=== PATIENT | male | born 1945 | race Caucasian/White ===

== ENCOUNTER → 2021-01-06 13:40 | Outpatient (BNVA) | payer OTHER, SELFPAY | PROVIDERS: PCP Nurse Practitioner; Referring Provider Nurse Practitioner; Visit Provider Specialist | DX: M25.539 Pain in unspecified wrist (principal); M65.4 Radial styloid tenosynovitis [de Quervain] | CPT/HCPCS: 73110 ==

== ENCOUNTER 2021-01-06 15:38 | Outpatient (CLI) | payer OTHER, SELFPAY | END 2021-01-06 15:39 | disposition home or self-care (01) | LOC: SPT 15:39 | PROVIDERS: PCP Nurse Practitioner; Visit Provider Specialist | DX: Z46.89 Encounter for fitting and adjustment of other specified devices (principal); M65.4 Radial styloid tenosynovitis [de Quervain] | CPT/HCPCS: L3809 ==

== ENCOUNTER 2021-01-13 12:57 | Outpatient (CLI) | payer OTHER, SELFPAY ==
--- NOTE | 2021-01-13 13:03 | CT_ITS ---
WS: [id number] CTA THORACIC AORTA WITH AND WITHOUT CONTRAST. 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 TECHNIQUE: CT imaging of the thorax is performed with and without contrast. After noncontrast imaging is performed, CT angiogram is performed during injection of Omnipaque 350; 95 mL IV.. Sagittal and c oronal reconstructions, sagittal and coronal MIP imaging is submitted. All CT scans at [facility] use at least one of these dose optimization techniques: automated exposure control; mA and/o r kV adjustment per patient size (includes targeted exams where dose is matched to clinical indicatio n); or iterative reconstruction. DLP: 2330.79 mGy.cm COMPARISON: None available. Moderate atherosclerosis of the aorta. There is no aneurysm. Origin of the great vessels are all knutson nt with scattered atherosclerotic plaque. Innominate artery and the proximal RIGHT subclavian artery are normal. Proximal RIGHT common carotid artery and LEFT common carotid arteries are both patent. LE FT subclavian artery arises normally from the arch. There is a complete occlusion several centimeters distal to the origin of the LEFT subclavian artery. Complete occlusion extends over a length of 2.2 cm. Dominant LEFT vertebral artery supplying flow to the distal subclavian artery. There is an additi onal stenosis at the junction of the LEFT subclavian with LEFT axillary artery which is a very high-g rade stenosis, 80%. Hyperinflated lungs with chronic emphysema. There is a partially calcified nodule in the RIGHT upper lobe measuring 11 x 18 mm. There are additional scattered calcified nodules. No pleural effusion. No pneumonia. No adenopathy. Mild enlargement of the heart chambers. No pericardial effusion. Moderate s ize hiatal hernia. There is a mass in the RIGHT kidney measuring 15 mm. On the noncontrast examination is masses of incr eased density. Masses low-attenuation on the postcontrast images in the mid kidney. Cholelithiasis wi thout acute cholecystitis. Marked atherosclerotic plaque within the suprarenal aorta and mesenteric a rteries. Increase in thoracic kyphosis. CT/CT angio chest [id number] IMPRESSION: 1. 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 2. Dominant LEFT vertebral artery supplying blood to the distal subclavian art galileo. 3. There is an at additional high-grade stenosis, 80%, involving the LEFT subc lavian artery at its junction with the axillary artery. 4. Additional atherosclerotic plaque involving the aorta and remaining great v essels with no additional high-grade stenoses. 5. Partially calcified mass in the RIGHT upper lobe is probably a granuloma or hamartoma. 6. Hyperdense mass in the RIGHT kidney without significant enhancement. This m ay be hemorrhagic cyst or cyst with increased protein content. Suggest further evaluation by ultrasound to confirm findings. 7. Cholelithiasis without acute cholecystitis.
[2021-01-13 14:19] LABS: Blood Urea Nitrogen 27 mg/dL (8-23)
--- NOTE | 2021-01-13 14:47 | USCV_ITS ---
Art Hollins Age: 75 Gender: M : 1945 Exam Date: 01/13/2021 15:17 Ordering Phys: Britni Alvarez MD ([email or web address]) Technologist: Gloria Romano Exam Location: [facility] [place] Indication: MURMUR BP: 156 / 58 HR: 85 Rhythm: Sinus Technical Quality: Adequate MEASUREMENTS (Male / Female) Normal Values 2D ECHO LV Diastolic Diameter PLAX 4.4 cm 4.2 - 5.9 / 3.9 - 5.3 cm LV Systolic Diameter PLAX 3.0 cm LV Chamber Size 3.1 cm IVS Diastolic Thickness 1.4 cm 0.6 - 1.0 / 0.6 - 0.9 cm IVS Systolic Thickness 1.2 cm LVPW Diastolic Thickness 1.2 cm 0.6 - 1.0 / 0.6 - 0.9 cm LVPW Systolic Thickness 1.3 cm RV Chamber Size 2.1 cm LVOT Diameter 2.1 cm LV Ejection Fraction 2D Teich 59.2 % LV Ejection Fraction MOD 2C 22.5 % LV Ejection Fraction 2C AL 23.0 % LA Diameter 2.6 cm LA Width 3.7 cm LA Height 5.2 cm RA Width 3.4 cm RA Height 4.7 cm Aorta at Sinotubular Diameter 3.2 cm M-MODE LV Diastolic Diameter MM 4.3 cm 4.2 - 5.9 / 3.9 - 5.3 cm LV Systolic Diameter MM 3.0 cm LV Ejection Fraction MM Teich 58.3 % IVS Diastolic Thickness MM 0.8 cm 0.6 - 1.0 / 0.6 - 0.9 cm IVS Systolic Thickness MM 1.6 cm LVPW Diastolic Thickness MM 1.1 cm 0.6 - 1.0 / 0.6 - 0.9 cm LVPW Systolic Thickness MM 1.6 cm Aortic Annulus Diameter 3.9 cm LA Ao Ratio MM 0.7 MV E Point Septal Separation 0.4 cm DOPPLER AV Peak Velocity 149.0 cm/s LVOT Peak Velocity 101.0 cm/s AV Area Cont Eq vti 2.9 cm squared AV Area Cont Eq pk 2.3 cm squared MV Area PHT 3.4 cm squared Mitral E to A Ratio 1.3 MV E' Velocity 71.5 cm/s Mitral E to MV E' Ratio 12.9 Mitral E to LV E' Lateral Ratio 12.4 Mitral E to LV E' Septal Ratio 13.8 TR Peak Velocity 166.5 cm/s TR Peak Gradient 11.1 mmHg TR Mean Velocity 101.7 cm/s TR Mean Gradient 5.0 mmHg TR Velocity Time Integral 42.4 cm TV Peak E Velocity 67.0 cm/s Right Atrial Pressure 3.0 mmHg Pulmonary Artery Systolic Pressu 14.1 mmHg PV Peak Velocity 37.0 cm/s RV Acceleration Time 0.1 s RV Ejection Time 0.3 s RV AcT/ET 0.4 FINDINGS Left Ventricle Normal left ventricular size and systolic function with no regional wall motion abnormalities. Left ventricular ejection fraction is estimated at 65 %. Normal diastolic function. Right Ventricle Normal right ventricular size and systolic function. Right ventricular systolic pressure 14.1 mmHg. Right Atrium Right atrium not well visualized. Left Atrium Mildly increased left atrial size. Mitral Valve Mild mitral annular calcification. No mitral valve stenosis. Trace mitral valve regurgitation. Aortic Valve Aortic valve not well visualized. No aortic valve stenosis. Trace to mild aortic valve regurgitation. Tricuspid Valve Tricuspid valve not well visualized. Trace tricuspid valve regurgitation. Pulmonic Valve Pulmonic valve not well visualized. Pericardium No pericardial effusion. Aorta Aorta not well visualized. CONCLUSIONS 1. Normal left ventricular size and systolic function with no regional wall motion abnormalities. Left ventricular ejection fraction is estimated at 65 %. Normal diastolic function. 2. Normal right ventricular size and systolic function. 3. Trace to mild aortic valve regurgitation. 4. No prior similar studies to compare. Britni Alvarez MD (Electronically Signed) Final Date: 15 Jan 2021 13:24 S
[2021-01-13] MEDS: iohexol 350 mg/mL 100 mL Btl IV (15:06)
== END 2021-01-13 12:58 | disposition home or self-care (01) ==
LOC: RADWPI 14:15 → RAD 15:03
PROVIDERS: PCP Nurse Practitioner; Visit Provider Internal Medicine Cardiovascular Disease
DX: I77.1 Stricture of artery (principal); R01.1 Cardiac murmur, unspecified; Z01.812 Encounter for preprocedural laboratory examination; I70.8 Atherosclerosis of other arteries; R91.8 Other nonspecific abnormal finding of lung field; K80.20 Calculus of gallbladder without cholecystitis without obstruction
CPT/HCPCS: 71275; 82565; 84520; 93306

== ENCOUNTER → 2021-07-08 09:48 | Outpatient (BNVA) | payer OTHER, SELFPAY | PROVIDERS: PCP Nurse Practitioner; Visit Provider Urology | DX: R97.20 Elevated prostate specific antigen [PSA] (principal) | CPT/HCPCS: 81003; 84153 ==

== ENCOUNTER → 2022-04-20 13:51 | Outpatient (BNVA) | payer OTHER, SELFPAY | PROVIDERS: PCP Nurse Practitioner; Visit Provider Internal Medicine Cardiovascular Disease | DX: I10 Essential (primary) hypertension (principal); I77.1 Stricture of artery; E78.5 Hyperlipidemia, unspecified; Z87.891 Personal history of nicotine dependence | CPT/HCPCS: 99214 ==

== ENCOUNTER 2022-09-28 23:33 | Emergency (ER) | payer OTHER, SELFPAY ==
[2022-09-28 23:38] VITALS: BP 148/60; PULSE 92; RESP 18; TEMP 36.3; O2SAT 94; BMI 23.5
[2022-09-28 23:46] VITALS: BP 159/84; PULSE 86; RESP 18; O2SAT 100
--- NOTE | 2022-09-28 23:55 | CTR_ITS ---
PROCEDURE INFORMATION: Exam: CT Abdomen And Pelvis With Contrast Exam date and time: 09/29/2022 1:07 AM Age: 77 years old Clinical indication: Nausea and vomiting; Abdominal pain; Localized; Right lower quadrant (rlq); Prior surgery; Surgery type: Colon resection. Colostomy reversal. Patient HX: C/O rlq pain with n/v. History of diverticulitis and hiatal hernia. ; Additional info: Abd pain TECHNIQUE: Imaging protocol: Computed tomography of the abdomen and pelvis with contrast. Radiation optimization: All CT scans at this facility use at least one of these dose optimization techniques: automated exposure control; mA and/or kV adjustment per patient size (includes targeted exams where dose is matched to clinical indication); or iterative reconstruction. Contrast material: OMNI 350; Contrast volume: 75 ml; Contrast route: INTRAVENOUS (IV); COMPARISON: US renal BI* [id number] 11/17/2020 10:06 RADIATION DOSE METRICS: Total DLP (mGy-cm): 472.03 FINDINGS: Lungs: Moderate lung base interstitial scarring with early fibrosis possible. Heart: The heart is normal size. Diaphragm: Small hiatal hernia. Liver: Liver is mildly enlarged. Gallbladder and bile ducts: Few tiny calcified gallstones are present. Pancreas: Unremarkable with no suspicious mass. No ductal dilation. Spleen: The spleen is not enlarged. No suspicious enhancing mass is noted. Adrenal glands: Normal. No mass. Kidneys and ureters: Right mid renal hypodense mass lesion measures 2.1 cm. This is not a simple cyst on CT. Left extrarenal pelvis. Stomach and bowel: Multiple loops of small bowel measure up to about 4.2 cm. A right mid abdominal spigelian hernia is seen containing small bowel. This is likely strangulated/incarcerated. Sigmoid anastomotic postop changes. The colon is moderately fecal filled. Mild nonspecific gastric wall thickening. Distal small bowel loops are decompressed. Appendix: No evidence of appendicitis. Intraperitoneal space: No abscess or free air visualized. Mild diffuse mesenteric edema. Vasculature: Advanced diffuse vascular calcification noted. Lymph nodes: No enlarged lymph nodes. Urinary bladder: Unremarkable as visualized. Reproductive: Coarse prostatic calcifications. Large prostate. Bones/joints: Diffuse osteopenia. Mild lumbar degenerative change. Soft tissues: See Stomach and bowel finding. CT/CT abdomen pelvis w con* [id number] IMPRESSION: 1. Right mid abdominal spigelian hernia containing small bowel causes a moderate grade small bowel obstruction. This hernia appears strangulated/incarcerated. Advise emergent surgical consultation. 2. No abscess or free air. Diffuse mesenteric edema. 3. Cholelithiasis, very severe atherosclerosis, lung base fibrosis, constipation, and other findings above. 4. Right mid renal 2.1 cm hypodense mass or complex cyst. Advise outpatient ultrasound workup for this. 5. Call to provider has been initiated.
--- NOTE | 2022-09-28 23:56 | ED_ITS ---
HPI - Abdominal Pain General: Chief Complaint: Abdominal Pain Stated Complaint: stomach pain, dizzy, GI surgery history Time Seen by Provider: 09/28/22 23:37 Source: patient Mode of arrival: ambulatory Limitations: no limitations History of Present Illness: 77-year-old male who has had a history of dive rticulitis he states he had a rupture from his diverticulitis in 2010 had to have a colectomy he states he started having pain today having in the right lower quadrant he states pain is sharp he did have 1 episode of vomiting is also had a bowel movement today. He denies any fever he rates his pain a 6 out of 10 currently denies any worsening improving factors. Associated Symptoms: Reports nausea and vomiting; Denies chills, diarrhea, dysuria and fever(s) Review of Systems Const: Denies: fever(s), chills, body aches or change in appetite Eyes: Denies: blurry vision or eye discomfort ENMT: Denies: throat pain or dental pain Card: Denies: chest pain Resp: Denies: dyspnea GI: Reports: abdominal pain, nausea and vomiting; Denies: diarrhea : Denies: dysuria Musc: Denies: neck pain or back pain Skin/Breast: Denies: rash Neuro: Denies: headache(s) Psych: Denies: depression Kyaw/Lymph: Denies: easy bruising All/Imm: Denies: urticaria PFSH ED PFSH: Medical History COPD (chronic obstructive pulmonary disease) Diverticulosis Elevated PSA Hiatal hernia History of nonmelanoma skin cancer Hyperlipidemia Hypertension Low back pain Pulmonary embolism Pulmonary nodule Retinal ischemia Type 2 diabetes mellitus Vitamin D deficiency Surgical History H/O arthroscopic knee surgery History of colon resection History of tonsillectomy Hx of cataract surgery Family History Other CAD (coronary artery disease) Cancer Diabetes Hyperlipidemia Hypertension Stroke Denies family history of Clotting disorder Dementia Psychiatric illness Chronic kidney disease (CKD) Anesthesia complication Bleeding disorder Family history of premature coronary artery disease Lung disease Social History Smoking and tobacco status: former smoker Quit status (tobacco): has quit using tobacco Year quit tobacco: 2010 Former quit date comment: smoked 135 pack years Second hand smoke exposure: No Alcohol intake: current Alcohol intake frequency: holidays/special occasions only Physical Exam Const: COMMON NORMALS: no acute distress, patient oriented x3 and healthy appearing HENMT: COMMON NORMALS: normocephalic and atraumatic HEAD & SCALP: normocephalic and atraumatic Eye: COMMON NORMALS: Equal, round and reactive pupils present and EOMs intact bilaterally PUPIL: Yes Equal, round and reactive pupils present Neck/C-Spine: COMMON NORMALS: full ROM and supple Chest: COMMONS NORMALS: normal inspection of the chest and normal palpation of entire chest wall Resp: COMMON NORMALS: normal respiratory effort, No retractions, No use of accessory muscles and clear to auscultation bilaterally AUSCULTATION: clear to auscultation bilaterally Cardio: COMMON NORMALS: regular rate, regular rhythm and No murmurs present (C ardio) RATE: regular rate RHYTHM: regular rhythm GI: COMMON NORMALS: Normal to inspection, nondistended, normoactive bowel sounds present, Soft to palpation, non-tender and no masses PALPATION: Yes Soft to palpation Extremity: COMMON NORMALS: normal to inspection and full ROM Neuro: COMMON NORMALS: patient oriented x3, moves all extremities and no focal motor deficits Psych: COMMON NORMALS: mental status grossly normal, Normal thought process present and cooperative THOUGHT PROCESS: Normal thought process present Skin: COMMON NORMALS: no rashes or lesions noted and no wounds GENERAL SKIN EXAM: no rashes or lesions noted Course Vital Signs: Vital signs: Vital Signs Temperature 97.4 F L 09/28/22 23:38 Pulse Rate 82 09/29/22 00:46 Respiratory Rate 12 09/29/22 00:46 Blood Pressure 176/66 09/29/22 00:46 Pulse Oximetry 99 09/29/22 00:46 Oxygen Delivery Me thod 09/28/22 23:46 MDM - Abdominal Pain Medical Decision Making Patient presents here with abdominal pain caused by hernia was able to reduce his hernia without any difficulty he felt much improved after the reduction he stable for discharge at this time he is to follow-up with surgery and return if worsening he understands agrees to plan. Lab Data 09/29/22 00:08 09/29/22 00:08 Labs/Radiology: Radiology Impressions Abdomen/Pelvis CT 09/28/22 23:55 IMPRESSION: 1. Right mid abdominal spigelian hernia containing small bowel causes a moderate grade small bowel obstruction. This hernia appears strangulated/incarcerated. Advise emergent surgical consultation. 2. No abscess or free air. Diffuse mesenteric edema. 3. Cholelithiasis, very severe atherosclerosis, lung base fibrosis, constipation, and other findings above. 4. Right mid renal 2.1 cm hypodense mass or complex cyst. Advise outpatient ultrasound workup for this. 5. Call to provider has been initiated. ADDENDUM: 09/29/22 0141 THIS REPORT CONTAINS FINDINGS THAT MAY BE CRITICAL TO PATIENT CARE. The findings were verbally communicated via telephone conference at 1:39 AM [facility] on 09/29/[address] Wilson. The findings were acknowledged and understood. Laboratory Results WBC 13.3 10^3/uL (4.0-10.0) H 09/29/22 00:08 RBC 4.21 10^6/uL (4.1-5.3) 09/29/22 00:08 Hgb 13.4 g/dL (11.7-16.6) 09/29/22 00:08 Hct 40.2 % (42.0-52.0) L 09/29/22 00:08 MCV 95.5 fl (80-94) H 09/29/22 00:08 MCH 31.8 pg (28.0-34.0) 09/29/22 00:08 MCHC 33.3 g/dL (30.0-36.0) 09/29/22 00:08 RDW 11.9 % (12.1-15.1) L 09/29/22 00:08 Plt Count 196 10^3/cmm (130-400) 09/29/22 00:08 MPV 10.3 fL (7.4-10.4) 09/29/22 00:08 Neut % (Auto) 72.7 % 09/29/22 00:08 Lymph % (Auto) 5.4 % 09/29/22 00:08 Kinney % (Auto) 15.6 % 09/29/22 00:08 Eos % (Auto) 0.2 % 09/29/22 00:08 Baso % (Auto) 0.2 % 09/29/22 00:08 Neut # (Auto) 9.68 10^3/uL (1.8-7.7) H 09/29/22 00:08 Lymph # (Auto) 0.7 10^3/uL (0.8-4.8) L 09/29/22 00:08 Kinney # (Auto) 2.1 10^3/uL (0.2-0.9) H 09/29/22 00:08 Eos # (Auto) 0.0 10^3/uL (0.0-0.8) 09/29/22 00:08 Baso # (Auto) 0.0 10^3/uL (0.0-0.1) 09/29/22 00:08 Nucleated RBC % (auto) 0 % 09/29/22 00:08 Nucleated RBCs # 0.0 /100WBC 09/29/22 00:08 Sodium 139 mmol/L (136-145) 09/29/22 00:08 Potassium 4.2 mmol/L (3.5-5.1) 09/29/22 00:08 Chloride 102 mmol/L (98-107) 09/29/22 00:08 Carbon Dioxide 24 mmol/L (22-29) 09/29/22 00:08 Anion Gap 17.2 (5-19) 09/29/22 00:08 BUN 32 mg/dL (8-23) H 09/29/22 00:08 Creatinine 1.5 mg/dL (0.7-1.2) H 09/29/22 00:08 GFR Calculation Not Reportable 09/29/22 00:08 Glucose 143 mg/dL (65-115) H 09/29/22 00:08 Calculated Osmolality 297 mOsm/kg (285-295) H 09/29/22 00:08 Lactate 2.2 mmol/L (0.5-2.2) 09/29/22 00:08 Calcium 9.1 mg/dL (8.5-10.5) 09/29/22 00:08 Total Bilirubin 0.4 mg/dL (0.15-1.2) 09/29/22 00:08 AST 26 U/L (0-40) 09/29/22 00:08 ALT 14 U/L (0-41) 09/29/22 00:08 Alkaline Phosphatase 63 U/L (40-130) 09/29/22 00:08 Total Protein 6.9 g/dL (6.6-8.7) 09/29/22 00:08 Albumin 4.3 g/dL (3.5-5.2) 09/29/22 00:08 Globulin 2.6 g/dL (1.3-4.6) 09/29/22 00:08 Lipase 19 U/L (13-60) 09/29/22 00:08 Urine Color Yellow (Yellow) 09/29/22 01:02 Urine Appearance Clear (CLEAR) 09/29/22 01:02 Urine pH 7 (5-7) 09/29/22 01:02 Ur Specific [place] 1.010 (1.005-1.030) 09/29/22 01:02 Urine Protein 3+ (Negative) H 09/29/22 01:02 Urine Glucose (UA) Norm (Normal) 09/29/22 01:02 Urine Ketones Negative (Negative) 09/29/22 01:02 Urine Blood Neg (Negative) 09/29/22 01:02 Urine Nitrate Negative (Negative) 09/29/22 01:02 Urine Bilirubin Neg (Negative) 09/29/22 01:02 Urine Urobilinogen Norm mg/dL (Negative) 09/29/22 01:02 Ur Leukocyte Esterase Negative (Negative) 09/29/22 01:02 Urine RBC None /hpf (0-2) 09/29/22 01:02 Urine WBC None /hpf (0-5) 09/29/22 01:02 Ur Squamous Epith Cells 0-4 /hpf (0-5) H 09/29/22 01:02 Amorphous Sediment Trace /hpf 09/29/22 01:02 Urine Bacteria None /hpf (NONE) 09/29/22 01:02 Hyaline Casts 0-4 /lpf H 09/29/22 01:02 Discharge Plan Discharge Patient Disposition: Home Clinical Impression: Abdominal hernia Condition: Stable Prescriptions: No Action tramadol 50 mg tablet 50 mg PO DAILY PRN cholecalciferol (vitamin D3) 50 mcg (2,000 unit) capsule 50 mcg PO DAILY aspirin [Adult Low Dose Aspirin] 81 mg tablet,delayed release (DR/EC) 81 mg PO DAILY Metamucil 3.4 gram/5.4 gram powder 1 tbsp PO DAILY Rx Instructions: mix into at least 8 oz of water or juice before administering acetaminophen [Tylenol Extra Strength] 500 mg tablet 500 mg PO Q6H PRN Centrum Silver Ultra Men's 300-600-300 mcg tablet 1 tab PO DAILY atorvastatin 80 mg tablet 80 mg PO DAILY Qty: 90 3RF nifedipine 60 mg tablet extended release 24 hr 60 mg PO DAILY Qty: 90 3RF Rx Instructions: Takes 60 mg am and 30 mg PM nifedipine 30 mg tablet extended release 30 mg PO DAILY Qty: 90 3RF Rx Instructions: Takes 60 mg am and 30 mg PM furosemide 20 mg tablet 20 mg PO DAILY Qty: 90 3RF glipizide 10 mg tablet 10 mg PO DAILY Discharge Orders: Discharge ED (Routine); Ordered 09/29/22 Ordered By: Radha Wilson Referrals: Conor Aleman DO [Physician] - 1-3 days Loraine Salvador FNP [Primary Care Provider] - Discharge Activity: Resume usual activity Patient Instructions: Ventral Hernia (ED) Coding Level of Care Code 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
[2022-09-29] MEDS: sodium chloride 0.9% 1,000 ML 999 ML IV (00:06)
[2022-09-29] MEDS: ondansetron 2 mg/ML SDV 2 mL 4 MG IVP (00:06)
[2022-09-29] MEDS: HYDROmorphone 1 mg/mL INJ 1 mL 0.5 MG IVP (00:14)
[2022-09-29 00:28] LABS: Basophils % 0.2 %; Eosinophils % 0.2 %; Hematocrit 40.2 % (42.0-52.0); Hemoglobin 13.4 g/dL (11.7-16.6); Lymphocytes # 0.7 10^3/uL (0.8-4.8); Lymphocytes % 5.4 %; Mean Corpuscular HGB Conc 33.3 g/dL (30.0-36.0); Mean Corpuscular Hemoglobin 31.8 pg (28.0-34.0); Mean Corpuscular Volume 95.5 fl (80-94); Mean Platelet Volume 10.3 fL (7.4-10.4); Monocytes # 2.1 10^3/uL (0.2-0.9); Monocytes % 15.6 %; Neutrophils # 9.68 10^3/uL (1.8-7.7); Neutrophils % 72.7 %; Nucleated Red Blood Cells % 0 %; Platelet Count 196 10^3/cmm (130-400); Red Blood Count 4.21 10^6/uL (4.1-5.3); Red Cell Distribution Width 11.9 % (12.1-15.1); White Blood Count 13.3 10^3/uL (4.0-10.0)
[2022-09-29 00:46] VITALS: BP 176/66; PULSE 82; RESP 12; O2SAT 99
[2022-09-29 00:46] LABS: Alanine Aminotransferase 14 U/L (0-41); Albumin Level 4.3 g/dL (3.5-5.2); Alkaline Phosphatase 63 U/L (40-130); Anion Gap 17.2 (5-19); Aspartate Amino Transferase 26 U/L (0-40); Blood Urea Nitrogen 32 mg/dL (8-23); Calcium 9.1 mg/dL (8.5-10.5); Carbon Dioxide 24 mmol/L (22-29); Chloride 102 mmol/L (98-107); Globulin 2.6 g/dL (1.3-4.6); Glucose 143 mg/dL (65-115); Lipase 19 U/L (13-60); Osmolality Calculated 297 mOsm/kg (285-295); Potassium 4.2 mmol/L (3.5-5.1); Sodium 139 mmol/L (136-145); Total Bilirubin 0.4 mg/dL (0.15-1.2); Total Protein 6.9 g/dL (6.6-8.7)
[2022-09-29 00:47] LABS: Lactate (Lactic Acid level) 2.2 mmol/L (0.5-2.2)
[2022-09-29 00:57] LABS: Creatinine Clr Calc Pharmacy 40.2492
[2022-09-29] MEDS: iohexol 350 mg/mL 500 mL Btl (per mL) IV (01:08)
[2022-09-29 01:28] LABS: Slide Review Slide Review Perform
[2022-09-29 01:29] LABS: Urine Appearance Clear (CLEAR); Urine Color Yellow (Yellow)
[2022-09-29 01:30] LABS: Add Urine Microscopic? YES; Bilirubin Urine Neg (Negative); Blood Urine Neg (Negative); Glucose Urine UA Norm (Normal); Ketones Urine Negative (Negative); Leukocyte Esterase Urine Negative (Negative); Nitrate Urine Negative (Negative); Protein Urine 3+ (Negative); Urobilinogen Urine Norm (Negative); pH Urine 7 (5-7)
[2022-09-29 01:31] LABS: Add Urine Culture? No; Amorphous Sediment Urine TRACE /hpf; Hyaline Casts Urine 0-4 /lpf; Squamous Epithelial Cell Urine 0-4 /hpf (0-5)
[2022-09-29 01:54] VITALS: BP 174/50; PULSE 96; O2SAT 96
--- NOTE | 2022-09-29 10:26 | DCPLANNER ---
Addendum entered by Danna Monroe 09/30/22 11:13: manager cosmetic received the following message from the general surgery clinic regarding follow up appointment: Spoke to Pt he has [facility] and [employer] - made Pt aware that we could not use [facility] due to provider not in network... Pt stated he only wanted to use [facility] please refer elsewhere. manager cosmetic spoke with patient, and he stated [facility]. manager cosmetic emailed Karolina [facility], and informed her of this. Original Note: manager cosmetic had message to schedule a follow up appointment for patient with general surgery. manager cosmetic sent patients information to the front office staff at general surgery. Patients information will be printed and reviewed. Clinic will call patient with appointment information.
== END 2022-09-29 01:55 | disposition home or self-care (01) ==
PROVIDERS: Emergency Provider Emergency Medicine; PCP Nurse Practitioner
DX: K46.9 Unspecified abdominal hernia without obstruction or gangrene (principal); Z79.84 Long term (current) use of oral hypoglycemic drugs; Z79.82 Long term (current) use of aspirin; Z87.891 Personal history of nicotine dependence; J44.9 Chronic obstructive pulmonary disease, unspecified; E78.5 Hyperlipidemia, unspecified; I10 Essential (primary) hypertension; E11.9 Type 2 diabetes mellitus without complications
CPT/HCPCS: 74177; 80053; 81001; 83605; 83690; 85025; 96361; 96374; 99285; J1170; J2405; J7030; Q9967

== ENCOUNTER → 2023-01-18 13:33 | Outpatient (BNVA) | payer OTHER, SELFPAY | PROVIDERS: PCP Nurse Practitioner; Visit Provider Nurse Practitioner Family | DX: I10 Essential (primary) hypertension (principal); E78.5 Hyperlipidemia, unspecified; Z87.891 Personal history of nicotine dependence; Z79.82 Long term (current) use of aspirin | CPT/HCPCS: 99214 ==

== ENCOUNTER → 2023-02-07 14:25 | Outpatient (BNVA) | payer OTHER, SELFPAY | PROVIDERS: PCP Nurse Practitioner; Visit Provider Dermatology | DX: L57.0 Actinic keratosis (principal); L81.4 Other melanin hyperpigmentation; L82.1 Other seborrheic keratosis; Z85.828 Personal history of other malignant neoplasm of skin; Z87.891 Personal history of nicotine dependence | CPT/HCPCS: 17000; 17003; 99213 ==

== ENCOUNTER 2023-02-27 14:40 | Oncology outpatient (recurring) (ONCR) | payer OTHER, SELFPAY ==
[2023-02-27 15:32] LABS: Basophils % 0.6 %; Eosinophils # 0.2 10^3/uL (0.0-0.8); Eosinophils % 3.3 %; Hematocrit 34.4 % (42.0-52.0); Hemoglobin 11.4 g/dL (11.7-16.6); Lymphocytes % 36.4 %; Mean Corpuscular HGB Conc 33.1 g/dL (30.0-36.0); Mean Corpuscular Hemoglobin 31.4 pg (28.0-34.0); Mean Corpuscular Volume 94.8 fl (80-94); Mean Platelet Volume 9.8 fL (7.4-10.4); Monocytes # 0.8 10^3/uL (0.2-0.9); Monocytes % 14.5 %; Neutrophils # 2.28 10^3/uL (1.8-7.7); Neutrophils % 42.4 %; Nucleated Red Blood Cells % 0 %; Platelet Count 154 10^3/cmm (130-400); Red Blood Count 3.63 10^6/uL (4.1-5.3); Red Cell Distribution Width 12.1 % (12.1-15.1); White Blood Count 5.4 10^3/uL (4.0-10.0)
== END 2023-03-10 23:59 | disposition home or self-care (01) ==
PROVIDERS: PCP Nurse Practitioner; Visit Provider Internal Medicine Medical Oncology
DX: D64.9 Anemia, unspecified (principal); Z87.891 Personal history of nicotine dependence
CPT/HCPCS: 36415; 85025; 99203

== ENCOUNTER 2023-03-07 11:14 | Emergency (ER) | payer OTHER, SELFPAY ==
[2023-03-07 11:20] VITALS: BP 152/64; PULSE 83; RESP 16; TEMP 36.5; O2SAT 96; BMI 23.8
--- NOTE | 2023-03-07 11:59 | XR_ITS ---
WS: [id number] Exam: XR chest 1V portable [id number] Date/Time of Exam: 03/07/2023 12:03 PM Reason For Exam: dyspnea/cough No previous exams. Questionable 2.5 cm ill-defined nodular density involving the right suprahilar region. The lungs are hyperinflated and otherwise clear. No pleural effusions. Cardiomediastinal silhouette is unremarkable . Atherosclerotic plaquing of the thoracic aorta. Regional bony elements are intact. Recommendations: Nonemergent contrast CT scanning of the chest would be recommended for further erinn p. XR/XR chest 1V portable [id number] IMPRESSION: 1. Questionable 2.5 cm left suprahilar nodule. Pulmonary neoplasm not excluded. 2. Pulmonary hyperinflation which may indicate obstructive lung disease.
--- NOTE | 2023-03-07 12:09 | W.ED.SYNCOPE ---
HPI - Syncope General: Chief Complaint: Syncope Stated Complaint: Loc last night, weakness, N/V, Time Seen by Provider: 03/07/23 11:29 Source: patient Mode of arrival: ambulatory History of Present Illness: 77-year-old male presents emergency room via private vehicle. Patient states he has not been feeling well lately has been having a lot of diarrhea and nausea he got up from his recliner to go back to a room to change close because he had been sweating and wanted some clean dry close when he got to his bedroom he states he had become dizzy and lightheaded he fell down and was unable to get up he fell asleep on the floor for several hours and then crawled back to the couch in the living room and laid there he was unable to get any help this morning he was finally able to get someone to come and help him that brought him to the emergency room and diarrhea has stopped he still is somewhat nauseous. No associated chest pains or palpitations MD complaint: collapsed Onset (ago): hour(s) Prodromal symptoms: lightheaded Witnessed: No Context: standing up Injuries sustained associated with event: none Associated symptoms: Reports lightheadedness and nausea; Deny abdominal pain, chest pain or fever(s) Treatments prior to arrival: none Review of Systems Const: Denies: fever(s), chills, body aches, change in appetite, fatigue or malaise ENMT: Denies: throat pain, ear or mastoid pain, nasal discharge or nasal congestion Card: Reports: lightheadedness; Denies: chest pain, palpitations or irregular heart rhythm Resp: Denies: dyspnea, productive cough or non-productive cough GI: Reports: nausea and diarrhea; Denies: abdominal pain : Denies: flank pain, dysuria, urinary frequency or urinary urgency Skin/Breast: Denies: rash or pruritus PFSH ED PFSH: Medical History COPD (chronic obstructive pulmonary disease) Diverticulosis Elevated PSA Hiatal hernia History of nonmelanoma skin cancer Hyperlipidemia Hypertension Low back pain Pulmonary embolism Pulmonary nodule Retinal ischemia Type 2 diabetes mellitus Vitamin D deficiency Surgical History H/O arthroscopic knee surgery History of colon resection History of tonsillectomy Hx of cataract surgery Family History Other CAD (coronary artery disease) Cancer Diabetes Hyperlipidemia Hypertension Stroke Denies family history of Clotting disorder Dementia Psychiatric illness Chronic kidney disease (CKD) Anesthesia complication Bleeding disorder Family history of premature coronary artery disease Lung disease Social History Smoking and tobacco status: former smoker Quit status (tobacco): has quit using tobacco Year quit tobacco: 2010 Former quit date comment: smoked 135 pack years Second hand smoke exposure: No Alcohol intake: current Alcohol intake frequency: holidays/special occasions only Substance/Drug Use: never Physical Exam Const: GENERAL APPEARANCE: cooperative and comfortable ORIENTATION/CONSCIOUSNESS: Yes awake, Yes oriented to person, Yes oriented to place and Yes oriented to time HENMT: COMMON NORMALS: normocephalic, atraumatic and hearing grossly normal bilaterally HEAD & SCALP: normocephalic and atraumatic Resp: COMMON NORMALS: normal respiratory effort, No retractions, No use of accessory muscles and clear to auscultation bilaterally AUSCULTATION: clear to auscultation bilaterally Cardio: COMMON NORMALS: regular rate, regular rhythm and No murmurs present (Cardio) RATE: regular rate RHYTHM: regular rhythm GI: COMMON NORMALS: Soft to palpation and No hepatosplenomegaly present AUSCULTATION: Yes normoactive bowel sounds PALPATION: Yes Soft to palpation, No Tenderness to palpation present (GI), No Guarding due to palpation present (GI) and Yes No hepatosplenomegaly present Extremity: COMMON NORMALS: normal to inspection, capillary refill normal, no clubbing, cyanosis or edema, no calf tenderness and no pedal edema Neuro: SENSORIUM/ORIENTATION: Yes oriented to person, Yes oriented to place and Yes oriented to time Skin: COMMON NORMALS: no rashes or lesions noted GENERAL SKIN EXAM: no rashes or lesions noted Course Vital Signs: Vital signs: Vital Signs Temperature 97.7 F 03/07/23 11:20 Pulse Rate 84 03/07/23 13:50 Respiratory Rate 18 03/07/23 12:11 Blood Pressure 152/51 03/07/23 13:50 Pulse Oximetry 97 03/07/23 12:11 Oxygen Delivery Me thod Room Air 03/07/23 12:11 MDM - Syncope Medical Decision Making After IV fluids pt is feeling better. WIll dicharge home. Liquid diet and advance as tolerated return if has further problems Medical Records I reviewed the patient's medical records. Lab Data I reviewed the patient's lab results. 03/07/23 12:14 03/07/23 12:14 Radiology Impressions Chest X-Ray 03/07/23 11:59 IMPRESSION: 1. Questionable 2.5 cm left suprahilar nodule. Pulmonary neoplasm not excluded. 2. Pulmonary hyperinflation which may indicate obstructive lung disease. Laboratory Results WBC 16.6 10^3/uL (4.0-10.0) H 03/07/23 12:14 RBC 4.11 10^6/uL (4.1-5.3) 03/07/23 12:14 Hgb 12.7 g/dL (11.7-16.6) 03/07/23 12:14 Hct 39.3 % (42.0-52.0) L 03/07/23 12:14 MCV 95.6 fl (80-94) H 03/07/23 12:14 MCH 30.9 pg (28.0-34.0) 03/07/23 12:14 MCHC 32.3 g/dL (30.0-36.0) 03/07/23 12:14 RDW 12.4 % (12.1-15.1) 03/07/23 12:14 Plt Count 176 10^3/cmm (130-400) 03/07/23 12:14 MPV 10.3 fL (7.4-10.4) 03/07/23 12:14 Neut % (Auto) 79.8 % 03/07/23 12:14 Lymph % (Auto) 5.1 % 03/07/23 12:14 [place] % (Auto) 10.1 % 03/07/23 12:14 Eos % (Auto) 0.1 % 03/07/23 12:14 Baso % (Auto) 0.1 % 03/07/23 12:14 Neut # (Auto) 13.25 10^3/uL (1.8-7.7) H 03/07/23 12:14 Lymph # (Auto) 0.8 10^3/uL (0.8-4.8) 03/07/23 12:14 [place] # (Auto) 1.7 10^3/uL (0.2-0.9) H 03/07/23 12:14 Eos # (Auto) 0.0 10^3/uL (0.0-0.8) 03/07/23 12:14 Baso # (Auto) 0.0 10^3/uL (0.0-0.1) 03/07/23 12:14 Nucleated RBC % (auto) 0 % 03/07/23 12:14 Nucleated RBCs # 0.0 /100WBC 03/07/23 12:14 Sodium 142 mmol/L (136-145) 03/07/23 12:14 Potassium 5.0 mmol/L (3.5-5.1) 03/07/23 12:14 Chloride 104 mmol/L (98-107) 03/07/23 12:14 Carbon Dioxide 25 mmol/L (22-29) 03/07/23 12:14 Anion Gap 18.0 (5-19) 03/07/23 12:14 BUN 37 mg/dL (8-23) H 03/07/23 12:14 Creatinine 1.4 mg/dL (0.7-1.2) H 03/07/23 12:14 GFR Calculation Not Reportable 03/07/23 12:14 Glucose 127 mg/dL (65-115) H 03/07/23 12:14 Calculated Osmolality 304 mOsm/kg (285-295) H 03/07/23 12:14 Calcium 9.1 mg/dL (8.5-10.5) 03/07/23 12:14 Total Bilirubin 0.9 mg/dL (0.15-1.2) 03/07/23 12:14 AST 25 U/L (0-40) 03/07/23 12:14 ALT 22 U/L (0-41) 03/07/23 12:14 Alkaline Phosphatase 71 U/L (40-130) 03/07/23 12:14 Troponin T Baseline 39 ng/L (0-15) H 03/07/23 12:14 Troponin T 120 Minute 38.52 ng/L (0-15) H 03/07/23 13:53 Delta Troponin T -0.48 ABS# (0-10) L 03/07/23 13:53 Total Protein 5.9 g/dL (6.6-8.7) L 03/07/23 12:14 Albumin 4.1 g/dL (3.5-5.2) 03/07/23 12:14 Globulin 1.8 g/dL (1.3-4.6) 03/07/23 12:14 Discharge Plan Discharge Patient Disposition: Home Clinical Impression: Syncope due to orthostatic hypotension Condition: Stable Prescriptions: No Action tramadol 50 mg tablet 50 mg PO DAILY PRN (Reason: Pain) cholecalciferol (vitamin D3) 50 mcg (2,000 unit) capsule 50 mcg PO DAILY aspirin [Adult Low Dose Aspirin] 81 mg tablet,delayed release (DR/EC) 81 mg PO DAILY acetaminophen [Tylenol Extra Strength] 500 mg tablet 500 mg PO Q6H PRN (Reason: Pain) Metamucil 3.4 gram/5.4 gram powder 1 tbsp PO BID Rx Instructions: mix into at least 8 oz of water or juice before administering Centrum Silver Ultra Men's 300-600-300 mcg tablet 1 tab PO DAILY atorvastatin 80 mg tablet 80 mg PO DAILY Qty: 90 3RF furosemide 20 mg tablet 20 mg PO DAILY Qty: 90 3RF nifedipine 60 mg tablet extended release 24hr 60 mg PO QAM nifedipine 30 mg tablet extended release 30 mg PO QPM simethicone [Gas-X Extra Strength] 125 mg capsule 125 mg PO DAILY PRN (Reason: Gastric Reflux) Discharge Orders: Discharge ED (Routine); Ordered 03/07/23 Ordered By: Serge Stevenson Referrals: Loraine Salvador FNP [Primary Care Provider] - Discharge Diet: Usual diet Discharge Activity: Limit activity as instructed Patient Instructions: Opioid Safety, Pain Management Activity Restrictions/Additional Instructions: Avoid exertional activity, increase fluid intake. Recheck with your doctor in the next 2 days. If you have any worsening or changes symptoms return to the emergency room. Coding Level of Care Code ED [employer] Manufacturer for Vicki Jackson
[2023-03-07 12:11] VITALS: PULSE 77; RESP 18; O2SAT 97
--- NOTE | 2023-03-07 12:23 | ECG_ITS ---
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 Measurements Intervals [place] Rate: 67 P: 15 [place]: 151 QRS: 81 QRSD: 93 T: 9 QT: 400 QTc: 425 Interpretive Statements SINUS RHYTHM WITH SINUS ARRHYTHMIA NONSPECIFIC T-WAVE ABNORMALITY No previous ECG available for comparison Electronically Signed On 03-09-2023 9:58:57 CDT by Ashu Dukes M.D. [id number]
[2023-03-07] MEDS: sodium chloride 0.9% 1,000 ML 999 ML IV (12:24)
[2023-03-07 12:41] LABS: Basophils % 0.1 %; Eosinophils % 0.1 %; Hematocrit 39.3 % (42.0-52.0); Hemoglobin 12.7 g/dL (11.7-16.6); Lymphocytes # 0.8 10^3/uL (0.8-4.8); Lymphocytes % 5.1 %; Mean Corpuscular HGB Conc 32.3 g/dL (30.0-36.0); Mean Corpuscular Hemoglobin 30.9 pg (28.0-34.0); Mean Corpuscular Volume 95.6 fl (80-94); Mean Platelet Volume 10.3 fL (7.4-10.4); Monocytes # 1.7 10^3/uL (0.2-0.9); Monocytes % 10.1 %; Neutrophils # 13.25 10^3/uL (1.8-7.7); Neutrophils % 79.8 %; Nucleated Red Blood Cells % 0 %; Platelet Count 176 10^3/cmm (130-400); Red Blood Count 4.11 10^6/uL (4.1-5.3); Red Cell Distribution Width 12.4 % (12.1-15.1); White Blood Count 16.6 10^3/uL (4.0-10.0)
[2023-03-07 12:59] LABS: Troponin(5th) Baseline 39 ng/L (0-15)
[2023-03-07 13:02] LABS: Alanine Aminotransferase 22 U/L (0-41); Albumin Level 4.1 g/dL (3.5-5.2); Alkaline Phosphatase 71 U/L (40-130); Aspartate Amino Transferase 25 U/L (0-40); Blood Urea Nitrogen 37 mg/dL (8-23); Calcium 9.1 mg/dL (8.5-10.5); Carbon Dioxide 25 mmol/L (22-29); Chloride 104 mmol/L (98-107); Globulin 1.8 g/dL (1.3-4.6); Glucose 127 mg/dL (65-115); Osmolality Calculated 304 mOsm/kg (285-295); Sodium 142 mmol/L (136-145); Total Bilirubin 0.9 mg/dL (0.15-1.2); Total Protein 5.9 g/dL (6.6-8.7)
[2023-03-07 13:50] VITALS: BP 152/51; BP 161/51; BP 167/54; PULSE 78; PULSE 84; PULSE 88
--- NOTE | 2023-03-07 14:00 | ECG_ITS ---
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 Measurements Intervals [place] Rate: 68 P: 38 [place]: 133 QRS: 71 QRSD: 100 T: 11 QT: 412 QTc: 440 Interpretive Statements SINUS RHYTHM NONSPECIFIC T-WAVE ABNORMALITY Compared to ECG 03/07/2023 12:23:53 Sinus arrhythmia no longer present T-wave abnormality still present Electronically Signed On 03-09-2023 12:26:34 CDT by Ashu Dukes M.D. [id number]
[2023-03-07 14:22] LABS: Troponin 5 2HR 38.52 ng/L (0-15)
[2023-03-07 14:24] LABS: Troponin 5 2HR Delta -0.48 ABS# (0-10)
--- NOTE | 2023-03-13 09:51 | PC.SOCIAL ---
Addendum entered by Danna Monroe 04/14/23 08:49: Patient had a follow up appointment scheduled with [facility] - patient did attend appointment Addendum entered by Danna Monroe 03/27/23 16:05: Patient has a follow up appointment scheduled for Tuesday, April 11, [address]23 at 2:[address] Connelly at [facility]. Addendum entered by Danna Monroe 03/22/23 15:25: Referral was sent to pulmonology for review, clinic will call patient with appointment information. Original Note: Oncology F/u Referral to oncology at this time; clinic to contact patient with appt date/time.
== END 2023-03-07 15:28 | disposition home or self-care (01) ==
PROVIDERS: Emergency Provider Family Medicine; PCP Nurse Practitioner
DX: I95.1 Orthostatic hypotension (principal); Z79.82 Long term (current) use of aspirin; Z87.891 Personal history of nicotine dependence; J44.9 Chronic obstructive pulmonary disease, unspecified; E78.5 Hyperlipidemia, unspecified; I10 Essential (primary) hypertension; E11.9 Type 2 diabetes mellitus without complications
CPT/HCPCS: 36415; 71045; 80053; 84484; 85025; 93005; 99285; J7030

== ENCOUNTER → 2023-04-11 13:25 | Outpatient (BNVA) | payer OTHER, SELFPAY | PROVIDERS: PCP Nurse Practitioner; Visit Provider Internal Medicine Pulmonary Disease | DX: J44.9 Chronic obstructive pulmonary disease, unspecified; R91.1 Solitary pulmonary nodule; Z87.891 Personal history of nicotine dependence; K44.9 Diaphragmatic hernia without obstruction or gangrene | CPT/HCPCS: 99214 ==

== ENCOUNTER 2023-05-02 12:32 | Outpatient (CLI) | payer OTHER, SELFPAY | END 2023-05-02 12:33 | disposition home or self-care (01) | LOC: RT 12:33 | PROVIDERS: PCP Nurse Practitioner; Visit Provider Internal Medicine Pulmonary Disease | DX: R06.02 Shortness of breath (principal) | CPT/HCPCS: 94010; 94618; 94726; 94729; 99214 ==

== ENCOUNTER → 2023-10-10 13:27 | Outpatient (BNVA) | payer OTHER, SELFPAY | PROVIDERS: PCP Nurse Practitioner; Visit Provider Nurse Practitioner Family | DX: Z85.828 Personal history of other malignant neoplasm of skin (principal); L81.4 Other melanin hyperpigmentation; L82.1 Other seborrheic keratosis; L57.8 Other skin changes due to chronic exposure to nonionizing radiation; D22.4 Melanocytic nevi of scalp and neck; L57.0 Actinic keratosis; L60.3 Nail dystrophy | CPT/HCPCS: 17000; 99213 ==

== ENCOUNTER 2023-10-26 13:25 | Outpatient (CLI) | payer OTHER, SELFPAY ==
--- NOTE | 2023-10-26 13:32 | US_ITS ---
WS: [id number] RENAL ULTRASOUND HISTORY: BILATERAL RENAL US COMPARISON: None available. TECHNIQUE: 2-D and color Doppler imaging of the kidney submitted. Right kidney: 9.6 cm x 4.6 cm x 4.7 cm. Cortex: 1.6 cm Normal echogenicity with no hydronephrosis or mass. Left kidney: 9.9 cm x 4.7 cm x 4.7 cm. Cortex: 1.4 cm Normal echogenicity with no hydronephrosis or mass. Aorta: Poorly visualized. Urinary Bladder: Normally distended. There is a small posterior bladder diverticulum containing debri s. IMPRESSION: 1. No hydronephrosis or mass. No obstruction. 2. No cortical thinning. 3. Small posterior bladder wall diverticulum.
== END 2023-10-26 13:26 | disposition home or self-care (01) ==
LOC: RAD 13:26
PROVIDERS: PCP Nurse Practitioner; Visit Provider Nurse Practitioner
DX: Z01.89 Encounter for other specified special examinations (principal); N32.3 Diverticulum of bladder
CPT/HCPCS: 76770

== ENCOUNTER → 2023-11-21 11:26 | Outpatient (BNVA) | payer OTHER, SELFPAY | PROVIDERS: PCP Nurse Practitioner; Visit Provider Internal Medicine Cardiovascular Disease | DX: E78.5 Hyperlipidemia, unspecified (principal); I10 Essential (primary) hypertension; I70.8 Atherosclerosis of other arteries; E11.9 Type 2 diabetes mellitus without complications; J44.9 Chronic obstructive pulmonary disease, unspecified; I73.9 Peripheral vascular disease, unspecified; I74.3 Embolism and thrombosis of arteries of the lower extremities; Z79.01 Long term (current) use of anticoagulants; Z87.891 Personal history of nicotine dependence | CPT/HCPCS: 99214 ==

== ENCOUNTER 2023-11-28 14:28 | Inpatient (IN) | payer OTHER, SELFPAY ==
[2023-11-28] VITALS (8 sets, daily range): BP systolic 170–186; BP diastolic 54–132; PULSE 86–99; RESP 16–20; TEMP 36.5–36.9; O2SAT 88–98; BMI 25.9
--- NOTE | 2023-11-28 14:42 | PC.PHAR ---
Addendum entered by Poonam Reynolds 11/28/23 15:16: REFAXED 3:15PM Original Note: [facility] FAXING FOR MED LIST 2:40PM 11/28/23
--- NOTE | 2023-11-28 14:44 | XR_ITS ---
WS: [id number] Portable AP upright chest, 11/28/2023 Clinical Data: dyspnea/cough Comparison: Portable chest, 03/07/2023 Findings: No nodules or masses are seen. There are small bilateral pleural effusions. There is a pat tavon peripheral opacity in the right lung which could represent atelectasis and/or pneumonia. The hear t is normal. The pulmonary vascularity is not increased. No pneumonia or pneumothorax is seen. The ao rtic arch shows calcification and tortuosity. Monitor leads are on the chest wall. Impression: 1. Atherosclerosis. 2. Small bilateral pleural effusions. 3. Peripheral patchy right lung opacity which could represent pneumonia or atelectasis.
--- NOTE | 2023-11-28 14:45 | ED_ITS ---
Documented by User: Serge Stevenson DO 11/29/23 07:45 HPI - SOB/Dyspnea 2 General: Chief Complaint: Shortness of Breath/Dyspnea Stated Complaint: SOB Time Seen by Provider: 11/28/23 14:30 Source: patient Mode of arrival: ambulatory History of Present Illness: HPI Narrative: 78-year-old male arrives to the ER via a [facility]. He was seen at the [facility] for shortness of breath and referred here. Initially arrived he was on 4 to 5 L of oxygen we titrated that down he seemed to maintain okay for a time and normally does not wear oxygen he was noted to have increased work of breathing. He denies chest pain. Later in the visit he was noted to desat into the upper 80s on room air and is oxygen of 3 started at 2 L/min. He denies any nausea vomiting or diarrhea. The [facility] was also concerned about EKG changes. He denies chest pain on arrival here. MD elicited complaint: shortness of breath Pertinent past history: COPD Exacerbating factors: nothing Relieving factors: nothing Known history of: COPD Associated symptoms: Reports cough; Deny abdominal pain, chest congestion, chest pain, diaphoresis, dizziness, extremity pain, fever(s), hemoptysis, lightheadedness, myalgias, nausea, orthopnea, palpitations, paresthesias, polydipsia, polyuria, rash, sense of impending doom, syncope or vomiting Treatment prior to arrival: oxygen Related Data: Home oxygen amount: none Review of Systems 2 Const: Denies: fever(s) or diaphoresis Card: Denies: chest pain, palpitations, lightheadedness, syncope or orthopnea Resp: Denies: hemoptysis or chest congestion GI: Denies: abdominal pain, nausea or vomiting Musc: Denies: extremity pain Neuro: Denies: dizziness Endo: Denies: polyuria or polydipsia PFSH ED 2 PFSH: Medical History Pulmonary vascular congestion Embolism and thrombosis of arteries of the lower extremities Peripheral arterial disease History of nonmelanoma skin cancer COPD (chronic obstructive pulmonary disease) Elevated PSA Pulmonary embolism Hypertension Hyperlipidemia Low back pain Retinal ischemia Pulmonary nodule Type 2 diabetes mellitus Vitamin D deficiency Diverticulosis Hiatal hernia Surgical History History of colon resection History of tonsillectomy H/O arthroscopic knee surgery Hx of cataract surgery Family History Other CAD (coronary artery disease) Cancer Diabetes Hyperlipidemia Hypertension Stroke Denies family history of Clotting disorder Dementia Psychiatric illness Chronic kidney disease (CKD) Anesthesia complication Bleeding disorder Family history of premature coronary artery disease Lung disease Social History Smoking and tobacco/nicotine status: former use of tobacco/nicotine Quit status (tobacco/nicotine): has quit using Year quit tobacco: 2010 Former quit date comment: smoked 135 pack years Second hand smoke exposure: No Alcohol intake: current Alcohol intake frequency: holidays/special occasions only Substance/Drug Use: never Physical Exam 2 Const: GENERAL APPEARANCE: cooperative ORIENTATION/CONSCIOUSNESS: Yes awake, Yes oriented to person, Yes oriented to place and Yes oriented to time HENMT: COMMON NORMALS: normocephalic, atraumatic and hearing grossly normal bilaterally HEAD & SCALP: normocephalic and atraumatic Resp: AUSCULTATION: rhonchi and wheezes Cardio: COMMON NORMALS: regular rate, regular rhythm and No murmurs present (Cardio) RATE: regular rate RHYTHM: regular rhythm GI: COMMON NORMALS: Soft to palpation and No hepatosplenomegaly present A USCULTATION: Yes normoactive bowel sounds PALPATION: Yes Soft to palpation, No Tenderness to palpation present (GI), No Guarding due to palpation present (GI) and Yes No hepatosplenomegaly present Extremity: COMMON NORMALS: normal to inspection, capillary refill normal, no clubbing, cyanosis or edema, no calf tenderness and no pedal edema Neuro: SENSORIUM/ORIENTATION: Yes oriented to person, Yes oriented to place and Yes oriented to time Skin: COMMON NORMALS: no rashes or lesions noted GENERAL SKIN EXAM: no rashes or lesions noted Course 2 Vital Signs: Vital signs: Vital Signs Temperature 98.4 F 11/29/23 04:00 Pulse Rate 87 11/29/23 04:00 Respiratory Rate 18 11/29/23 04:00 Blood Pressure 168/63 11/29/23 04:00 Pulse Oximetry 91 11/29/23 04:00 Oxygen Delivery Me thod Nasal Cannula 11/29/23 04:00 Oxygen Flow Rate 2 11/29/23 04:00 MDM - SOB/Dyspnea Medical Decision Making Care signed out to Dr. Bradley at change of shift. See final notes for diagnosis and disposition. Physical exam completed and documented, reviewed the CBC, CMP chest x-ray which demonstrated concern for vascular congestion and increased work of breathing. Medical Records I reviewed the patient's medical records. Lab Data 11/29/23 05:17 11/29/23 05:17 Labs/Radiology: Laboratory Results WBC 8.78 10^3/uL (3.29-11.43) 11/28/23 14:36 RBC 4.06 10^6/uL (3.85-5.65) 11/28/23 14:36 Hgb 12.80 g/dL (11.27-16.99) 11/28/23 14:36 Hct 38.5 % (37-53) 11/28/23 14:36 MCV 94.8 fl (82-101) 11/28/23 14:36 MCH 31.5 pg (27-33) 11/28/23 14:36 MCHC 33.2 g/dL (30-55) 11/28/23 14:36 RDW 12.1 % (12.1-15.1) 11/28/23 14:36 Plt Count 210 10^3/cmm (157-399) 11/28/23 14:36 MPV 10.5 fL (7.4-10.4) H 11/28/23 14:36 Neut % (Auto) 56.4 % 11/28/23 14:36 Lymph % (Auto) 15.4 % 11/28/23 14:36 Sioux % (Auto) 20.6 % 11/28/23 14:36 Eos % (Auto) 0.2 % 11/28/23 14:36 Baso % (Auto) 0.1 % 11/28/23 14:36 Neut # (Auto) 4.95 10^3/uL (1.8-7.7) 11/28/23 14:36 Lymph # (Auto) 1.4 10^3/uL (0.8-4.8) 11/28/23 14:36 [place]oux # (Auto) 1.8 10^3/uL (0.2-0.9) H 11/28/23 14:36 Eos # (Auto) 0.0 10^3/uL (0.0-0.8) 11/28/23 14:36 Baso # (Auto) 0.0 10^3/uL (0.0-0.1) 11/28/23 14:36 Nucleated RBC % (auto) 0 % 11/28/23 14:36 Nucleated RBCs # 0.0 /100WBC 11/28/23 14:36 D-Dimer 1.24 ug/mLFEU (0-0.59) H 11/28/23 14:36 Sodium 142 mmol/L (136-145) 11/28/23 14:36 Potassium 4.2 mmol/L (3.5-5.1) 11/28/23 14:36 Chloride 105 mmol/L (98-107) 11/28/23 14:36 Carbon Dioxide 23 mmol/L (22-29) 11/28/23 14:36 Anion Gap 18.2 (5-19) 11/28/23 14:36 BUN 44 mg/dL (8-23) H 11/28/23 14:36 Creatinine 1.6 mg/dL (0.7-1.2) H 11/28/23 14:36 GFR Calculation Not Reportable 11/28/23 14:36 Glucose 141 mg/dL (65-115) H 11/28/23 14:36 Calculated Osmolality 308 mOsm/kg (285-295) H 11/28/23 14:36 Lactic Acid 1.9 mmol/L (0.5-2.2) 11/28/23 14:36 Calcium 9.3 mg/dL (8.5-10.5) 11/28/23 14:36 Total Bilirubin 0.9 mg/dL (0.15-1.2) 11/28/23 14:36 AST 20 U/L (0-40) 11/28/23 14:36 ALT 13 U/L (0-41) 11/28/23 14:36 Alkaline Phosphatase 91 U/L (40-130) 11/28/23 14:36 Troponin T Baseline 52 ng/L (0-15) H 11/28/23 14:36 Troponin T 120 Minute 44.69 ng/L (0-15) H 11/28/23 17:00 Delta Troponin T -7.31 ABS# (0-10) L 11/28/23 17:00 NT-Pro-B Natriuret Pep 4093 pg/mL (0-450) H 11/28/23 14:36 Total Protein 7.4 g/dL (6.6-8.7) 11/28/23 14:36 Albumin 4.1 g/dL (3.5-5.2) 11/28/23 14:36 Globulin 3.3 g/dL (1.3-4.6) 11/28/23 14:36 Procalcitonin 0.14 ng/mL (0-0.5) 11/28/23 14:36 TSH 1.54 uIU/mL (0.27-4.20) 11/28/23 17:00 Urine Color Light yellow (Yellow) 11/28/23 19:01 Urine Appearance Clear (CLEAR) 11/28/23 19:01 Urine pH 7 (5-7) 11/28/23 19:01 Ur Specific Lamar 1.010 (1.005-1.030) 11/28/23 19:01 Urine Protein 2+ (Negative) H 11/28/23 19:01 Urine Glucose (UA) Norm (Normal) 11/28/23 19:01 Urine Ketones Negative (Negative) 11/28/23 19: Urine Blood Neg (Negative) 11/28/23 19:01 Urine Nitrate Negative (Negative) 11/28/23 19:01 Urine Bilirubin Neg (Negative) 11/28/23 19:01 Urine Urobilinogen Norm mg/dL (Negative) 11/28/23 19: Ur Leukocyte Esterase Negative (Negative) 11/28/23 19:01 Urine RBC Rare /hpf (0-2) 11/28/23 19:01 Urine WBC Rare /hpf (0-5) 11/28/23 19:01 Ur Squamous Epith Cells 0-4 /hpf (0-5) H 11/28/23 19:01 Amorphous Sediment Not Reportable 11/28/23 19:01 Urine Bacteria None /hpf (NONE) 11/28/23 19:01 Urine Mucus None /hpf 11/28/23 19:01 Discharge Plan Discharge Patient Disposition: Admitted As Inpatient Admit Provider: Margo Curtis Clinical Impression: Hypoxemia, Acute dyspnea, Pulmonary vascular congestion Pneumonia Qualifiers: Pneumonia type: due to unspecified organism Laterality: right Lung location: l ower lobe of lung Qualified Code(s): J18.9 - Pneumonia, unspecified organism Condition: Stable Coding Level of Care Code ED Ethnic Origins Teacher for Chg Fwd Documented by User: Jcarlos Bradley MD 11/28/23 18:26 HPI - SOB/Dyspnea 2 General: Chief Complaint: Shortness of Breath/Dyspnea Stated Complaint: SOB Time Seen by Provider: 11/28/23 14:30 History of Present Illness: HPI Narrative: 78-year-old male presents emergency depa rtment with increased shortness of breath he was seen at the [facility] and they advised him to come to the emergency department. They ultimately called EMS due to concerns of his increased shortness of breath and concerns for EKG changes in their office. Patient presents here with increased work of breathing requiring supplemental oxygen. There was not oxygen weaning trial and the patient's oxygen saturation level decreased to 87 to 88% on room air. He was placed back on 2 L nasal cannula supplemental oxygen. Review of Systems 2 Resp: Reports: dyspnea, non-productive cough and wheezing PFSH ED 2 PFSH: Medical History Pulmonary vascular congestion Embolism and thrombosis of arteries of the lower extremities Peripheral arterial disease History of nonmelanoma skin cancer COPD (chronic obstructive pulmonary disease) Elevated PSA Pulmonary embolism Hypertension Hyperlipidemia Low back pain Retinal ischemia Pulmonary nodule Type 2 diabetes mellitus Vitamin D deficiency Diverticulosis Hiatal hernia Surgical History History of colon resection History of tonsillectomy H/O arthroscopic knee surgery Hx of cataract surgery Family History Other CAD (coronary artery disease) Cancer Diabetes Hyperlipidemia Hypertension Stroke Denies family history of Clotting disorder Dementia Psychiatric illness Chronic kidney disease (CKD) Anesthesia complication Bleeding disorder Family history of premature coronary artery disease Lung disease Social History Smoking and tobacco/nicotine status: former use of tobacco/nicotine Quit status (tobacco/nicotine): has quit using Year quit tobacco: 2010 Former quit date comment: smoked 135 pack years Second hand smoke exposure: No Alcohol intake: current Alcohol intake frequency: holidays/special occasions only Substance/Drug Use: never Physical Exam 2 Narrative: EXAM NARRATIVE: Constitutional: the patient appears well nourished and with normal development. Vital signs reviewed as documented. HENMT: Normocephalic, atraumatic. External ears normal appearance without drainage. Nose without drainage, normal appearance. Mucus membranes moist. Neck is supple, No jugular venous distension, trachea is midline, no appreciable carotid bruits. No lymphadenopathy. No meningeal signs. Flexion, extension and lateral rotation is without pain. Eyes: Pupils are equal, round, reactive to light and accommodation. No scleral icterus. Extra-ocular movement are intact. Thorax is symmetrical and with equal rise and fall with respirations. Resp: Decreased bilaterally in the bases. No wheezes, rales, crackles or ronchi at present. Cardio: Regular rate and rhythm. Positive S1, S2. No appreciable murmurs, rubs or gallops. GI: Abdominal exam reveals normal bowel sounds to all quadrants. No organomegaly. No obvious palpable masses noted. No hepatomegally appreciated. Soft, non-tender to palpation. Extremity: Extremities are non-edematous and both femoral and pedal pulses are 2+ and equal bilaterally. Moves all extremities well, sensation in all extremities. Patient's right great toe is slightly discolored and purple and cool to touch. 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 Neuro: Alert and oriented x4, person, place, time and situation. Motor strength in the upper and lower extremities are equal and bilateral 5/5. Psych: Cooperative, calm, normal thought process, appropriate judgment. Skin: No lesions, rashes. No gross abnormalities noted. Discoloration noted to the right great toe consistent with blue toe syndrome currently receiving anticoagulation treatment. Back: Symmetrical, no obvious deformity, No CVA tenderness Course 2 Vital Signs: Vital signs: Vital Signs Temperature 98.4 F 11/29/23 04:00 Pulse Rate 87 11/29/23 04:00 Respiratory Rate 18 11/29/23 04:00 Blood Pressure 168/63 11/29/23 04:00 Pulse Oximetry 91 11/29/23 04:00 Oxygen Delivery Me thod Nasal Cannula 11/29/23 04:00 Oxygen Flow Rate 2 11/29/23 04:00 MDM - SOB/Dyspnea Medical Decision Making Physical exam completed and documented, reviewed the CBC, CMP chest x-ray which demonstrated concern for vascular congestion and increased work of breathing. Lab Data I reviewed the patient's lab results. 11/29/23 05:17 11/29/23 05:17 Labs/Radiology: Laboratory Results WBC 8.78 10^3/uL (3.29-11.43) 11/28/23 14:36 RBC 4.06 10^6/uL (3.85-5.65) 11/28/23 14:36 Hgb 12.80 g/dL (11.27-16.99) 11/28/23 14:36 Hct 38.5 % (37-53) 11/28/23 14:36 MCV 94.8 fl (82-101) 11/28/23 14:36 MCH 31.5 pg (27-33) 11/28/23 14:36 MCHC 33.2 g/dL (30-55) 11/28/23 14:36 RDW 12.1 % (12.1-15.1) 11/28/23 14:36 Plt Count 210 10^3/cmm (157-399) 11/28/23 14:36 MPV 10.5 fL (7.4-10.4) H 11/28/23 14:36 Neut % (Auto) 56.4 % 11/28/23 14:36 Lymph % (Auto) 15.4 % 11/28/23 14:36 Sioux % (Auto) 20.6 % 11/28/23 14:36 Eos % (Auto) 0.2 % 11/28/23 14:36 Baso % (Auto) 0.1 % 11/28/23 14:36 Neut # (Auto) 4.95 10^3/uL (1.8-7.7) 11/28/23 14:36 Lymph # (Auto) 1.4 10^3/uL (0.8-4.8) 11/28/23 14:36 Sioux # (Auto) 1.8 10^3/uL (0.2-0.9) H 11/28/23 14:36 Eos # (Auto) 0.0 10^3/uL (0.0-0.8) 11/28/23 14:36 Baso # (Auto) 0.0 10^3/uL (0.0-0.1) 11/28/23 14:36 Nucleated RBC % (auto) 0 % 11/28/23 14:36 Nucleated RBCs # 0.0 /100WBC 11/28/23 14:36 D-Dimer 1.24 ug/mLFEU (0-0.59) H 11/28/23 14:36 Sodium 142 mmol/L (136-145) 11/28/23 14:36 Potassium 4.2 mmol/L (3.5-5.1) 11/28/23 14:36 Chloride 105 mmol/L (98-107) 11/28/23 14:36 Carbon Dioxide 23 mmol/L (22-29) 11/28/23 14:36 Anion Gap 18.2 (5-19) 11/28/23 14:36 BUN 44 mg/dL (8-23) H 11/28/23 14:36 Creatinine 1.6 mg/dL (0.7-1.2) H 11/28/23 14:36 GFR Calculation Not Reportable 11/28/23 14:36 Glucose 141 mg/dL (65-115) H 11/28/23 14:36 Calculated Osmolality 308 mOsm/kg (285-295) H 11/28/23 14:36 Lactic Acid 1.9 mmol/L (0.5-2.2) 11/28/23 14:36 Calcium 9.3 mg/dL (8.5-10.5) 11/28/23 14:36 Total Bilirubin 0.9 mg/dL (0.15-1.2) 11/28/23 14:36 AST 20 U/L (0-40) 11/28/23 14:36 ALT 13 U/L (0-41) 11/28/23 14:36 Alkaline Phosphatase 91 U/L (40-130) 11/28/23 14:36 Troponin T Baseline 52 ng/L (0-15) H 11/28/23 14:36 Troponin T 120 Minute 44.69 ng/L (0-15) H 11/28/23 17:00 Delta Troponin T -7.31 ABS# (0-10) L 11/28/23 17:00 NT-Pro-B Natriuret Pep 4093 pg/mL (0-450) H 11/28/23 14:36 Total Protein 7.4 g/dL (6.6-8.7) 11/28/23 14:36 Albumin 4.1 g/dL (3.5-5.2) 11/28/23 14:36 Globulin 3.3 g/dL (1.3-4.6) 11/28/23 14:36 Procalcitonin 0.14 ng/mL (0-0.5) 11/28/23 14:36 TSH 1.54 uIU/mL (0.27-4.20) 11/28/23 17:00 Urine Color Light yellow (Yellow) 11/28/23 19: Urine Appearance Clear (CLEAR) 11/28/23 19:01 Urine pH 7 (5-7) 11/28/23 19:01 Ur Specific Lamar 1.010 (1.005-1.030) 11/28/23 19:01 Urine Protein 2+ (Negative) H 11/28/23 19:01 Urine Glucose (UA) Norm (Normal) 11/28/23 19:01 Urine Ketones Negative (Negative) 11/28/23 19:01 Urine Blood Neg (Negative) 11/28/23 19:01 Urine Nitrate Negative (Negative) 11/28/23 19: Urine Bilirubin Neg (Negative) 11/28/23 19:01 Urine Urobilinogen Norm mg/dL (Negative) 11/28/23 19:01 Ur Leukocyte Esterase Negative (Negative) 11/28/23 19:01 Urine RBC Rare /hpf (0-2) 11/28/23 19:01 Urine WBC Rare /hpf (0-5) 11/28/23 19:01 Ur Squamous Epith Cells 0-4 /hpf (0-5) H 11/28/23 19:01 Amorphous Sediment Not Reportable 11/28/23 19:01 Urine Bacteria None /hpf (NONE) 11/28/23 19:01 Urine Mucus None /hpf 11/28/23 19:01 All radiology interpretation(s) finalized by discharge Discharge Plan Discharge Patient Disposition: Admitted As Inpatient Admit Provider: Margo Curtis Clinical Impression: Hypoxemia, Acute dyspnea, Pulmonary vascular congestion Pneumonia Qualifiers: Pneumonia type: due to unspecified organism Laterality: right Lung location: l ower lobe of lung Qualified Code(s): J18.9 - Pneumonia, unspecified organism Condition: Stable Coding Level of Care Code ED Ethnic Origins Teacher for Vicki Jackson
[2023-11-28 14:57] LABS: Basophils % 0.1 %; Eosinophils % 0.2 %; Hematocrit 38.5 % (37-53); Lymphocytes # 1.4 10^3/uL (0.8-4.8); Lymphocytes % 15.4 %; Mean Corpuscular HGB Conc 33.2 g/dL (30-55); Mean Corpuscular Hemoglobin 31.5 pg (27-33); Mean Corpuscular Volume 94.8 fl (82-101); Mean Platelet Volume 10.5 fL (7.4-10.4); Monocytes # 1.8 10^3/uL (0.2-0.9); Monocytes % 20.6 %; Neutrophils # 4.95 10^3/uL (1.8-7.7); Neutrophils % 56.4 %; Nucleated Red Blood Cells % 0 %; Platelet Count 210 10^3/cmm (157-399); Red Blood Count 4.06 10^6/uL (3.85-5.65); Red Cell Distribution Width 12.1 % (12.1-15.1); White Blood Count 8.78 10^3/uL (3.29-11.43)
[2023-11-28] MEDS: sodium chloride 0.9% 500 ML 999 ML IV (15:15)
[2023-11-28 15:21] LABS: Alanine Aminotransferase 13 U/L (0-41); Albumin Level 4.1 g/dL (3.5-5.2); Alkaline Phosphatase 91 U/L (40-130); Anion Gap 18.2 (5-19); Aspartate Amino Transferase 20 U/L (0-40); Blood Urea Nitrogen 44 mg/dL (8-23); Calcium 9.3 mg/dL (8.5-10.5); Carbon Dioxide 23 mmol/L (22-29); Chloride 105 mmol/L (98-107); Creatinine Clr Calc Pharmacy 37.1531; Globulin 3.3 g/dL (1.3-4.6); Glucose 141 mg/dL (65-115); Osmolality Calculated 308 mOsm/kg (285-295); Potassium 4.2 mmol/L (3.5-5.1); Sodium 142 mmol/L (136-145); Total Bilirubin 0.9 mg/dL (0.15-1.2); Total Protein 7.4 g/dL (6.6-8.7)
[2023-11-28 15:26] LABS: Slide Review Slide Review Perform
[2023-11-28 15:35] LABS: Troponin(5th) Baseline 52 ng/L (0-15)
[2023-11-28 17:47] LABS: Troponin 5 2HR 44.69 ng/L (0-15)
[2023-11-28 17:50] LABS: Troponin 5 2HR Delta -7.31 ABS# (0-10)
--- NOTE | 2023-11-28 18:23 | ECG_ITS ---
[facility] Test Date: 2023-11-28 Pat Name: Art Hollins Department: Room: Gender: Male Black Belt: : 1945 Requested By: Serge Santa Order Number: [id number] Jonathan MD: Raheel Guillen M.D. Measurements Intervals [place] Rate: 97 P: 46 GA: 125 QRS: 88 QRSD: 93 T: 28 QT: 348 QTc: 444 Interpretive Statements SINUS RHYTHM WITH FREQUENT VENTRICULAR PREMATURE COMPLEXES MODERATE T-WAVE ABNORMALITY, CONSIDER ANTERIOR ISCHEMIA [-0.1+ mV T-WAVE IN V3/V4] Compared to ECG 03/07/2023 14:26:31 Ventricular premature complex(es) now present Possible ischemia now present T-wave abnormality still present Electronically Signed On 11-28-2023 21:37:24 CDT by Raheel Guillen M.D. [id number]
[2023-11-28] MEDS: cefTRIAXone 2,000 MG in sodium chloride 0.9% (plus) 50 ML 100 MG IV (18:32)
[2023-11-28 18:56] LABS: Lactic Sepsis W/Reflex 1.9 mmol/L (0.5-2.2)
[2023-11-28 19:25] LABS: NT Pro B Type Natriuretic Pept 4093 pg/mL (0-450); Procalcitonin 0.14 ng/mL (0-0.5)
[2023-11-28 19:35] LABS: Urine Color Light yellow (Yellow)
[2023-11-28 19:36] LABS: Add Urine Microscopic? YES; Bilirubin Urine Neg (Negative); Blood Urine Neg (Negative); Glucose Urine UA Norm (Normal); Ketones Urine Negative (Negative); Leukocyte Esterase Urine Negative (Negative); Nitrate Urine Negative (Negative); Protein Urine 2+ (Negative); Urine Appearance Clear (CLEAR); Urobilinogen Urine Norm (Negative); pH Urine 7 (5-7)
[2023-11-28 19:44] LABS: Add Urine Culture? No; RBC Urine RARE /hpf (0-2); Squamous Epithelial Cell Urine 0-4 /hpf (0-5); WBC Urine RARE /hpf (0-5)
--- NOTE | 2023-11-28 20:23 | P.HP_ITS ---
Providers/Chief Complaint 2 Admitting Physician: Margo Curtis MD Primary Care Provider: JAMES Penn Chief Complaint: SOB History of Present Illness Art Hollins is a 78 year old male with previous history of subclavian steal syndrome, peripheral vascular disease, atherosclerotic disease, right upper lobe granuloma/hematoma, blue toe syndrome, presented to hospital with chief complaint of worsening shortness of breath. Patient stating that for last few days he has been experiencing orthopnea PND and shortness of breath, he has not noticed any significant diarrhea, vomiting or nausea but endorsing low-grade fever 99.7, no sick contacts. Patient has follow-up with Dr. Brown for his blue toe syndrome, Dr. Brown has started him on Eliquis, there is plan to do an angiogram in the future once creatinine is better he carries history of chronic kidney stage III. In the ER he has been diagnosed with pneumonia and congestive heart failure. Currently not on oxygen He was complaining of right toe pain, paresthesias on clinical exam PVCs with sinus rhythm, D-dimer is high, troponin trending down BNP is high Review of Systems 2 Const: Denies: fever(s) Eyes: Denies: change in vision ENMT: Denies: throat pain Card: Reports: swelling of feet/ankles Resp: Reports: dyspnea and non-productive cough GI: Denies: abdominal pain : Denies: flank pain Musc: Denies: neck pain Skin/Breast: Denies: rash Medications/Allergies Home Medications Medication Instructions Recorded Confirmed Last Taken Type acetaminophen 500 mg tablet 500 mg PO Q6H PRN Pain 12/08/20 11/28/23 Unknown History (Tylenol Extra Strength) cholecalciferol (vitamin D3) 50 50 mcg PO DAILY 12/08/20 11/28/23 03/06/23 History mcg (2,000 unit) capsule [id number] 300 mcg-K 60 1 tab PO DAILY 07/08/21 11/28/23 03/06/23 History mcg-lycop 600 mcg-lutein 300 mcg tablet (Centrum Silver Ultra Men's) tramadol 50 mg tablet 50 mg PO DAILY PRN Pain 10/18/21 11/28/23 Unknown History atorvastatin 80 mg tablet 80 mg PO DAILY #90 tabs 04/20/22 11/28/23 03/06/23 Rx psyllium husk 3.4 gram/5.4 gram 1 tbsp PO BID 01/18/23 11/28/23 03/06/23 History oral powder (Metamucil) nifedipine 30 mg tablet,extended See Rx Instructions .Route .COMPLEX 02/27/23 11/28/23 03/06/23 History release apixaban 5 mg tablet 5 mg PO BID 11/21/23 11/28/23 Unknown History chlorthalidone 25 mg tablet 25 mg PO DAILY #90 tabs 11/21/23 11/28/23 Unknown Rx tamsulosin 0.4 mg capsule 0.8 mg PO BEDTIME 11/21/23 11/28/23 Unknown History furosemide 20 mg tablet 20 mg PO DAILY 11/28/23 11/28/23 Unknown History naloxone 0.4 mg/mL injection 0.4 mg SUBCUT Q2M PRN OVERDOSE 11/28/23 11/28/23 Unknown History solution oxycodone-acetaminophen 5 mg-325 1 tab PO Q4H PRN Pain 11/28/23 11/28/23 Unknown History mg tablet Allergies Allergy/AdvReac Type Severity Reaction Status Date / Time ibuprofen Allergy Intermediate ALGY-Joint Verified 11/21/23 11:40 Pain gemfibrozil Allergy Unknown Unknown Verified 11/21/23 11:40 metformin AdvReac Mild ADR-Dizzine Verified 11/21/23 11:40 ss amlodipine AdvReac Unknown hair loss Verified 11/21/23 11:40 fish oil AdvReac Unknown indigestion Verified 11/21/23 11:40 loratadine [From Claritin] AdvReac Unknown woozy Verified 11/21/23 11:40 PFSH Acute 2 PFSH: Medical History (Updated 11/28/23 @ 22:39 by Abdon Beauchamp MD) Pulmonary vascular congestion Embolism and thrombosis of arteries of the lower extremities Peripheral arterial disease History of nonmelanoma skin cancer COPD (chronic obstructive pulmonary disease) Elevated PSA Pulmonary embolism Hypertension Hyperlipidemia Low back pain Retinal ischemia Pulmonary nodule Type 2 diabetes mellitus Vitamin D deficiency Diverticulosis Hiatal hernia Surgical History History of colon resection History of tonsillectomy H/O arthroscopic knee surgery Hx of cataract surgery Family History Other CAD (coronary artery disease) Cancer Diabetes Hyperlipidemia Hypertension Stroke Denies family history of Clotting disorder Dementia Psychiatric illness Chronic kidney disease (CKD) Anesthesia complication Bleeding disorder Family history of premature coronary artery disease Lung disease Social History Smoking and tobacco/nicotine status: former use of tobacco/nicotine Quit status (tobacco/nicotine): has quit using Year quit tobacco: 2010 Former quit date comment: smoked 135 pack years Second hand smoke exposure: No Alcohol intake: current Alcohol intake frequency: holidays/special occasions only Substance/Drug Use: never Vitals/I&O/Wt Last Vital Signs Temp 98.4 F 11/28/23 14:37 Pulse 95 11/28/23 19:39 Resp 18 11/28/23 19:39 BP 172/95 11/28/23 19:39 Pulse Ox 95 11/28/23 19:39 O2 Del Method Room Air 11/28/23 15:04 11/28/23 11/28/23 11/28/23 06:59 14:59 22:59 Intake Total 550 / 550 Balance 550 / 550 Weight last 48 hrs Weight 68.039 kg Physical Exam 2 Narrative: Patient is awake and alert Laying supine Currently on room air On active chest pain Son at the bedside No sign of ischemic ulcer right foot Paresthesia Trace edema Pleasant cooperative Currently on room air S1, S2 Legs are warm to touch bilaterally Data 11/28/23 14:36 11/28/23 14:36 Micro: Microbiology 11/28/23 18:40 Blood Culture - Preliminary Blood SPECIMEN COLLECTED 11/28/23 18:40 Blood Culture - Preliminary Blood SPECIMEN COLLECTED A&P Assessment and plan (1) Hypertension: Qualifiers: Hypertension type: essential hypertension Qualified Code(s): I10 - Essential (primary) hypertension (2) Left subclavian artery occlusion: (3) Peripheral arterial disease: (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: (5) Type 2 diabetes mellitus: Qualifiers: Diabetes mellitus ad terminal makeup operator insulin use: without mcfp use Diabetes mellitus complication status: without complication Qualified Code(s): E11.9 - Type 2 diabetes mellitus without complications (6) Hyperdense renal cyst: (7) Pneumonia: Qualifiers: Laterality: right Lung location: lower lobe of lung Pneumonia type: d ue to unspecified organism Qualified Code(s): J18.9 - Pneumonia, unspecified organism (8) Pulmonary vascular congestion: (9) Acute worsening of stage 3 chronic kidney disease: Plan Community-acquired pneumonia Started ceftriaxone and azithromycin Currently not requiring oxygen Patient endorsing low-grade fever at home 99.7 No signs of confusion, no fever or sepsis Acute preserved ejection fraction CHF exacerbation Continue IV diuresis Patient looks mildly fluid overloaded Blue toe syndrome Has seen Dr. Brown in the past who has started him on anticoagulating agent Eliquis Plan for aorta with runoff once creatinine is stable no Ischemic ulcers No acute indication for vascular intervention Acute on chronic kidney disease stage III Mild exacerbation related to cardiorenal syndrome Anticipate improvement with diuresis Patient lives at home Fairly active for his age Full code Cardiac diet/ Attestations 2 Medical Necessity Statement*: More than 2 midnights anticipated for management of blue toe syndrome, mild CHF, pneumonia, acute on chronic kidney disease Diagnoses Essential hypertension I10 Hypertension type: essential hypertension Left subclavian artery occlusion I70.8 Peripheral arterial disease I73.9 Embolism and thrombosis of arteries of the lower extremities I74.3 Type 2 diabetes mellitus without complication, without long-term current use of insulin E11.9 Diabetes mellitus ad terminal makeup operator insulin use: without ad terminal makeup operator use Diabetes mellitus complication status: without complication Hyperdense renal cyst N28.1 Pneumonia J18.9 Laterality: right Lung location: lower lobe of lung Pneumonia type: due to unspecified organism Pulmonary vascular congestion R09.89 Acute worsening of stage 3 chronic kidney disease N18.30
--- NOTE | 2023-11-28 20:41 | USCV_ITS ---
GunjanArt pichardo Age: 78 Gender: M : 1945 Exam Date: 11/28/2023 22:04 Ordering Phys: Abdon Beauchamp MD Technologist: KARIE [place] [facility] [place]: order says chf History of COPD. No history of cardiac intervention per patient. BP: 170 / 73 HR: 94 Rhythm: Sinus Technical Quality: suboptimal secondary to COPD MEASUREMENTS (Male / Female) Normal Values 2D ECHO LV Diastolic Diameter PLAX 3.8 cm 4.2 - 5.9 / 3.9 - 5.3 cm IVS Diastolic Thickness 1.4 cm 0.6 - 1.0 / 0.6 - 0.9 cm IVS Systolic Thickness 1.4 cm LVPW Diastolic Thickness 1.1 cm 0.6 - 1.0 / 0.6 - 0.9 cm LVPW Systolic Thickness 1.3 cm LVOT Diameter 1.6 cm LV Ejection Fraction 2D Teich 71.0 % LA Diameter 4.6 cm Aorta at Sinotubular Diameter 3.1 cm IVC Diameter 1.6 cm M-MODE LA Ao Ratio MM 0.8 AV Cusp Separation MM 1.8 cm DOPPLER AV Peak Velocity 162.0 cm/s LVOT Peak Velocity 152.0 cm/s AV Area Cont Eq vti 2.1 cm squared AV Area Cont Eq pk 1.9 cm squared MV Peak Velocity 133.0 cm/s MV Area PHT 3.3 cm squared Mitral E to A Ratio 1.1 FINDINGS Left Ventricle Left ventricle is normal size. LV systolic function is normal with EF of 55 to 60%. No regional wall motion abnormalities are seen. Right Ventricle Normal in size and function Right Atrium Normal in size Left Atrium Normal in size Mitral Valve Mild mitral annular calcification. Mild mitral regurgitation. Aortic Valve Structurally normal aortic valve.No significant stenosis or regurgitation. Tricuspid Valve Mild tricuspid regurgitation. Insufficient TR jet to calculate RVSP Pulmonic Valve Not well visualized Pericardium Normal Aorta Normal in size IVC Appears to be normal CONCLUSIONS LV systolic function is normal with EF of 55-60% Mild mitral regurgitation Mild tricuspid regurgitation Compared to prior echocardiogram from 2020, no significant changes are seen Raheel Guillen MD (Electronically Signed) Final Date: 29 November 2023 12:16 S
[2023-11-28 20:57] LABS: D Dimer 1.24 ug/mLFEU (0-0.59)
[2023-11-28 21:24] LABS: Thyroid Stimulating Hormone 1.54 uIU/mL (0.27-4.20)
[2023-11-28 21:38] LABS: Troponin 5 6HR 44.72 ng/L (0-15)
[2023-11-28 21:39] LABS: Troponin 5 6HR Delta -7.28 ng/L (0-12)
[2023-11-28] MEDS: oxyCODONE-APAP 5-325 mg Tablet 1 TAB PO (22:33)
[2023-11-28] MEDS: FUROsemide 10 mg/mL SDV 10mL 60 MG IVP (22:34)
[2023-11-29] VITALS (12 sets, daily range): BP systolic 153–181; BP diastolic 53–63; PULSE 69–87; RESP 16–18; TEMP 36.4–36.9; O2SAT 91–96
[2023-11-29] MEDS: oxyCODONE-APAP 5-325 mg Tablet 1 TAB PO ×5 (02:40→22:22)
[2023-11-29] MEDS: acetaminophen 500 mg Tablet PO (03:55)
[2023-11-29 05:39] LABS: Basophils % 0.2 %; Eosinophils # 0.1 10^3/uL (0.0-0.8); Eosinophils % 0.8 %; Lymphocytes # 1.5 10^3/uL (0.8-4.8); Lymphocytes % 18.5 %; Mean Corpuscular HGB Conc 33.4 g/dL (30-55); Mean Corpuscular Hemoglobin 31.3 pg (27-33); Mean Corpuscular Volume 93.6 fl (82-101); Mean Platelet Volume 10.3 fL (7.4-10.4); Monocytes % 23.4 %; Neutrophils # 4.29 10^3/uL (1.8-7.7); Neutrophils % 51.6 %; Nucleated Red Blood Cells % 0 %; Platelet Count 199 10^3/cmm (157-399); Red Blood Count 3.74 10^6/uL (3.85-5.65); Red Cell Distribution Width 11.9 % (12.1-15.1); White Blood Count 8.33 10^3/uL (3.29-11.43)
[2023-11-29 06:10] LABS: Anion Gap 14.5 (5-19); Blood Urea Nitrogen 40 mg/dL (8-23); C Reactive Protein 103.6 mg/L (0.0-4.9); Carbon Dioxide 24 mmol/L (22-29); Chloride 106 mmol/L (98-107); Glucose 120 mg/dL (65-115); Magnesium 2.3 mg/dL (1.7-2.3); Osmolality Calculated 303 mOsm/kg (285-295); Phosphorus 4.1 mg/dL (2.5-4.5); Potassium 3.5 mmol/L (3.5-5.1); Sodium 141 mmol/L (136-145)
[2023-11-29 06:14] LABS: Creatine Phosphokinase 169 U/L (39-308)
[2023-11-29 06:15] LABS: Creatinine Clr Calc Pharmacy 41.0814
[2023-11-29 06:25] LABS: Slide Review Slide Review Perform
[2023-11-29] MEDS: atorvastatin 40 mg Tablet 80 MG PO (08:55)
[2023-11-29] MEDS: FUROsemide 10 mg/mL SDV 4mL 40 MG IVP (08:55)
[2023-11-29] MEDS: azithromycin 250 mg Tablet 500 MG PO (08:55)
[2023-11-29] MEDS: apixaban 5 mg Tablet PO ×2 (08:55→18:21)
[2023-11-29] MEDS: sennosides-docusate Tablet 1 TAB PO (08:56)
[2023-11-29] MEDS: chlorthalidone 25 mg Tablet PO (08:56)
[2023-11-29] MEDS: cefTRIAXone 1,000 MG in sodium chloride 0.9% (plus) 50 ML 100 MG IV (08:56)
--- NOTE | 2023-11-29 09:38 | USCV_ITS ---
GunjanArt Age: 78 Gender: M : 1945 Exam Date: 11/29/2023 10:46 Ordering Phys: Geronimo Curtis MD Technologist: PARAS [place] [facility] [place]: Blue Toe Rt Foot Risk Factors: Previous Vascular Surgery: RIGHT LEFT BP: 174.0 / 58.00 BP: 110.0/ 67.00 0 0 Waveform Velocity (cm/s) Velocity (cm/s) Waveform Triphasic 94.3 Iliac Prox 159.2 Biphasic Triphasic 77.3 Iliac Mid 172.5 Biphasic Triphasic Iliac Distal Biphasic 107.8 174.1 Triphasic 107.0 CAR ESCORT 221.0 Biphasic Monophasic 80.0 SFA Prox 141.0 Biphasic Monophasic 67.0 SFA Mid 114.0 Biphasic Monophasic 63.0 SFA Dist 81.0 Biphasic Monophasic 38.0 POP 102.0 Biphasic Monophasic 62.0 DECORATOR INSPECTOR 138.0 Biphasic Monophasic 25.0 DPA 102.0 Biphasic 0.4 ROBYN 1.0 FINDINGS Pt states he has a Lt subclavian steal and his lt arm pressure is always lower than right Resting ROBYN 0.4 on the right side and 1.0 on the left side Mild to moderate diffuse plaque in the iliac and femoral artery Clinically low Doppler flow velocities on the right side CONCLUSIONS 1. Abnormal resting ROBYN of 0.4 on the right side, suggestive of severe obstructive arterial disease, possibly at the aortoiliac level 2. Mild to moderate diffuse plaques in the iliac and femoral arteries bilaterally 3. Patent iliac, femoral, popliteal and inferolateral infrapopliteal vessels bilaterally 4. Normal resting ROBYN on the left side, suggesting no significant arterial obstruction. No similar previous studies are available for comparison Dr Ashu Dukes MD [facility] (Electronically Signed) Final Date: 01 December 2023 13:13 S
[2023-11-29 10:59] LABS: Adenovirus Not Detected (NOT DETECT); Chlamydia Pneumoniae Not Detected (NOT DETECT); Coronavirus 229E,HKU1,NL63,OC4 Not Detected (NOT DETECT); Human Metapneumovirus Not Detected (NOT DETECT); Human Rhinovirus/Enterovirus Not Detected (NOT DETECT); Influenza A Not Detected (NOT DETECT); Influenza A H1 Not Detected (NOT DETECT); Influenza A H1-2009 Not Detected (NOT DETECT); Influenza A H3 Not Detected (NOT DETECT); Influenza B Not Detected (NOT DETECT); Mycoplasma Pneumoniae Not Detected (NOT DETECT); Parainfluenza Virus Type 1 Not Detected (NOT DETECT); Parainfluenza Virus Type 2 Not Detected (NOT DETECT); Parainfluenza Virus Type 3 Not Detected (NOT DETECT); Parainfluenza Virus Type 4 Not Detected (NOT DETECT); Respiratory Syncytial Virus A Not Detected (NOT DETECT); Respiratory Syncytial Virus B Not Detected (NOT DETECT); SARS-COV-2 Not Detected (NOT DETECT)
--- NOTE | 2023-11-29 14:08 | PM.PN ---
Subjective Subjective: patient was seen this morning, he reports cough and shortness of breath, complains of severe pain in his right great toe, site of blue toe syndrome, no chest pain Vitals/I&O/Wt Last Vital Signs Temp 97.6 F 11/29/23 11:19 Pulse 69 11/29/23 11:19 Resp 16 11/29/23 13:49 BP 178/55 11/29/23 11:19 Pulse Ox 93 11/29/23 13:49 O2 Del Method Nasal Cannula 11/29/23 11:19 O2 Flow Rate 2 11/29/23 04:00 11/28/23 11/29/23 11/29/23 22:59 06:59 14:59 Intake Total 550 / 550 300 / 850 960 / 960 Output Total 400 / 400 2075 / 2475 1350 / 1350 Balance 150 / 150 -1775 / -1625 -390 / -390 Weight last 48 hrs Weight 74.162 kg Weight 75.013 kg Weight 68.039 kg Physical Exam Const: COMMON NORMALS: no acute distress and patient oriented x3 Resp: COMMON NORMALS: normal respiratory effort, No retractions, No use of accessory muscles and clear to auscultation bilaterally AUSCULTATION: clear to auscultation bilaterally Cardio: COMMON NORMALS: regular rate, regular rhythm, S1 normal heart sound present and S2 normal heart sound present RATE: regular rate RHYTHM: regular rhythm HEART SOUNDS: S1 normal heart sound present and S2 normal heart sound present GI: COMMON NORMALS: Normal to inspection, nondistended, normoactive bowel sounds present and non-tender Extremity: COMMON NORMALS: no pedal edema Neuro: COMMON NORMALS: patient oriented x3 Psych: COMMON NORMALS: mental status grossly normal Skin: NARRATIVE SKIN EXAM: right foot great toe, has blue hue, Data 11/29/23 05:17 11/29/23 05:17 Micro: Microbiology 11/28/23 18:40 Blood Culture - Preliminary Blood SPECIMEN COLLECTED 11/28/23 18:40 Blood Culture - Preliminary Blood SPECIMEN COLLECTED A&P Assessment and plan (1) Hypertension: Qualifiers: Hypertension type: essential hypertension Qualified Code(s): I10 - Essential (primary) hypertension (2) Left subclavian artery occlusion: (3) Peripheral arterial disease: (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: (5) Type 2 diabetes mellitus: Qualifiers: Diabetes mellitus retirement insulin use: without coke still cleaner use Diabetes mellitus complication status: without complication Qualified Code(s): E11.9 - Type 2 diabetes mellitus without complications (6) Hyperdense renal cyst: (7) Pneumonia: Qualifiers: Laterality: right Lung location: lower lobe of lung Pneumonia type: due to unspecified organism Qualified Code(s): J18.9 - Pneumonia, unspecified organism (8) Pulmonary vascular congestion: (9) Acute worsening of stage 3 chronic kidney disease: Plan Community-acquired pneumonia Started ceftriaxone and azithromycin Currently not requiring oxygen Patient endorsing low-grade fever at home 99.7 No signs of confusion, no fever or sepsis Acute preserved ejection fraction CHF exacerbation Continue IV diuresis Patient looks mildly fluid overloaded Blue toe syndrome Has seen Dr. Brown in the past who has started him on anticoagulating agent Eliquis Plan for aorta with runoff once creatinine is stable, will order arterial studies no Ischemic ulcers No acute indication for vascular intervention Acute on chronic kidney disease stage III Mild exacerbation related to cardiorenal syndrome Anticipate improvement with diuresis Patient lives at home Fairly active for his age Full code Cardiac diet/ Attestations Medical Necessity Statement*: patient requires hospitalization for PNA, fluid overload, blue toe syndrome Diagnoses Essential hypertension I10 Hypertension type: essential hypertension Left subclavian artery occlusion I70.8 Peripheral arterial disease I73.9 Embolism and thrombosis of arteries of the lower extremities I74.3 Type 2 diabetes mellitus without complication, without long-term current use of insulin E11.9 Diabetes mellitus coke still cleaner insulin use: without coke still cleaner use Diabetes mellitus complication status: without complication Hyperdense renal cyst N28.1 Pneumonia J18.9 Laterality: right Lung location: lower lobe of lung Pneumonia type: due to unspecified organism Pulmonary vascular congestion R09.89 Acute worsening of stage 3 chronic kidney disease N18.30
[2023-11-29] MEDS: tamsulosin 0.4 mg Capsule 0.800000000000000044 MG PO (20:32)
[2023-11-29] MEDS: hyDRALAzine 20 mg/mL INJ 1 mL 5 MG IVP (23:46)
[2023-11-29] MEDS: TRAMadol 50 mg Tablet PO (23:47)
[2023-11-30] VITALS (14 sets, daily range): BP systolic 135–175; BP diastolic 52–57; PULSE 65–82; RESP 16–20; TEMP 36.3–37.2; O2SAT 91–98
[2023-11-30] MEDS: oxyCODONE-APAP 5-325 mg Tablet 1 TAB PO ×4 (02:53→18:27)
[2023-11-30] MEDS: morphine 4 mg/mL SDV 1 mL 2 MG IVP (04:51)
[2023-11-30 05:56] LABS: Mean Corpuscular HGB Conc 32.9 g/dL (30-55); Mean Corpuscular Volume 94.2 fl (82-101); Platelet Count 208 10^3/cmm (157-399); Red Blood Count 3.61 10^6/uL (3.85-5.65); Red Cell Distribution Width 11.5 % (12.1-15.1); White Blood Count 7.07 10^3/uL (3.29-11.43)
[2023-11-30 06:14] LABS: Alanine Aminotransferase 12 U/L (0-41); Albumin Level 3.2 g/dL (3.5-5.2); Alkaline Phosphatase 76 U/L (40-130); Anion Gap 16.5 (5-19); Aspartate Amino Transferase 20 U/L (0-40); Blood Urea Nitrogen 46 mg/dL (8-23); Calcium 8.4 mg/dL (8.5-10.5); Carbon Dioxide 24 mmol/L (22-29); Chloride 101 mmol/L (98-107); Creatinine Clr Calc Pharmacy 34.3241; Globulin 2.9 g/dL (1.3-4.6); Glucose 153 mg/dL (65-115); Magnesium 2.2 mg/dL (1.7-2.3); Osmolality Calculated 301 mOsm/kg (285-295); Potassium 3.5 mmol/L (3.5-5.1); Sodium 138 mmol/L (136-145); Total Bilirubin 0.5 mg/dL (0.15-1.2); Total Protein 6.1 g/dL (6.6-8.7)
[2023-11-30 06:28] LABS: Slide Review Slide Review Perform
[2023-11-30 06:29] LABS: Absolute Eosinophils 0.1 10^3/cmm (0.0-0.7); Eosinophils 2 %; Lymphocytes 23 %; Monocytes Absolute 0.9 10^3/cmm (0.1-0.6); Platelet Estimate Normal (Normal); Segmented Neutrophils 57 %; Total Cells Counted 100 (0-100)
[2023-11-30] MEDS: azithromycin 250 mg Tablet 500 MG PO (08:48)
[2023-11-30] MEDS: chlorthalidone 25 mg Tablet PO (08:48)
[2023-11-30] MEDS: atorvastatin 40 mg Tablet 80 MG PO (08:48)
[2023-11-30] MEDS: cefTRIAXone 1,000 MG in sodium chloride 0.9% (plus) 50 ML 100 MG IV (08:49)
[2023-11-30] MEDS: apixaban 5 mg Tablet PO ×2 (08:49→18:09)
[2023-11-30] MEDS: morphine 4 mg/mL SDV 1 mL 1 MG IVP ×2 (12:45→22:08)
--- NOTE | 2023-11-30 13:56 | P.PN_ITS ---
Subjective 2 Subjective: Patient was seen this morning, no chest pain, his shortness of breath is improving, he continues to complain of pain in his toe, but improving, Vitals/I&O/Wt Last Vital Signs Temp 97.6 F 11/30/23 11:27 Pulse 68 11/30/23 11:27 Resp 18 11/30/23 12:45 BP 160/56 11/30/23 11:27 Pulse Ox 91 11/30/23 12:45 O2 Del Method Room Air 11/30/23 11:27 O2 Flow Rate 2 11/29/23 08:00 11/29/23 11/30/23 11/30/23 22:59 06:59 14:59 Intake Total 730 / 1690 400 / 2090 50 / 50 Output Total 200 / 1550 300 / 1850 Balance 530 / 140 100 / 240 50 / 50 Weight last 48 hrs Weight 74.616 kg Weight 74.162 kg Weight 75.013 kg Weight 68.039 kg Physical Exam 2 Const: COMMON NORMALS: no acute distress and patient oriented x3 Resp: COMMON NORMALS: normal respiratory effort, No retractions, No use of accessory muscles and clear to auscultation bilaterally AUSCULTATION: clear to auscultation bilaterally Cardio: COMMON NORMALS: regular rate, regular rhythm, S1 normal heart sound present and S2 normal heart sound present RATE: regular rate RHYTHM: r egular rhythm HEART SOUNDS: S1 normal heart sound present and S2 normal heart sound present GI: COMMON NORMALS: Normal to inspection, nondistended, normoactive bowel sounds present and non-tender Extremity: COMMON NORMALS: no pedal edema NARRATIVE EXTREMITY EXAM: Good DP PT pulses bilaterally Neuro: COMMON NORMALS: patient oriented x3 Psych: COMMON NORMALS: mental status grossly normal Data 11/30/23 05:40 11/30/23 05:40 Micro: Microbiology 11/28/23 18:40 Blood Culture - Preliminary Blood NEGATIVE TO DATE 11/28/23 18:40 Blood Culture - Preliminary Blood NEGATIVE TO DATE A&P Assessment and plan (1) Hypertension: Qualifiers: Hypertension type: essential hypertension Qualified Code(s): I10 - Essential (primary) hypertension (2) Left subclavian artery occlusion: (3) Peripheral arterial disease: (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: (5) Type 2 diabetes mellitus: Qualifiers: Diabetes mellitus exterminator helper termite insulin use: without exterminator helper termite use Diabetes mellitus complication status: without complication Qualified Code(s): E11.9 - Type 2 diabetes mellitus without complications (6) Hyperdense renal cyst: (7) Pneumonia: Qualifiers: Laterality: right Lung location: lower lobe of lung Pneumonia type: d ue to unspecified organism Qualified Code(s): J18.9 - Pneumonia, unspecified organism (8) Pulmonary vascular congestion: (9) Acute worsening of stage 3 chronic kidney disease: Plan Community-acquired pneumonia Started ceftriaxone and azithromycin Currently not requiring oxygen Patient endorsing low-grade fever at home 99.7 No signs of confusion, no fever or sepsis Acute preserved ejection fraction CHF exacerbation Elevated creatinine, hold diuresis for today Patient looks mildly fluid overloaded Blue toe syndrome Has seen Dr. Brown in the past who has started him on anticoagulating agent Eliquis Plan for aorta with runoff once creatinine is stable, will order arterial studies Good DP and PT pulses bilaterally no Ischemic ulcers No acute indication for vascular intervention Acute on chronic kidney disease stage III Mild exacerbation related to cardiorenal syndrome Anticipate improvement with diuresis Patient lives at home Fairly active for his age Full code Cardiac diet/ Attestations 2 Medical Necessity Statement*: Patient requires hospitalization for community-acquired pneumonia, Diagnoses Essential hypertension I10 Hypertension type: essential hypertension Left subclavian artery occlusion I70.8 Peripheral arterial disease I73.9 Embolism and thrombosis of arteries of the lower extremities I74.3 Type 2 diabetes mellitus without complication, without long-term current use of insulin E11.9 Diabetes mellitus exterminator helper termite insulin use: without exterminator helper termite use Diabetes mellitus complication status: without complication Hyperdense renal cyst N28.1 Pneumonia J18.9 Laterality: right Lung location: lower lobe of lung Pneumonia type: due to unspecified organism Pulmonary vascular congestion R09.89 Acute worsening of stage 3 chronic kidney disease N18.30
[2023-11-30] MEDS: tamsulosin 0.4 mg Capsule 0.800000000000000044 MG PO (20:36)
[2023-12-01] VITALS (11 sets, daily range): BP systolic 149–176; BP diastolic 52–65; PULSE 73–96; RESP 16–18; TEMP 36.4–37.1; O2SAT 91–96
[2023-12-01] MEDS: oxyCODONE-APAP 5-325 mg Tablet 1 TAB PO ×2 (00:04→04:18)
[2023-12-01 05:49] LABS: Basophils % 0.2 %; Eosinophils # 0.1 10^3/uL (0.0-0.8); Hematocrit 32.6 % (37-53); Lymphocytes % 21.9 %; Mean Corpuscular HGB Conc 33.4 g/dL (30-55); Mean Corpuscular Hemoglobin 31.6 pg (27-33); Mean Corpuscular Volume 94.5 fl (82-101); Mean Platelet Volume 10.1 fL (7.4-10.4); Monocytes # 1.7 10^3/uL (0.2-0.9); Neutrophils # 5.05 10^3/uL (1.8-7.7); Neutrophils % 56.6 %; Nucleated Red Blood Cells % 0 %; Platelet Count 239 10^3/cmm (157-399); Red Blood Count 3.45 10^6/uL (3.85-5.65); Red Cell Distribution Width 11.7 % (12.1-15.1); White Blood Count 8.94 10^3/uL (3.29-11.43)
[2023-12-01 06:12] LABS: Alanine Aminotransferase 14 U/L (0-41); Albumin Level 3.2 g/dL (3.5-5.2); Alkaline Phosphatase 81 U/L (40-130); Anion Gap 17.3 (5-19); Aspartate Amino Transferase 22 U/L (0-40); Blood Urea Nitrogen 50 mg/dL (8-23); Calcium 8.4 mg/dL (8.5-10.5); Carbon Dioxide 23 mmol/L (22-29); Chloride 103 mmol/L (98-107); Creatinine Clr Calc Pharmacy 30.0773; Globulin 3.2 g/dL (1.3-4.6); Glucose 131 mg/dL (65-115); Magnesium 2.5 mg/dL (1.7-2.3); Osmolality Calculated 305 mOsm/kg (285-295); Phosphorus 4.9 mg/dL (2.5-4.5); Potassium 3.3 mmol/L (3.5-5.1); Sodium 140 mmol/L (136-145); Total Bilirubin 0.4 mg/dL (0.15-1.2); Total Protein 6.4 g/dL (6.6-8.7)
[2023-12-01 06:16] LABS: Slide Review Slide Review Perform
[2023-12-01] MEDS: apixaban 5 mg Tablet PO (09:39)
[2023-12-01] MEDS: atorvastatin 40 mg Tablet 80 MG PO (09:39)
[2023-12-01] MEDS: azithromycin 250 mg Tablet 500 MG PO (09:40)
[2023-12-01] MEDS: cefTRIAXone 1,000 MG in sodium chloride 0.9% (plus) 50 ML 100 MG IV (09:40)
[2023-12-01] MEDS: sennosides-docusate Tablet 1 TAB PO (09:40)
[2023-12-01] MEDS: cilostazol 100 mg Tablet 50 MG PO ×2 (11:39→18:19)
[2023-12-01] MEDS: oxyCODONE 5 mg IR Tab/Cap PO ×3 (11:50→20:50)
--- NOTE | 2023-12-01 12:41 | PC.SOCIAL ---
Pg 2 IMM Explained to pt Pg 2 IMM. No questions voiced. Provided pt a copy. Initialed, dated, & timed a copy & placed in chart.
[2023-12-01] MEDS: aspirin 81 mg EC Tablet PO (14:22)
--- NOTE | 2023-12-01 14:33 | P.CONIM_ITS ---
Providers/Reason For Consult 2 Consulting Physician/Specialty*: Annika Dorsey DO, telemedicine Reason for Consult*: Acute kidney injury, CKD Requesting Physician: Geronimo Curtis MD Attending Physician: Geronimo Curtis MD Primary Care Provider: JAMES Penn History of Present Illness History of Present Illness Art Hollins is a 78 year old male being treated for pneumonia. Has PAD, painful discolored right great toe. 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 Reports DM for at least 17years; now diet controlled. Lost 67# over past 3 years. Denies diabetic retinopathy or neuropathy. States he is getting eye injection for hypertensive retinopathy Denies use of NSAIDs Review of Systems 2 Card: Denies: chest pain or dyspnea on exertion Resp: Reports: dyspnea : Denies: difficulty urinating Musc: Reports: joint pain (right great toe - severe pain) Medications/Allergies Home Medications Medication Instructions Recorded Confirmed Last Taken Type acetaminophen 500 mg tablet 500 mg PO Q6H PRN Pain 12/08/20 11/28/23 Unknown History (Tylenol Extra Strength) cholecalciferol (vitamin D3) 50 50 mcg PO DAILY 12/08/20 11/28/23 03/06/23 History mcg (2,000 unit) capsule [id number] 300 mcg-K 60 1 tab PO DAILY 07/08/21 11/28/23 03/06/23 History mcg-lycop 600 mcg-lutein 300 mcg tablet (Centrum Silver Ultra Men's) tramadol 50 mg tablet 50 mg PO DAILY PRN Pain 10/18/21 11/28/23 Unknown History atorvastatin 80 mg tablet 80 mg PO DAILY #90 tabs 04/20/22 11/28/23 03/06/23 Rx psyllium husk 3.4 gram/5.4 gram 1 tbsp PO BID 01/18/23 11/28/23 03/06/23 History oral powder (Metamucil) nifedipine 30 mg tablet,extended See Rx Instructions .Route .COMPLEX 02/27/23 11/28/23 03/06/23 History release apixaban 5 mg tablet 5 mg PO BID 11/21/23 11/28/23 Unknown History chlorthalidone 25 mg tablet 25 mg PO DAILY #90 tabs 11/21/23 11/28/23 Unknown Rx tamsulosin 0.4 mg capsule 0.8 mg PO BEDTIME 11/21/23 11/28/23 Unknown History furosemide 20 mg tablet 20 mg PO DAILY 11/28/23 11/28/23 Unknown History naloxone 0.4 mg/mL injection 0.4 mg SUBCUT Q2M PRN OVERDOSE 11/28/23 11/28/23 Unknown History solution oxycodone-acetaminophen 5 mg-325 1 tab PO Q4H PRN Pain 11/28/23 11/28/23 Unknown History mg tablet Allergies Allergy/AdvReac Type Severity Reaction Status Date / Time ibuprofen Allergy Intermediate ALGY-Joint Verified 11/21/23 11:40 Pain gemfibrozil Allergy Unknown Unknown Verified 11/21/23 11:40 metformin AdvReac Mild ADR-Dizzine Verified 11/21/23 11:40 ss amlodipine AdvReac Unknown hair loss Verified 11/21/23 11:40 fish oil AdvReac Unknown indigestion Verified 11/21/23 11:40 loratadine [From Claritin] AdvReac Unknown woozy Verified 11/21/23 11:40 Current Medications Generic Name Dose Route Start Last Admin Trade Name Freq PRN Reason Stop Dose Admin Acetaminophen 500 mg 11/28/23 20:41 11/29/23 03:55 Acetaminophen 500 Mg Tablet PO 500 mg Q4H PRN Administration fever Aspirin 81 mg 12/01/23 13:30 12/01/23 14:22 Aspirin 81 Mg Ec Tablet PO 81 mg DAILY MOHSEN Administration Atorvastatin Calcium 80 mg 11/29/23 09:00 12/01/23 09:39 Atorvastatin 40 Mg Tablet PO 80 mg DAILY MOHSEN Administration Azithromycin 500 mg 11/29/23 09:00 12/01/23 09:40 Azithromycin 250 Mg Tablet PO 500 mg DAILY MOHSEN Administration Protocol Cilostazol 50 mg 12/01/23 10:40 12/01/23 11:39 Cilostazol 100 Mg Tablet PO 50 mg BID MOHSEN Administration Ceftriaxone Sodium 1,000 mg/ 50 mls @ 100 mls/hr 11/29/23 09:00 12/01/23 10:22 Sodium Chloride IV Infused DAILY MOHSEN Infusion Protocol Oxycodone HCl 5 - 10 mg 12/01/23 10:40 12/01/23 11:50 Oxycodone 5 Mg Ir Tab/Cap PO 10 mg Q4H PRN Administration MODERATE PAIN Senna/Docusate Sodium 1 tab 11/29/23 09:00 12/01/23 09:40 Sennosides-Docusate Tablet PO 1 tab DAILY MOHSEN Administration Tamsulosin HCl 0.8 mg 11/29/23 21:00 11/30/23 20:36 Tamsulosin 0.4 Mg Capsule PO 0.8 mg BEDTIME MOHSEN Administration Tramadol HCl 50 mg 11/28/23 22:40 11/29/23 23:47 Tramadol 50 Mg Tablet PO 50 mg DAILY PRN Administration Pain PFSH Acute 2 PFSH: Medical History Pulmonary vascular congestion Embolism and thrombosis of arteries of the lower extremities Peripheral arterial disease History of nonmelanoma skin cancer COPD (chronic obstructive pulmonary disease) Elevated PSA Pulmonary embolism Hypertension Hyperlipidemia Low back pain Retinal ischemia Pulmonary nodule Type 2 diabetes mellitus Vitamin D deficiency Diverticulosis Hiatal hernia Surgical History History of colon resection History of tonsillectomy H/O arthroscopic knee surgery Hx of cataract surgery Family History Other CAD (coronary artery disease) Cancer Diabetes Hyperlipidemia Hypertension Stroke Denies family history of Clotting disorder Dementia Psychiatric illness Chronic kidney disease (CKD) Anesthesia complication Bleeding disorder Family history of premature coronary artery disease Lung disease Social History Smoking and tobacco/nicotine status: former use of tobacco/nicotine Quit status (tobacco/nicotine): has quit using Year quit tobacco: 2010 Former quit date comment: smoked 135 pack years Second hand smoke exposure: No Alcohol intake: current Alcohol intake frequency: holidays/special occasions only Substance/Drug Use: never Vitals/I&O/Wt Last Vital Signs Temp 97.6 F 12/01/23 12:00 Pulse 96 12/01/23 12:00 Resp 16 12/01/23 12:00 BP 162/52 12/01/23 12:00 Pulse Ox 94 12/01/23 12:00 O2 Del Method Room Air 12/01/23 12:00 O2 Flow Rate 2 11/29/23 08:00 11/30/23 12/01/23 12/01/23 22:59 06:59 14:59 Intake Total 120 / 170 50 / 220 650 / 650 Output Total 225 / 225 Balance 120 / 170 -175 / -5 650 / 650 Weight last 48 hrs Weight 70.035 kg Weight 74.616 kg Physical Exam 2 Const: COMMON NORMALS: no acute distress and alert Extremity: COMMON NORMALS: no pedal edema NARRATIVE EXTREMITY EXAM: bluish discoloration right great toe Neuro: SENSORIUM/ORIENTATION: Yes alert Data 12/01/23 05:15 12/01/23 05:15 Other Labs: urinalysis 2+ protein baseline serum Cr 1.5 Ca 8.4, phos 4.9, Mg 2.5 US: Radiologist's impression: 10/2023 Right kidney: 9.6 cm x 4.6 cm x 4.7 cm. Cortex: 1.6 cm Normal echogenicity with no hydronephrosis or mass. Left kidney: 9.9 cm x 4.7 cm x 4.7 cm. Cortex: 1.4 cm Normal echogenicity with no hydronephrosis or mass. Aorta: Poorly visualized. Urinary Bladder: Normally distended. There is a small posterior bladder diverticulum containing debris. US Vascular: Radiologist's impression: arterial doppler Mild to moderate diffuse plaque in the iliac and femoral artery Clinically low Doppler flow velocities on the right side CONCLUSIONS 1. Abnormal resting ROBYN of 0.4 on the right side, suggestive of severe obstructive arterial disease, possibly at the aortoiliac level 2. Mild to moderate diffuse plaques in the iliac and femoral arteries bilaterally 3. Patent iliac, femoral, popliteal and inferolateral infrapopliteal vessels bilaterally 4. Normal resting ROBYN on the left side, suggesting no significant arterial obstruction. No similar previous studies are available for comparison Echo: Radiologist's impression: normal EF Other data: seen via telemedicine with assitance of RN at bedside A&P Assessment and plan (1) Acute kidney injury: Plan 1. Acute kidney inury 2. CKD likely due to diabetic nephropathy, hypertension, aging 3. Hypokalemia 4. Pneumonia 5. Peripehral artery disease with ischemia left foot, will need arteriogram. Hold on procedure until renal function improves if possible. Recommend: agree with holding diuretics, IVF hydration, replace Kcl po Consult Attestations 2 Medical Necessity Statement: see above Time Spent in Patient Care: 16 - 35 minutes Coding Level of Care Code Acute Code for [facility] Diagnoses Acute kidney injury N17.9
--- NOTE | 2023-12-01 14:40 | PM.CONSULT ---
Providers/Reason For Consult Consulting Physician/Specialty*: Raheel Guillen MD/ Cardiology Reason for Consult*: Peripheral artery disease Requesting Physician: Dr Curtis Attending Physician: Geronimo Curtis MD Primary Care Provider: JAMES Penn History of Present Illness History of Present Illness Art Hollins is a 78 year old male with past medical history of hypertension who was recently seen in cardiology office secondary to multiple discoloration and discomfort of right big toe. CTA was of limited quality at outside hospital. He was started on Eliquis. He was admitted this time to hospital with shortness of breath. NT proBNP was elevated. Likely secondary to diastolic dysfunction. EF is normal. Denies chest pain. Creatinine much higher than baseline right now. Cardiology was consulted as patient is complaining of on and off severe pain in her right foot specifically the big toe. Has been going on for about 3 weeks now. Review of Systems Const: Denies: fever(s) Eyes: Denies: change in vision ENMT: Denies: throat pain Card: Reports: swelling of feet/ankles Resp: Reports: dyspnea and non-productive cough GI: Denies: abdominal pain : Denies: flank pain Musc: Denies: neck pain Skin/Breast: Denies: rash Medications/Allergies Home Medications Medication Instructions Recorded Confirmed Last Taken Type acetaminophen 500 mg tablet 500 mg PO Q6H PRN Pain 12/08/20 11/28/23 Unknown History (Tylenol Extra Strength) cholecalciferol (vitamin D3) 50 50 mcg PO DAILY 12/08/20 11/28/23 03/06/23 History mcg (2,000 unit) capsule [id number] 300 mcg-K 60 1 tab PO DAILY 07/08/21 11/28/23 03/06/23 History mcg-lycop 600 mcg-lutein 300 mcg tablet (Centrum Silver Ultra Men's) tramadol 50 mg tablet 50 mg PO DAILY PRN Pain 10/18/21 11/28/23 Unknown History atorvastatin 80 mg tablet 80 mg PO DAILY #90 tabs 04/20/22 11/28/23 03/06/23 Rx psyllium husk 3.4 gram/5.4 gram 1 tbsp PO BID 01/18/23 11/28/23 03/06/23 History oral powder (Metamucil) nifedipine 30 mg tablet,extended See Rx Instructions .Route .COMPLEX 02/27/23 11/28/23 03/06/23 History release apixaban 5 mg tablet 5 mg PO BID 11/21/23 11/28/23 Unknown History chlorthalidone 25 mg tablet 25 mg PO DAILY #90 tabs 11/21/23 11/28/23 Unknown Rx tamsulosin 0.4 mg capsule 0.8 mg PO BEDTIME 11/21/23 11/28/23 Unknown History furosemide 20 mg tablet 20 mg PO DAILY 11/28/23 11/28/23 Unknown History naloxone 0.4 mg/mL injection 0.4 mg SUBCUT Q2M PRN OVERDOSE 11/28/23 11/28/23 Unknown History solution oxycodone-acetaminophen 5 mg-325 1 tab PO Q4H PRN Pain 11/28/23 11/28/23 Unknown History mg tablet Allergies Allergy/AdvReac Type Severity Reaction Status Date / Time ibuprofen Allergy Intermediate ALGY-Joint Verified 11/21/23 11:40 Pain gemfibrozil Allergy Unknown Unknown Verified 11/21/23 11:40 metformin AdvReac Mild ADR-Dizzine Verified 11/21/23 11:40 ss amlodipine AdvReac Unknown hair loss Verified 11/21/23 11:40 fish oil AdvReac Unknown indigestion Verified 11/21/23 11:40 loratadine [From Claritin] AdvReac Unknown woozy Verified 11/21/23 11:40 Current Medications Generic Name Dose Route Start Last Admin Trade Name Freq PRN Reason Stop Dose Admin Acetaminophen 500 mg 11/28/23 20:41 11/29/23 03:55 Acetaminophen 500 Mg Tablet PO 500 mg Q4H PRN Administration fever Aspirin 81 mg 12/01/23 13:30 12/01/23 14:22 Aspirin 81 Mg Ec Tablet PO 81 mg DAILY MOHSEN Administration Atorvastatin Calcium 80 mg 11/29/23 09:00 12/01/23 09:39 Atorvastatin 40 Mg Tablet PO 80 mg DAILY MOHSEN Administration Azithromycin 500 mg 11/29/23 09:00 12/01/23 09:40 Azithromycin 250 Mg Tablet PO 500 mg DAILY MOHSEN Administration Protocol Cilostazol 50 mg 12/01/23 10:40 12/01/23 11:39 Cilostazol 100 Mg Tablet PO 50 mg BID MOHSEN Administration Ceftriaxone Sodium 1,000 mg/ 50 mls @ 100 mls/hr 11/29/23 09:00 12/01/23 10:22 Sodium Chloride IV Infused DAILY MOHSEN Infusion Protocol Oxycodone HCl 5 - 10 mg 12/01/23 10:40 12/01/23 11:50 Oxycodone 5 Mg Ir Tab/Cap PO 10 mg Q4H PRN Administration MODERATE PAIN Senna/Docusate Sodium 1 tab 11/29/23 09:00 12/01/23 09:40 Sennosides-Docusate Tablet PO 1 tab DAILY MOHSEN Administration Tamsulosin HCl 0.8 mg 11/29/23 21:00 11/30/23 20:36 Tamsulosin 0.4 Mg Capsule PO 0.8 mg BEDTIME MOHSEN Administration Tramadol HCl 50 mg 11/28/23 22:40 11/29/23 23:47 Tramadol 50 Mg Tablet PO 50 mg DAILY PRN Administration Pain PFSH Acute PFSH: Medical History Pulmonary vascular congestion Embolism and thrombosis of arteries of the lower extremities Peripheral arterial disease History of nonmelanoma skin cancer COPD (chronic obstructive pulmonary disease) Elevated PSA Pulmonary embolism Hypertension Hyperlipidemia Low back pain Retinal ischemia Pulmonary nodule Type 2 diabetes mellitus Vitamin D deficiency Diverticulosis Hiatal hernia Surgical History History of colon resection History of tonsillectomy H/O arthroscopic knee surgery Hx of cataract surgery Family History Other CAD (coronary artery disease) Cancer Diabetes Hyperlipidemia Hypertension Stroke Denies family history of Clotting disorder Dementia Psychiatric illness Chronic kidney disease (CKD) Anesthesia complication Bleeding disorder Family history of premature coronary artery disease Lung disease Social History Smoking and tobacco/nicotine status: former use of tobacco/nicotine Quit status (tobacco/nicotine): has quit using Year quit tobacco: 2010 Former quit date comment: smoked 135 pack years Second hand smoke exposure: No Alcohol intake: current Alcohol intake frequency: holidays/special occasions only Substance/Drug Use: never Vitals/I&O/Wt Last Vital Signs Temp 97.6 F 12/01/23 12:00 Pulse 96 12/01/23 12:00 Resp 16 12/01/23 12:00 BP 162/52 12/01/23 12:00 Pulse Ox 94 12/01/23 12:00 O2 Del Method Room Air 12/01/23 12:00 O2 Flow Rate 2 11/29/23 08:00 11/30/23 12/01/23 12/01/23 22:59 06:59 14:59 Intake Total 120 / 170 50 / 220 650 / 650 Output Total 225 / 225 Balance 120 / 170 -175 / -5 650 / 650 Weight last 48 hrs Weight 154 lb 6.4 oz Weight 164 lb 8 oz Physical Exam Narrative: GENERAL: Patient is alert, awake and oriented x3. [] NECK: No jugular vein distension. [] HEENT: No cyanosis. No icterus. No pallor. [] HEART: Regular S1 and S2. No murmur, rub or gallop. [] LUNGS: Clear to auscultate bilaterally. [] CENTRAL NERVOUS SYSTEM: Grossly nonfocal. [] EXTREMITIES: Lower extremities pulses palpabale. Right foot pulse is dopplerable. 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: (6) Type 2 diabetes mellitus: Qualifiers: Diabetes mellitus skilled nursing insulin use: without terminal makeup operator use Diabetes mellitus complication status: without complication Qualified Code(s): E11.9 - Type 2 diabetes mellitus without complications (7) Hyperdense renal cyst: (8) Pneumonia: Qualifiers: Laterality: right Lung location: lower lobe of lung Pneumonia type: due to unspecified organism Qualified Code(s): J18.9 - Pneumonia, unspecified organism (9) Pulmonary vascular congestion: (10) Acute worsening of stage 3 chronic kidney disease: Plan Patient has a blue to that is intermittently painful. Creatinine is significantly higher than baseline. Will recommend stopping Eliquis and switching to heparin drip. Will have gentle hydration to improve renal function. Once close to baseline, we will proceed with peripheral angiogram. Patient is worried about renal dysfunction ROBYN 0.4 on ultrasound. However pulses dopplerable on the foot and femoral pulses are bounding. Ultrasound suggestive of possibility of aortoiliac disease. It could have caused embolization downstream to the toe. Continue anticoagulation. Monitor renal function Thank you for involving us with care of this patient. we will continue to follow. Please call with questions. Consult Attestations Medical Necessity Statement: Care expected to cross 2 midnights. Coding Level of Care Code Acute Code for [facility] Diagnoses Limb ischemia I99.8 Essential hypertension I10 Hypertension type: essential hypertension Left subclavian artery occlusion I70.8 Peripheral arterial disease I73.9 Embolism and thrombosis of arteries of the lower extremities I74.3 Type 2 diabetes mellitus without complication, without long-term current use of insulin E11.9 Diabetes mellitus skilled nursing insulin use: without terminal makeup operator use Diabetes mellitus complication status: without complication Hyperdense renal cyst N28.1 Pneumonia J18.9 Laterality: right Lung location: lower lobe of lung Pneumonia type: due to unspecified organism Pulmonary vascular congestion R09.89 Acute worsening of stage 3 chronic kidney disease N18.30
--- NOTE | 2023-12-01 14:51 | PM.PN ---
Subjective Subjective: Patient was seen this morning, patient is in severe pain, he is sitting up in bed, rubbing his right leg, he tells me he cannot sleep at all last night due to severe pain, he tells me now is uncontrollable, he continues to have a bluish hue to his right toe increased compared to yesterday, other digits are not affected, leg is not cold, has good DP PT pulses but slightly diminished, he just tells me he has severe pain in not manageable anymore, he tells me that the pain typically improves by laying his leg over the side of the bed but today it is persisting, has very severe rest pain, we discussed talking with cardiology, patient's creatinine is up to 2.0, will have to watch his kidney function, patient is agreeable, pain control continue to arterial ultrasound right lower extremity continue to monitor closely ? Consulted nephrology about patient's creatinine of 2.0 -Spoke to Dr. Dukes about arterial ultrasound results, ROBYN 0.4 on the right, ? Spoke to cardiology about patient's ROBYN, spoke to Dr. Guillen, interventional, as patient has severe intractable pain now more with rest pain, although limb is not acute really cold, he has good sensation in the right toe is blue slightly more compared to yesterday, concerns for possible acute on chronic limb ischemia, discussed continuing Doppler impulses monitoring closely, started on heparin drip, will consult, however limiting factors patient's creatinine of 2.0 Vitals/I&O/Wt Last Vital Signs Temp 97.6 F 12/01/23 12:00 Pulse 96 12/01/23 12:00 Resp 16 12/01/23 12:00 BP 162/52 12/01/23 12:00 Pulse Ox 94 12/01/23 12:00 O2 Del Method Room Air 12/01/23 12:00 O2 Flow Rate 2 11/29/23 08:00 11/30/23 12/01/23 12/01/23 22:59 06:59 14:59 Intake Total 120 / 170 50 / 220 650 / 650 Output Total 225 / 225 Balance 120 / 170 -175 / -5 650 / 650 Weight last 48 hrs Weight 70.035 kg Weight 74.616 kg Physical Exam Const: COMMON NORMALS: no acute distress and patient oriented x3 Resp: COMMON NORMALS: normal respiratory effort, No retractions, No use of accessory muscles and clear to auscultation bilaterally AUSCULTATION: clear to auscultation bilaterally Cardio: COMMON NORMALS: regular rate, regular rhythm, S1 normal heart sound present and S2 normal heart sound present RATE: regular rate RHYTHM: regular rhythm HEART SOUNDS: S1 normal heart sound present and S2 normal heart sound present GI: COMMON NORMALS: Normal to inspection, nondistended, normoactive bowel sounds present and non-tender Extremity: COMMON NORMALS: no pedal edema NARRATIVE EXTREMITY EXAM: DP PT pulses palpable, right great toe, with a bluish hue to it, good sensation, no other coolness of other digits, has severe rest pain increased pain sensitivity Neuro: COMMON NORMALS: patient oriented x3 Psych: COMMON NORMALS: mental status grossly normal Data 12/01/23 05:15 12/01/23 05:15 A&P Assessment and plan (1) Hypertension: Qualifiers: Hypertension type: essential hypertension Qualified Code(s): I10 - Essential (primary) hypertension (2) Left subclavian artery occlusion: (3) Peripheral arterial disease: (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: (5) Type 2 diabetes mellitus: Qualifiers: Diabetes mellitus terminal block assembler insulin use: without terminal block assembler use Diabetes mellitus complication status: without complication Qualified Code(s): E11.9 - Type 2 diabetes mellitus without complications (6) Hyperdense renal cyst: (7) Pneumonia: Qualifiers: Laterality: right Lung location: lower lobe of lung Pneumonia type: due to unspecified organism Qualified Code(s): J18.9 - Pneumonia, unspecified organism (8) Pulmonary vascular congestion: (9) Acute worsening of stage 3 chronic kidney disease: (10) Acute lower limb ischemia: Plan Community-acquired pneumonia Continue Rocephin, azithromycin Currently not requiring oxygen Patient endorsing low-grade fever at home 99.7 No signs of confusion, no fever or sepsis Acute preserved ejection fraction CHF exacerbation Elevated creatinine, hold diuresis for today Patient looks mildly fluid overloaded Blue toe syndrome Has seen Dr. Brown in the past who has started him on anticoagulating agent Eliquis Plan for aorta with runoff once creatinine is stable, However today has severe rest pain, severe intractable pain, increased hypersensitivity to touch, continues to have a blue toe, a bit more of a bluish hue today compared to yesterday, continues to have pulses palpable on the right although slightly diminished ? Concerns for developing acute on chronic limb ischemia ? ROBYN is 0.4 on the right ? Spoke to cardiology, will consult, ? Switch to heparin drip, ? Continue aspirin, Eliquis, add cilostazol ? Have increased oxycodone 5 mg 1 to 2 tablets every 4 hours as needed Acute on chronic limb ischemia Intractable pain Good DP and PT pulses bilaterally no Ischemic ulcers Oxycodone for pain control as above Acute on chronic kidney disease stage III Mild exacerbation related to cardiorenal syndrome Creatinine up to 2.0, nephrology consulted Patient lives at home Fairly active for his age Full code Cardiac diet/ Patient was seen this morning, patient is in severe pain, he is sitting up in bed, rubbing his right leg, he tells me he cannot sleep at all last night due to severe pain, he tells me now is uncontrollable, he continues to have a bluish hue to his right toe increased compared to yesterday, other digits are not affected, leg is not cold, has good DP PT pulses but slightly diminished, he just tells me he has severe pain in not manageable anymore, he tells me that the pain typically improves by laying his leg over the side of the bed but today it is persisting, has very severe rest pain, we discussed talking with cardiology, patient's creatinine is up to 2.0, will have to watch his kidney function, patient is agreeable, pain control continue to arterial ultrasound right lower extremity continue to monitor closely ? Consulted nephrology about patient's creatinine of 2.0 -Spoke to Dr. Dukes about arterial ultrasound results, ROBYN 0.4 on the right, ? Spoke to cardiology about patient's ROBYN, spoke to Dr. Guillen, interventional, as patient has severe intractable pain now more with rest pain, although limb is not acute really cold, he has good sensation in the right toe is blue slightly more compared to yesterday, concerns for possible acute on chronic limb ischemia, discussed continuing Doppler impulses monitoring closely, started on heparin drip, will consult, however limiting factors patient's creatinine of 2.0, nephrology consulted Attestations Medical Necessity Statement*: Patient requires hospitalization for CLOTILDE, now with concerns for acute limb ischemia, requiring cardiology evaluation, switching to heparin drip, pain control, intractable pain Diagnoses Essential hypertension I10 Hypertension type: essential hypertension Left subclavian artery occlusion I70.8 Peripheral arterial disease I73.9 Embolism and thrombosis of arteries of the lower extremities I74.3 Type 2 diabetes mellitus without complication, without long-term current use of insulin E11.9 Diabetes mellitus terminal block assembler insulin use: without alf use Diabetes mellitus complication status: without complication Hyperdense renal cyst N28.1 Pneumonia J18.9 Laterality: right Lung location: lower lobe of lung Pneumonia type: due to unspecified organism Pulmonary vascular congestion R09.89 Acute worsening of stage 3 chronic kidney disease N18.30 Acute lower limb ischemia I99.8
[2023-12-01] MEDS: sodium chloride 0.9% 1,000 ML 50 ML IV (15:36)
[2023-12-01] MEDS: heparin drip 25,000 UNIT/500 ML PREMIX 19.6099999999999994 UNIT IV (17:49)
[2023-12-01 17:58] LABS: Lactate (Lactic Acid level) 2.8 mmol/L (0.5-2.2)
[2023-12-01] MEDS: heparin 5,000 unit/mL INJ 1 mL IV (18:02)
[2023-12-01 18:06] LABS: Creatine Phosphokinase 119 U/L (39-308)
[2023-12-01 19:48] LABS: Bilirubin Urine Neg (Negative); Blood Urine Neg (Negative); Glucose Urine UA 1+ (Normal); Ketones Urine Negative (Negative); Leukocyte Esterase Urine Negative (Negative); Nitrate Urine Negative (Negative); Protein Urine 3+ (Negative); RBC Urine 0-4 /hpf (0-2); Specific Gravity, Urine 1.015 (1.005-1.030); Squamous Epithelial Cell Urine 0-4 /hpf (0-5); Urine Appearance SL Hazy (CLEAR); Urine Color Light yellow (Yellow); Urobilinogen Urine Neg (Negative); WBC Urine 0-4 /hpf (0-5); pH Urine 6.5 (5-7)
[2023-12-01 19:49] LABS: Amorphous Sediment Urine TRACE /hpf; Bacteria Urine TRACE /hpf; Coarse Granular Casts Urine 0-4 /lpf; Mucus Urine TRACE /hpf
[2023-12-01 19:52] LABS: Creatinine Urine, Random 86 mg/dL (39-259)
[2023-12-01 19:57] LABS: Urine Random Sodium 97 mmol/L
[2023-12-01 20:08] LABS: Urine Protein Random 363 mg/dL
[2023-12-01] MEDS: tamsulosin 0.4 mg Capsule 0.800000000000000044 MG PO (20:51)
[2023-12-02] VITALS (11 sets, daily range): BP systolic 143–192; BP diastolic 42–90; PULSE 58–98; RESP 16–18; TEMP 36.5–37.1; O2SAT 93–96
[2023-12-02] MEDS: TRAMadol 50 mg Tablet PO (00:27)
[2023-12-02 00:58] LABS: Partial Thromboplastin Time 107.5 SECONDS (23.9-36.7)
[2023-12-02] MEDS: oxyCODONE 5 mg IR Tab/Cap PO ×5 (02:14→20:26)
[2023-12-02 03:05] LABS: Basophils % 0.1 %; Eosinophils # 0.1 10^3/uL (0.0-0.8); Eosinophils % 0.9 %; Hematocrit 31.6 % (37-53); Lymphocytes # 1.8 10^3/uL (0.8-4.8); Mean Corpuscular HGB Conc 32.6 g/dL (30-55); Mean Corpuscular Hemoglobin 31.3 pg (27-33); Mean Platelet Volume 10.1 fL (7.4-10.4); Monocytes # 1.6 10^3/uL (0.2-0.9); Monocytes % 21.7 %; Neutrophils # 3.81 10^3/uL (1.8-7.7); Neutrophils % 50.5 %; Nucleated Red Blood Cells % 0 %; Platelet Count 189 10^3/cmm (157-399); Red Blood Count 3.29 10^6/uL (3.85-5.65); Red Cell Distribution Width 11.6 % (12.1-15.1); White Blood Count 7.55 10^3/uL (3.29-11.43)
[2023-12-02 03:31] LABS: Alanine Aminotransferase 14 U/L (0-41); Albumin Level 2.9 g/dL (3.5-5.2); Alkaline Phosphatase 78 U/L (40-130); Anion Gap 14.3 (5-19); Aspartate Amino Transferase 21 U/L (0-40); Blood Urea Nitrogen 52 mg/dL (8-23); Calcium 7.9 mg/dL (8.5-10.5); Carbon Dioxide 25 mmol/L (22-29); Chloride 107 mmol/L (98-107); Globulin 2.6 g/dL (1.3-4.6); Glucose 114 mg/dL (65-115); Magnesium 2.5 mg/dL (1.7-2.3); Osmolality Calculated 311 mOsm/kg (285-295); Phosphorus 4.3 mg/dL (2.5-4.5); Potassium 3.3 mmol/L (3.5-5.1); Sodium 143 mmol/L (136-145); Total Bilirubin 0.3 mg/dL (0.15-1.2); Total Protein 5.5 g/dL (6.6-8.7)
[2023-12-02 07:35] LABS: Partial Thromboplastin Time 94.5 SECONDS (23.9-36.7)
[2023-12-02] MEDS: cefTRIAXone 1,000 MG in sodium chloride 0.9% (plus) 50 ML 1 MG IV (08:52)
[2023-12-02] MEDS: sennosides-docusate Tablet 1 TAB PO (08:53)
[2023-12-02] MEDS: atorvastatin 40 mg Tablet 80 MG PO (08:53)
[2023-12-02] MEDS: cilostazol 100 mg Tablet 50 MG PO ×2 (08:53→17:14)
[2023-12-02] MEDS: aspirin 81 mg EC Tablet PO (08:53)
[2023-12-02] MEDS: azithromycin 250 mg Tablet 500 MG PO (08:53)
--- NOTE | 2023-12-02 10:40 | P.PN_ITS ---
Subjective 2 Subjective: no new symptoms, continues to have pain in right great toe Vitals/I&O/Wt Last Vital Signs Temp 97.7 F 12/02/23 07:47 Pulse 58 L 12/02/23 07:47 Resp 18 12/02/23 08:52 BP 164/90 12/02/23 07:47 Pulse Ox 96 12/02/23 07:47 O2 Del Method Room Air 12/02/23 07:47 O2 Flow Rate 2 11/29/23 08:00 12/01/23 12/02/23 12/02/23 22:59 06:59 14:59 Intake Total 720.981 / 1370.981 145 / 1515.981 225.6 / 225.6 Output Total 800 / 800 300 / 300 Balance 720.981 / 1370.981 -655 / 715.981 -74.4 / -74.4 Weight last 48 hrs Weight 73.709 kg Weight 70.035 kg Physical Exam 2 Const: COMMON NORMALS: no acute distress and alert Extremity: NARRATIVE EXTREMITY EXAM: no edema Neuro: SENSORIUM/ORIENTATION: Yes alert Data 12/02/23 02:26 12/02/23 02:26 Other Labs: urinalysis bland, urine protein/Cr ratio 4222 mg/g CK 119, urine Na 97 albumin 2.9, Ca 7.9, phos 4.3, Mg 2.5 US: Radiologist's impression: 10/2023 Right kidney: 9.6 cm x 4.6 cm x 4.7 cm. Cortex: 1.6 cm Normal echogenicity with no hydronephrosis or mass. Left kidney: 9.9 cm x 4.7 cm x 4.7 cm. Cortex: 1.4 cm Normal echogenicity with no hydronephrosis or mass. Other data: seen via telemedicine with assistance of RN at bedside A&P Assessment and plan (1) Acute kidney injury: Plan 1. Acute kidney injury: Creatinine higher; good urine output. 2. 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 Nephrotic range proteinuria, hypoalbuminemia 3. Hypokalemia: received po KCl this AM 4. Pneumonia 5. Peripheral artery disease with ischemia left foot, will need arteriogram. Hold on procedure until renal function improves if possible. Recommend: agree with holding diuretics, IVF hydration, replace Kcl po Attestations 2 Medical Necessity Statement*: see above Time Spent in Patient Care: 16 - 35 minutes Coding Level of Care Code Acute Code for [facility] Fwd Diagnoses Acute kidney injury N17.9
[2023-12-02] MEDS: potassium chloride ER 20 mEq Tablet 40 MEQ PO (11:13)
--- NOTE | 2023-12-02 13:23 | PC.NURSE ---
Pulse right foot doppled at this time. Audible, but faint. Pulse marked.
--- NOTE | 2023-12-02 13:38 | P.PN_ITS ---
Subjective 2 Subjective: Patient's renal function continues to be high. Continue to have intermittent foot pain. Vitals/I&O/Wt Last Vital Signs Temp 98.5 F 12/02/23 11:44 Pulse 67 12/02/23 11:44 Resp 18 12/02/23 12:57 BP 185/55 12/02/23 11:44 Pulse Ox 93 12/02/23 11:44 O2 Del Method Room Air 12/02/23 11:44 O2 Flow Rate 2 11/29/23 08:00 12/01/23 12/02/23 12/02/23 22:59 06:59 14:59 Intake Total 720.981 / 1370.981 145 / 0514.331 8939.6 / 1345.6 Output Total 800 / 800 700 / 700 Balance 720.981 / 1370.981 -655 / 715.981 645.6 / 645.6 Weight last 48 hrs Weight 162 lb 8 oz Weight 154 lb 6.4 oz Physical Exam 2 Narrative: GENERAL: Patient is alert, awake and oriented x3. [] NECK: No jugular vein distension. [] HEENT: No cyanosis. No icterus. No pallor. [] HEART: Regular S1 and S2. No murmur, rub or gallop. [] LUNGS: Clear to auscultate bilaterally. [] CENTRAL NERVOUS SYSTEM: Grossly nonfocal. [] EXTREMITIES: Lower extremities pulses palpabale. Right foot pulse is dopplerable. 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: (6) Type 2 diabetes mellitus: Qualifiers: Diabetes mellitus technician terminal and repeater insulin use: without [facility] use Diabetes mellitus complication status: without complication Qualified Code(s): E11.9 - Type 2 diabetes mellitus without complications (7) Hyperdense renal cyst: (8) Pneumonia: Qualifiers: Laterality: right Lung location: lower lobe of lung Pneumonia type: d ue to unspecified organism Qualified Code(s): J18.9 - Pneumonia, unspecified organism (9) Pulmonary vascular congestion: (10) Acute worsening of stage 3 chronic kidney disease: Plan Patient has a blue to that is intermittently painful. Creatinine is significantly higher than baseline. Will recommend stopping Eliquis and switching to heparin drip. Will have gentle hydration to improve renal function. Once close to baseline, we will proceed with peripheral angiogram. ROBYN 0.4 on ultrasound. However pulses dopplerable on the foot and femoral pulses are bounding. Ultrasound suggestive of possibility of aortoiliac disease. It could have caused embolization downstream to the toe. Continue anticoagulation. Renal function is still elevated. Continue IV hydration. Nephrology on board. Thank you for involving us with care of this patient. we will continue to follow. Please call with questions. Attestations 2 Medical Necessity Statement*: Care expected to cross 2 midnights. Coding Level of Care Code Acute Code for [facility] Fwd Diagnoses Limb ischemia I99.8 Essential hypertension I10 Hypertension type: essential hypertension Left subclavian artery occlusion I70.8 Peripheral arterial disease I73.9 Embolism and thrombosis of arteries of the lower extremities I74.3 Type 2 diabetes mellitus without complication, without long-term current use of insulin E11.9 Diabetes mellitus [facility] insulin use: without [facility] use Diabetes mellitus complication status: without complication Hyperdense renal cyst N28.1 Pneumonia J18.9 Laterality: right Lung location: lower lobe of lung Pneumonia type: due to unspecified organism Pulmonary vascular congestion R09.89 Acute worsening of stage 3 chronic kidney disease N18.30
--- NOTE | 2023-12-02 13:58 | P.PN_ITS ---
Subjective 2 Subjective: Patient was seen this morning, he continues to complain of pain in his right lower extremity, has more rest pain he tells me, he takes off his socks shows me his right lower extremity continues to have a blue toe, but the rest of the foot has good blanching, DP PT pulses are palpable, good cap refill, are pink in color, has good mobility, is more hypersensitive to touch continues to have intractable pain but that increased dose of oxycodone has helped, discussed his elevated creatinine of 2.2, will have to start IV fluids and monitor his kidney function, he understands this, spoke to cardiology, start IV hydration, monitor creatinine Vitals/I&O/Wt Last Vital Signs Temp 98.5 F 12/02/23 11:44 Pulse 67 12/02/23 11:44 Resp 18 12/02/23 12:57 BP 185/55 12/02/23 11:44 Pulse Ox 93 12/02/23 11:44 O2 Del Method Room Air 12/02/23 11:44 O2 Flow Rate 2 11/29/23 08:00 12/01/23 12/02/23 12/02/23 22:59 06:59 14:59 Intake Total 720.981 / 1370.981 145 / 8324.666 7401.6 / 1345.6 Output Total 800 / 800 700 / 700 Balance 720.981 / 1370.981 -655 / 715.981 645.6 / 645.6 Weight last 48 hrs Weight 73.709 kg Weight 70.035 kg Physical Exam 2 Const: COMMON NORMALS: no acute distress and patient oriented x3 Resp: COMMON NORMALS: normal respiratory effort, No retractions, No use of accessory muscles and clear to auscultation bilaterally AUSCULTATION: clear to auscultation bilaterally Cardio: COMMON NORMALS: regular rate, regular rhythm, S1 normal heart sound present and S2 normal heart sound present RATE: regular rate RHYTHM: r egular rhythm HEART SOUNDS: S1 normal heart sound present and S2 normal heart sound present GI: COMMON NORMALS: Normal to inspection, nondistended, normoactive bowel sounds present and non-tender Extremity: COMMON NORMALS: no pedal edema Neuro: COMMON NORMALS: patient oriented x3 Psych: COMMON NORMALS: mental status grossly normal Data 12/02/23 02:26 12/02/23 02:26 A&P Assessment and plan (1) Hypertension: Qualifiers: Hypertension type: essential hypertension Qualified Code(s): I10 - Essential (primary) hypertension (2) Left subclavian artery occlusion: (3) Peripheral arterial disease: (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: (5) Type 2 diabetes mellitus: Qualifiers: Diabetes mellitus senior living insulin use: without senior living use Diabetes mellitus complication status: without complication Qualified Code(s): E11.9 - Type 2 diabetes mellitus without complications (6) Hyperdense renal cyst: (7) Pneumonia: Qualifiers: Laterality: right Lung location: lower lobe of lung Pneumonia type: d ue to unspecified organism Qualified Code(s): J18.9 - Pneumonia, unspecified organism (8) Pulmonary vascular congestion: (9) Acute worsening of stage 3 chronic kidney disease: (10) Acute lower limb ischemia: Plan Community-acquired pneumonia De-escalate antibiotics to doxycycline Patient endorsing low-grade fever at home 99.7 No signs of confusion, no fever or sepsis Acute preserved ejection fraction CHF exacerbation Elevated creatinine, hold diuresis for today Patient looks mildly fluid overloaded Blue toe syndrome Has seen Dr. Brown in the past who has started him on anticoagulating agent Eliquis Plan for aorta with runoff once creatinine is stable, However today has severe rest pain, severe intractable pain, increased hypersensitivity to touch, continues to have a blue toe, a bit more of a bluish hue today compared to yesterday, continues to have pulses palpable on the right although slightly diminished ? Concerns for developing acute on chronic limb ischemia ? ROBYN is 0.4 on the right ? Spoke to cardiology, will consult, ? Switch to heparin drip, ? Continue aspirin, Eliquis, add cilostazol ? Have increased oxycodone 5 mg 1 to 2 tablets every 4 hours as needed Acute on chronic limb ischemia Intractable pain Good DP and PT pulses bilaterally no Ischemic ulcers Oxycodone for pain control as above Acute on chronic kidney disease stage III Mild exacerbation related to cardiorenal syndrome Creatinine up to 2.2, nephrology consulted Patient lives at home Fairly active for his age Full code Cardiac diet/ Patient was seen this morning, he continues to complain of pain in his right lower extremity, has more rest pain he tells me, he takes off his socks shows me his right lower extremity continues to have a blue toe, but the rest of the foot has good blanching, DP PT pulses are palpable, good cap refill, are pink in color, has good mobility, is more hypersensitive to touch continues to have intractable pain but that increased dose of oxycodone has helped, discussed his elevated creatinine of 2.2, will have to start IV fluids and monitor his kidney function, he understands this, spoke to cardiology, start IV hydration, monitor creatinine Attestations 2 Medical Necessity Statement*: patient requires hospitalization for intractable pain, concern for acute on chronic withLimb ischemia, CLOTILDE Diagnoses Essential hypertension I10 Hypertension type: essential hypertension Left subclavian artery occlusion I70.8 Peripheral arterial disease I73.9 Embolism and thrombosis of arteries of the lower extremities I74.3 Type 2 diabetes mellitus without complication, without long-term current use of insulin E11.9 Diabetes mellitus senior living insulin use: without intermodal customer service use Diabetes mellitus complication status: without complication Hyperdense renal cyst N28.1 Pneumonia J18.9 Laterality: right Lung location: lower lobe of lung Pneumonia type: due to unspecified organism Pulmonary vascular congestion R09.89 Acute worsening of stage 3 chronic kidney disease N18.30 Acute lower limb ischemia I99.8
[2023-12-02 14:59] LABS: Partial Thromboplastin Time 55.7 SECONDS (23.9-36.7)
[2023-12-02] MEDS: hyDRALAzine 10 mg Tablet PO ×2 (15:46→22:29)
[2023-12-02] MEDS: tamsulosin 0.4 mg Capsule 0.800000000000000044 MG PO (20:26)
[2023-12-02 21:41] LABS: Partial Thromboplastin Time 46.6 SECONDS (23.9-36.7)
[2023-12-02] MEDS: sodium chloride 0.9% 1,000 ML 50 ML IV (22:29)
[2023-12-02] MEDS: heparin 5,000 unit/mL INJ 1 mL IV (22:29)
[2023-12-03] VITALS (10 sets, daily range): BP systolic 118–193; BP diastolic 47–55; PULSE 43–91; RESP 16–18; TEMP 36.8–37.4; O2SAT 91–96
[2023-12-03] MEDS: oxyCODONE 5 mg IR Tab/Cap PO ×4 (00:47→15:45)
[2023-12-03] MEDS: heparin drip 25,000 UNIT/500 ML PREMIX 14 UNIT IV (01:55)
[2023-12-03 04:37] LABS: Basophils % 0.1 %; Eosinophils # 0.1 10^3/uL (0.0-0.8); Eosinophils % 1.5 %; Hematocrit 29.1 % (37-53); Lymphocytes # 1.9 10^3/uL (0.8-4.8); Lymphocytes % 26.3 %; Mean Corpuscular HGB Conc 33.3 g/dL (30-55); Mean Corpuscular Hemoglobin 31.3 pg (27-33); Mean Corpuscular Volume 93.9 fl (82-101); Mean Platelet Volume 10.2 fL (7.4-10.4); Monocytes # 1.5 10^3/uL (0.2-0.9); Monocytes % 20.1 %; Neutrophils # 3.34 10^3/uL (1.8-7.7); Neutrophils % 46.4 %; Nucleated Red Blood Cells % 0 %; Platelet Count 189 10^3/cmm (157-399); Red Cell Distribution Width 11.4 % (12.1-15.1)
[2023-12-03 04:48] LABS: Partial Thromboplastin Time 57.1 SECONDS (23.9-36.7)
[2023-12-03 05:01] LABS: Alanine Aminotransferase 13 U/L (0-41); Alkaline Phosphatase 77 U/L (40-130); Anion Gap 12.9 (5-19); Aspartate Amino Transferase 19 U/L (0-40); Blood Urea Nitrogen 42 mg/dL (8-23); Calcium 7.8 mg/dL (8.5-10.5); Carbon Dioxide 24 mmol/L (22-29); Chloride 106 mmol/L (98-107); Creatinine Clr Calc Pharmacy 32.5971; Globulin 2.6 g/dL (1.3-4.6); Glucose 152 mg/dL (65-115); Magnesium 2.4 mg/dL (1.7-2.3); Osmolality Calculated 301 mOsm/kg (285-295); Phosphorus 3.6 mg/dL (2.5-4.5); Potassium 3.9 mmol/L (3.5-5.1); Sodium 139 mmol/L (136-145); Total Bilirubin 0.3 mg/dL (0.15-1.2); Total Protein 5.6 g/dL (6.6-8.7)
[2023-12-03 05:22] LABS: NT Pro B Type Natriuretic Pept 1003 pg/mL (0-450)
[2023-12-03] MEDS: hyDRALAzine 10 mg Tablet PO (05:59)
--- NOTE | 2023-12-03 07:14 | PM.PN ---
Subjective Subjective: no new complaints, continues to have toe pain, no urine complaints Vitals/I&O/Wt Last Vital Signs Temp 99.0 F 12/03/23 04:03 Pulse 86 12/03/23 04:03 Resp 16 12/03/23 05:59 BP 157/55 12/03/23 04:03 Pulse Ox 92 12/03/23 05:59 O2 Del Method Room Air 12/03/23 04:03 O2 Flow Rate 2 11/29/23 08:00 12/02/23 12/03/23 12/03/23 22:59 06:59 14:59 Intake Total 189.583 / 1535.183 92.866 / 1628.049 Output Total 525 / 1225 350 / 1575 Balance -335.417 / 310.183 -257.134 / 53.049 Weight last 48 hrs Weight 75.041 kg Weight 73.709 kg Physical Exam Const: COMMON NORMALS: no acute distress and alert Extremity: NARRATIVE EXTREMITY EXAM: no edema, discolored right great toe Neuro: SENSORIUM/ORIENTATION: Yes alert Data 12/03/23 04:20 12/03/23 04:20 Other data: seen via telemedicine with assistance of RN at bedside A&P Assessment and plan (1) Acute kidney injury: Plan 1. Acute kidney injury: renal function improving, good urine output. 2. 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 Nephrotic range proteinuria, hypoalbuminemia 3. Hypokalemia: resolved 4. Pneumonia: improved 5. Peripheral artery disease with ischemia left foot, will need arteriogram. Recommend: continue IVF hydration, if renal function better tomorrow can proceed with arteriogram Attestations Medical Necessity Statement*: see above Time Spent in Patient Care: 16 - 35 minutes Coding Level of Care Code Acute Code for [facility] Fwd Diagnoses Acute kidney injury N17.9
[2023-12-03] MEDS: aspirin 81 mg EC Tablet PO (09:44)
[2023-12-03] MEDS: doxycycline 100 mg Tablet PO ×2 (09:44→17:44)
[2023-12-03] MEDS: atorvastatin 40 mg Tablet 80 MG PO (09:44)
[2023-12-03] MEDS: sennosides-docusate Tablet 1 TAB PO (09:44)
[2023-12-03] MEDS: cilostazol 100 mg Tablet 50 MG PO ×2 (09:44→17:44)
[2023-12-03] MEDS: metoprolol tartrate 25 mg Tablet PO ×2 (09:45→21:29)
[2023-12-03 11:08] LABS: Partial Thromboplastin Time 49.8 SECONDS (23.9-36.7)
[2023-12-03] MEDS: heparin 5,000 unit/mL INJ 1 mL IV (11:28)
--- NOTE | 2023-12-03 13:57 | P.PN_ITS ---
Subjective 2 Subjective: Patient was seen this morning, afebrile overnight, no chest pain, no shortness of breath is on normal saline at 50 cc an hour, he clinically continues to have rest pain in his right leg, we discussed his creatinine 1.9, plan on possible peripheral angiogram and intervention tomorrow based on his creatinine, Vitals/I&O/Wt Last Vital Signs Temp 98.4 F 12/03/23 11:19 Pulse 78 12/03/23 11:19 Resp 16 12/03/23 11:19 BP 154/55 12/03/23 11:19 Pulse Ox 94 12/03/23 11:19 O2 Del Method Room Air 12/03/23 11:19 O2 Flow Rate 2 11/29/23 08:00 12/02/23 12/03/23 12/03/23 22:59 06:59 14:59 Intake Total 189.583 / 1535.183 92.866 / 1628.049 215.9 / 215.9 Output Total 525 / 1225 350 / 1575 Balance -335.417 / 310.183 -257.134 / 53.049 215.9 / 215.9 Weight last 48 hrs Weight 75.041 kg Weight 73.709 kg Physical Exam 2 Const: COMMON NORMALS: no acute distress and patient oriented x3 Resp: COMMON NORMALS: normal respiratory effort, No retractions, No use of accessory muscles and clear to auscultation bilaterally AUSCULTATION: clear to auscultation bilaterally Cardio: COMMON NORMALS: regular rate, regular rhythm, S1 normal heart sound present and S2 normal heart sound present RATE: regular rate RHYTHM: r egular rhythm HEART SOUNDS: S1 normal heart sound present and S2 normal heart sound present GI: COMMON NORMALS: Normal to inspection, nondistended, normoactive bowel sounds present and non-tender Extremity: COMMON NORMALS: no pedal edema NARRATIVE EXTREMITY EXAM: Right toe, has a bluish hue Neuro: COMMON NORMALS: patient oriented x3 Psych: COMMON NORMALS: mental status grossly normal Data 12/03/23 04:20 12/03/23 04:20 A&P Assessment and plan (1) Hypertension: Qualifiers: Hypertension type: essential hypertension Qualified Code(s): I10 - Essential (primary) hypertension (2) Left subclavian artery occlusion: (3) Peripheral arterial disease: (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: (5) Type 2 diabetes mellitus: Qualifiers: Diabetes mellitus terminal operator insulin use: without shelter use Diabetes mellitus complication status: without complication Qualified Code(s): E11.9 - Type 2 diabetes mellitus without complications (6) Hyperdense renal cyst: (7) Pneumonia: Qualifiers: Laterality: right Lung location: lower lobe of lung Pneumonia type: d ue to unspecified organism Qualified Code(s): J18.9 - Pneumonia, unspecified organism (8) Pulmonary vascular congestion: (9) Acute worsening of stage 3 chronic kidney disease: (10) Acute lower limb ischemia: Plan Community-acquired pneumonia De-escalate antibiotics to doxycycline Patient endorsing low-grade fever at home 99.7 No signs of confusion, no fever or sepsis Acute preserved ejection fraction CHF exacerbation Elevated creatinine, hold diuresis for today Patient looks mildly fluid overloaded Blue toe syndrome Has seen Dr. Brown in the past who has started him on anticoagulating agent Eliquis Plan for aorta with runoff once creatinine is stable, However today has severe rest pain, severe intractable pain, increased hypersensitivity to touch, continues to have a blue toe, a bit more of a bluish hue today compared to yesterday, continues to have pulses palpable on the right although slightly diminished ? Concerns for developing acute on chronic limb ischemia ? ROBYN is 0.4 on the right ? Spoke to cardiology, will consult, ? Switch to heparin drip, ? Continue aspirin, Eliquis, add cilostazol ? Have increased oxycodone 5 mg 1 to 2 tablets every 4 hours as needed Acute on chronic limb ischemia Intractable pain Good DP and PT pulses bilaterally no Ischemic ulcers Oxycodone for pain control as above Acute on chronic kidney disease stage III Mild exacerbation related to cardiorenal syndrome Creatinine up to 1.9, nephrology consulted Patient lives at home Fairly active for his age Full code Cardiac diet/ Plan for today monitor creatinine, n.p.o. midnight for possible peripheral angiogram tomorrow, continue heparin drip Attestations 2 Medical Necessity Statement*: Patient requires hospitalization for acute on chronic chronic limb ischemia Diagnoses Essential hypertension I10 Hypertension type: essential hypertension Left subclavian artery occlusion I70.8 Peripheral arterial disease I73.9 Embolism and thrombosis of arteries of the lower extremities I74.3 Type 2 diabetes mellitus without complication, without long-term current use of insulin E11.9 Diabetes mellitus terminal operator insulin use: without terminal operator use Diabetes mellitus complication status: without complication Hyperdense renal cyst N28.1 Pneumonia J18.9 Laterality: right Lung location: lower lobe of lung Pneumonia type: due to unspecified organism Pulmonary vascular congestion R09.89 Acute worsening of stage 3 chronic kidney disease N18.30 Acute lower limb ischemia I99.8
[2023-12-03] MEDS: hyDRALAzine 10 mg Tablet 25 MG PO ×2 (14:09→21:28)
--- NOTE | 2023-12-03 14:10 | P.PN_ITS ---
Subjective 2 Subjective: Patient is overall stable. Creatinine has improved to 1.9 today. Vitals/I&O/Wt Last Vital Signs Temp 98.4 F 12/03/23 11:19 Pulse 78 12/03/23 11:19 Resp 16 12/03/23 11:19 BP 154/55 12/03/23 11:19 Pulse Ox 94 12/03/23 11:19 O2 Del Method Room Air 12/03/23 11:19 O2 Flow Rate 2 11/29/23 08:00 12/02/23 12/03/23 12/03/23 22:59 06:59 14:59 Intake Total 189.583 / 1535.183 92.866 / 1628.049 215.9 / 215.9 Output Total 525 / 1225 350 / 1575 Balance -335.417 / 310.183 -257.134 / 53.049 215.9 / 215.9 Weight last 48 hrs Weight 165 lb 7 oz Weight 162 lb 8 oz Physical Exam 2 Narrative: GENERAL: Patient is alert, awake and oriented x3. [] NECK: No jugular vein distension. [] HEENT: No cyanosis. No icterus. No pallor. [] HEART: Regular S1 and S2. No murmur, rub or gallop. [] LUNGS: Clear to auscultate bilaterally. [] CENTRAL NERVOUS SYSTEM: Grossly nonfocal. [] EXTREMITIES: Lower extremities pulses palpabale. Right foot pulse is dopplerable. 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: (6) Type 2 diabetes mellitus: Qualifiers: Diabetes mellitus intermediate school teacher insulin use: without nursing home use Diabetes mellitus complication status: without complication Qualified Code(s): E11.9 - Type 2 diabetes mellitus without complications (7) Hyperdense renal cyst: (8) Pneumonia: Qualifiers: Laterality: right Lung location: lower lobe of lung Pneumonia type: d ue to unspecified organism Qualified Code(s): J18.9 - Pneumonia, unspecified organism (9) Pulmonary vascular congestion: (10) Acute worsening of stage 3 chronic kidney disease: Plan Patient has a blue to that is intermittently painful. Creatinine is improving. Continue heparin gtt. If creatinine improves further or is stable by tomorrow, we will proceed with peripheral angiogram. ROBYN 0.4 on ultrasound. However pulses dopplerable on the foot and femoral pulses are bounding. Ultrasound suggestive of possibility of aortoiliac disease. It could have caused embolization downstream to the toe. Continue anticoagulation. Continue IV hydration. Nephrology on board. Thank you for involving us with care of this patient. we will continue to follow. Please call with questions. Attestations 2 Medical Necessity Statement*: Care expected to cross 2 midnights. Coding Level of Care Code Acute Code for [facility] Diagnoses Limb ischemia I99.8 Essential hypertension I10 Hypertension type: essential hypertension Left subclavian artery occlusion I70.8 Peripheral arterial disease I73.9 Embolism and thrombosis of arteries of the lower extremities I74.3 Type 2 diabetes mellitus without complication, without long-term current use of insulin E11.9 Diabetes mellitus nursing home insulin use: without intermediate school teacher use Diabetes mellitus complication status: without complication Hyperdense renal cyst N28.1 Pneumonia J18.9 Laterality: right Lung location: lower lobe of lung Pneumonia type: due to unspecified organism Pulmonary vascular congestion R09.89 Acute worsening of stage 3 chronic kidney disease N18.30
[2023-12-03] MEDS: sodium chloride 0.9% 1,000 ML 50 ML IV (17:47)
[2023-12-03] MEDS: tamsulosin 0.4 mg Capsule 0.800000000000000044 MG PO (21:29)
[2023-12-04] VITALS (12 sets, daily range): BP systolic 111–141; BP diastolic 43–80; PULSE 42–78; RESP 17–18; TEMP 36.6–37.4; O2SAT 90–95
[2023-12-04 00:13] LABS: Partial Thromboplastin Time 64.3 SECONDS (23.9-36.7)
[2023-12-04 05:30] LABS: Basophils % 0.1 %; Eosinophils # 0.1 10^3/uL (0.0-0.8); Eosinophils % 1.2 %; Hematocrit 27.4 % (37-53); Lymphocytes # 1.6 10^3/uL (0.8-4.8); Lymphocytes % 23.8 %; Mean Corpuscular HGB Conc 33.6 g/dL (30-55); Mean Corpuscular Hemoglobin 31.7 pg (27-33); Mean Corpuscular Volume 94.5 fl (82-101); Mean Platelet Volume 10.6 fL (7.4-10.4); Monocytes # 1.4 10^3/uL (0.2-0.9); Monocytes % 20.2 %; Neutrophils # 3.35 10^3/uL (1.8-7.7); Nucleated Red Blood Cells % 0 %; Platelet Count 164 10^3/cmm (157-399); Red Cell Distribution Width 11.7 % (12.1-15.1); White Blood Count 6.84 10^3/uL (3.29-11.43)
--- NOTE | 2023-12-04 05:42 | ECG_ITS ---
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 Measurements Intervals [place] Rate: 90 P: 57 AK: 148 QRS: 82 QRSD: 98 T: 31 QT: 337 QTc: 413 Interpretive Statements SINUS RHYTHM WITH FREQUENT VENTRICULAR PREMATURE COMPLEXES IN A BIGEMINAL PATTERN NONSPECIFIC ST & T-WAVE ABNORMALITY Compared to ECG 11/28/2023 18:23:13 Possible ischemia no longer present T-wave abnormality still present Electronically Signed On 12-04-2023 11:25:55 CDT by Raheel Guillen M.D. [id number]
[2023-12-04 05:46] LABS: Partial Thromboplastin Time 60.8 SECONDS (23.9-36.7)
[2023-12-04 05:51] LABS: Alanine Aminotransferase 11 U/L (0-41); Albumin Level 2.9 g/dL (3.5-5.2); Alkaline Phosphatase 68 U/L (40-130); Anion Gap 15.4 (5-19); Aspartate Amino Transferase 15 U/L (0-40); Blood Urea Nitrogen 60 mg/dL (8-23); Calcium 7.7 mg/dL (8.5-10.5); Carbon Dioxide 19 mmol/L (22-29); Chloride 113 mmol/L (98-107); Creatinine Clr Calc Pharmacy 27.0465; Globulin 1.7 g/dL (1.3-4.6); Glucose 129 mg/dL (65-115); Magnesium 2.4 mg/dL (1.7-2.3); Osmolality Calculated 315 mOsm/kg (285-295); Phosphorus 3.6 mg/dL (2.5-4.5); Potassium 4.4 mmol/L (3.5-5.1); Sodium 143 mmol/L (136-145); Total Bilirubin 0.2 mg/dL (0.15-1.2); Total Protein 4.6 g/dL (6.6-8.7)
[2023-12-04 06:02] LABS: NT Pro B Type Natriuretic Pept 8950 pg/mL (0-450)
[2023-12-04] MEDS: hyDRALAzine 10 mg Tablet 25 MG PO ×3 (06:14→22:40)
--- NOTE | 2023-12-04 06:51 | PM.PN ---
Subjective Subjective: Patient still has foot pain. Has increased redness today. Renal function worsened today. Patient does not want to have angiogram till renal function is back to baseline. Understands risks with it. Vitals/I&O/Wt Last Vital Signs Temp 99.4 F 12/04/23 03:32 Pulse 42 L 12/04/23 05:59 Resp 18 12/04/23 03:32 BP 136/45 12/04/23 05:59 Pulse Ox 94 12/04/23 03:32 O2 Del Method Room Air 12/04/23 03:32 O2 Flow Rate 2 11/29/23 08:00 12/03/23 12/03/23 12/04/23 14:59 22:59 06:59 Intake Total 215.9 / 215.9 1443.333 / 1659.233 187 / 1846.233 Output Total 200 / 200 Balance 215.9 / 215.9 1243.333 / 1459.233 187 / 1646.233 Weight last 48 hrs Weight 167 lb 2 oz Weight 165 lb 7 oz Physical Exam Narrative: GENERAL: Patient is alert, awake and oriented x3. [] NECK: No jugular vein distension. [] HEENT: No cyanosis. No icterus. No pallor. [] HEART: Regular S1 and S2. No murmur, rub or gallop. [] LUNGS: Clear to auscultate bilaterally. [] CENTRAL NERVOUS SYSTEM: Grossly nonfocal. [] EXTREMITIES: Lower extremities pulses palpabale. Right foot pulse is dopplerable. Right big toe has bluish discoloration. Has some redness on the foot around it. 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: (6) Type 2 diabetes mellitus: Qualifiers: Diabetes mellitus custodial insulin use: without terminal system operator use Diabetes mellitus complication status: without complication Qualified Code(s): E11.9 - Type 2 diabetes mellitus without complications (7) Hyperdense renal cyst: (8) Pneumonia: Qualifiers: Laterality: right Lung location: lower lobe of lung Pneumonia type: due to unspecified organism Qualified Code(s): J18.9 - Pneumonia, unspecified organism (9) Pulmonary vascular congestion: (10) Acute worsening of stage 3 chronic kidney disease: Plan Will hold off on peripheral angiogram as clinical functions worsen. And patient does not want to accept risk of renal function worsening. He understands risk of not proceeding with angiogram. ROBYN 0.4 on ultrasound. However pulses dopplerable on the foot and femoral pulses are bounding. Ultrasound suggestive of possibility of aortoiliac disease. It could have caused embolization downstream to the toe. Continue anticoagulation. Continue IV hydration. Nephrology on board. Thank you for involving us with care of this patient. we will continue to follow. Please call with questions. Attestations Medical Necessity Statement*: Care expected to cross 2 midnights. Coding Level of Care Code Acute Code for [facility] Diagnoses Limb ischemia I99.8 Essential hypertension I10 Hypertension type: essential hypertension Left subclavian artery occlusion I70.8 Peripheral arterial disease I73.9 Embolism and thrombosis of arteries of the lower extremities I74.3 Type 2 diabetes mellitus without complication, without long-term current use of insulin E11.9 Diabetes mellitus terminal system operator insulin use: without terminal system operator use Diabetes mellitus complication status: without complication Hyperdense renal cyst N28.1 Pneumonia J18.9 Laterality: right Lung location: lower lobe of lung Pneumonia type: due to unspecified organism Pulmonary vascular congestion R09.89 Acute worsening of stage 3 chronic kidney disease N18.30
--- NOTE | 2023-12-04 07:31 | PC.NURSE ---
DOROTHY HR pt had low HR for midnight and 4am vs, rfp writer checked hr at 0545. was still low 40's, bp was WNL. pt asked for help to stand at bedside and use urinal, rfp writer helped pt to stand and immediately after the pt requested to sit down stating that he felt weak like he was going to pass out. pt sat, order put in for ekg per protocol. ekg showed bigeminy. notified, no further orders other than to ensure magnesium was drawn, which was with morning labs. pt hr has come up to 80s currently and pt is feeling better.
[2023-12-04] MEDS: cilostazol 100 mg Tablet 50 MG PO ×2 (09:22→16:31)
[2023-12-04] MEDS: aspirin 81 mg EC Tablet PO (09:23)
[2023-12-04] MEDS: atorvastatin 40 mg Tablet 80 MG PO (09:23)
[2023-12-04] MEDS: sennosides-docusate Tablet 1 TAB PO (09:23)
[2023-12-04] MEDS: doxycycline 100 mg Tablet PO (09:23)
[2023-12-04] MEDS: oxyCODONE 5 mg IR Tab/Cap PO ×3 (09:33→20:29)
--- NOTE | 2023-12-04 10:09 | P.PN_ITS ---
Subjective 2 Subjective: denies any complaints Medications: Reviewed: Yes Vitals/I&O/Wt Last Vital Signs Temp 98.3 F 12/04/23 08:00 Pulse 55 L 12/04/23 08:00 Resp 17 12/04/23 09:33 BP 137/43 12/04/23 08:00 Pulse Ox 92 12/04/23 09:33 O2 Del Method Room Air 12/04/23 03:32 O2 Flow Rate 2 11/29/23 08:00 12/03/23 12/04/23 12/04/23 22:59 06:59 14:59 Intake Total 1443.333 / 1659.233 187 / 1846.233 918.833 / 918.833 Output Total 200 / 200 Balance 1243.333 / 1459.233 187 / 1646.233 918.833 / 918.833 Weight last 48 hrs Weight 75.807 kg Weight 75.041 kg Physical Exam 2 Const: COMMON NORMALS: no acute distress and alert Extremity: NARRATIVE EXTREMITY EXAM: no edema, discolored right great toe Neuro: SENSORIUM/ORIENTATION: Yes alert Data 12/04/23 05:21 12/04/23 05:21 Micro: Microbiology 11/28/23 18:40 Blood Culture - Final Blood NO GROWTH AFTER 5 DAYS 11/28/23 18:40 Blood Culture - Final Blood NO GROWTH AFTER 5 DAYS A&P Assessment and plan (1) Acute kidney injury: Plan 1. Acute kidney injury: renal function slightly worse today , 2. 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 Nephrotic range proteinuria, hypoalbuminemia 3. Hypokalemia: resolved 4. Pneumonia: improved 5. Peripheral artery disease with ischemia left foot, will need arteriogram. , Recommend: continue IVF hydration- ordered bicarb gtt and IV albumin , hold off on until renal fxn better /stable Attestations 2 Medical Necessity Statement*: per medicine Coding Level of Care Code Acute Code for [facility] Diagnoses Acute kidney injury N17.9
[2023-12-04] MEDS: heparin drip 25,000 UNIT/500 ML PREMIX 15 UNIT IV (11:50)
[2023-12-04] MEDS: albumin 25 G/100 ML BAG 60 G IV ×2 (11:51→18:16)
[2023-12-04 12:18] LABS: Partial Thromboplastin Time 55.3 SECONDS (23.9-36.7)
[2023-12-04] MEDS: HYDROmorphone 1 mg/mL INJ 1 mL IVP ×2 (13:14→22:40)
[2023-12-04] MEDS: sodium bicarbonate 150 MEQ in dextrose 5% 1,000 ML 75 MEQ IV (13:18)
--- NOTE | 2023-12-04 13:18 | PC.SOCIAL ---
IMM Update pg 2 of IMM updated and reviewed w/ patient. Copy provided and copy dated, initialed and placed in chart.
[2023-12-04] MEDS: linezolid premix 600 MG/300 ML PREMIX 300 MG IV (13:19)
--- NOTE | 2023-12-04 13:19 | PC.SOCIAL ---
IMM Update pg 2 of IMM updated and reviewed w/ patient. copy provided and copy dated, initialed and placed in chart.
--- NOTE | 2023-12-04 13:58 | P.PN_ITS ---
Subjective 2 Subjective: Patient was seen this morning, I had an extensive discussion with him about his creatinine, it is up to 2.3 today, discussed morbidity and mortality associated with peripheral angio gram with possible stent placement, with a creatinine of 2.3 has a high risk of dialysis, the goal would be to optimize him, however his creatinine does fluctuate he continues to have now severe pain in his right foot he is developing erythema along his right great toe, continues to have good Doppler pulses, the oxycodone is not helping him anymore, we discussed trying Dilaudid, discussed morbidity and mortality associated with acute limb ischemia although I think that he has a component of chronic limb ischemia, there is always a risk of ischemia to tissue, risk of amputation, he voiced understanding, all questions answered for now he wants to delay the procedure is much as he can so we can optimize his kidney function, but he wants to have a discussion with his brother at bedside, Vitals/I&O/Wt Last Vital Signs Temp 98.6 F 12/04/23 12:00 Pulse 78 12/04/23 12:00 Resp 17 12/04/23 13:14 BP 134/80 12/04/23 12:00 Pulse Ox 92 12/04/23 13:14 O2 Del Method Room Air 12/04/23 03:32 O2 Flow Rate 2 11/29/23 08:00 12/03/23 12/04/23 12/04/23 22:59 06:59 14:59 Intake Total 1443.333 / 1659.233 187 / 1846.233 989.583 / 989.583 Output Total 200 / 200 Balance 1243.333 / 1459.233 187 / 1646.233 989.583 / 989.583 Weight last 48 hrs Weight 75.807 kg Weight 75.041 kg Physical Exam 2 Const: COMMON NORMALS: no acute distress and patient oriented x3 Resp: COMMON NORMALS: normal respiratory effort, No retractions, No use of accessory muscles and clear to auscultation bilaterally AUSCULTATION: clear to auscultation bilaterally Cardio: COMMON NORMALS: regular rate, regular rhythm, S1 normal heart sound present and S2 normal heart sound present RATE: regular rate RHYTHM: r egular rhythm HEART SOUNDS: S1 normal heart sound present and S2 normal heart sound present GI: COMMON NORMALS: Normal to inspection, nondistended, normoactive bowel sounds present and non-tender Extremity: COMMON NORMALS: no pedal edema NARRATIVE EXTREMITY EXAM: Right toe, continues to have bluish hue, at the base he has area of erythema, extending about 2 cm x 2 cm, irregular borders quite tender to touch good DP PT pulses Neuro: COMMON NORMALS: patient oriented x3 Psych: COMMON NORMALS: mental status grossly normal Data 12/04/23 05:21 12/04/23 05:21 Micro: Microbiology 11/28/23 18:40 Blood Culture - Final Blood NO GROWTH AFTER 5 DAYS 11/28/23 18:40 Blood Culture - Final Blood NO GROWTH AFTER 5 DAYS A&P Assessment and plan (1) Hypertension: Qualifiers: Hypertension type: essential hypertension Qualified Code(s): I10 - Essential (primary) hypertension (2) Left subclavian artery occlusion: (3) Peripheral arterial disease: (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: (5) Type 2 diabetes mellitus: Qualifiers: Diabetes mellitus ferry terminal supervisor insulin use: without ferry terminal supervisor use Diabetes mellitus complication status: without complication Qualified Code(s): E11.9 - Type 2 diabetes mellitus without complications (6) Hyperdense renal cyst: (7) Pneumonia: Qualifiers: Laterality: right Lung location: lower lobe of lung Pneumonia type: d ue to unspecified organism Qualified Code(s): J18.9 - Pneumonia, unspecified organism (8) Pulmonary vascular congestion: (9) Acute worsening of stage 3 chronic kidney disease: (10) Acute lower limb ischemia: Plan Community-acquired pneumonia De-escalate antibiotics to doxycycline Patient endorsing low-grade fever at home 99.7 No signs of confusion, no fever or sepsis Acute preserved ejection fraction CHF exacerbation Elevated creatinine, hold diuresis for today Patient looks mildly fluid overloaded Blue toe syndrome Has seen Dr. Brown in the past who has started him on anticoagulating agent Eliquis Plan for aorta with runoff once creatinine is stable, Now with more erythema, extending down at the base of the toe, will start on broad-spectrum antibiotic therapy for concerns for cellulitis, ? Severe intractable pain, continue oxycodone, add on Dilaudid ? Concerns for developing acute on chronic limb ischemia ? ROBYN is 0.4 on the right ? Spoke to cardiology, will consult, ? Switch to heparin drip, ? Continue aspirin, Eliquis, add cilostazol ? Have increased oxycodone 5 mg 1 to 2 tablets every 4 hours as needed, will add on Dilaudid Acute on chronic limb ischemia Intractable pain Good DP and PT pulses bilaterally no Ischemic ulcers Oxycodone for pain control as above Acute on chronic kidney disease stage III Mild exacerbation related to cardiorenal syndrome Creatinine up to 1.9, nephrology consulted Patient lives at home Fairly active for his age Full code Cardiac diet/ Plan for today monitor creatinine, n.p.o. midnight for possible peripheral angiogram tomorrow, continue heparin drip, on bicarb drip, spoke to cardiology, spoke to nursing staff Attestations 2 Medical Necessity Statement*: Patient requires hospitalization for concerns for acute on chronic limb ischemia, severe intractable pain, blue toe syndrome, [facility] Diagnoses Essential hypertension I10 Hypertension type: essential hypertension Left subclavian artery occlusion I70.8 Peripheral arterial disease I73.9 Embolism and thrombosis of arteries of the lower extremities I74.3 Type 2 diabetes mellitus without complication, without long-term current use of insulin E11.9 Diabetes mellitus ferry terminal supervisor insulin use: without ferry terminal supervisor use Diabetes mellitus complication status: without complication Hyperdense renal cyst N28.1 Pneumonia J18.9 Laterality: right Lung location: lower lobe of lung Pneumonia type: due to unspecified organism Pulmonary vascular congestion R09.89 Acute worsening of stage 3 chronic kidney disease N18.30 Acute lower limb ischemia I99.8
[2023-12-04] MEDS: cefepime 1,000 MG in sodium chloride 0.9% (plus) 50 ML 100 MG IV (16:32)
[2023-12-04 19:02] LABS: Partial Thromboplastin Time 50.2 SECONDS (23.9-36.7)
--- NOTE | 2023-12-04 19:05 | XRR_ITS ---
PROCEDURE INFORMATION: Exam: XR Chest Exam date and time: 12/04/2023 6:52 PM Age: 78 years old Clinical indication: Device placement; Picc; Additional info: Post picc insertion, channing placing on med-surg room 278-2. Will call when ready. TECHNIQUE: Imaging protocol: Radiologic exam of the chest. Views: 1 view. COMPARISON: CR XR chest 1V portable [id number] 11/28/2023 2:48 PM FINDINGS: Tubes, catheters and devices: Right PICC line terminates in the distal SVC. Lungs: Hazy bibasilar opacities, could reflect atelectasis versus infiltrates. Pleural spaces: Possible trace bilateral pleural effusions. No pneumothorax. Heart/Mediastinum: Unremarkable. No cardiomegaly. Bones/joints: Unremarkable. XR/XR chest 1V portable [id number] IMPRESSION: 1. Right PICC line in proper positioning. 2. Hazy bibasilar opacities, could reflect atelectasis versus infiltrates. 3. Possible trace bilateral pleural effusions.
--- NOTE | 2023-12-04 19:45 | PC.NURSE ---
Triple lumen PICC placed to right basilic vein. Referred to vascular access nurse due to need for incompatible infusates and poor access. Pt on heparin drip and will need multiple lab draws. Risks and benefits discussed and informed consent obtained from patient. Right arm assessed with right basilic vein measuring 4.0 mm, straight, and apparent best choice for placement. Using sterile technique and MST, right basilic vein accessed x 1 stick. Mid-arm circumference measured 10 cm from right AC 26 cm. Trimmed cath 41 cm with 0 cm external length noted. CXR shows tip in distal SVC, in good position for use per radiologist. Line secured with stat-lock. Insertion site covered with Biopatch, gauze, and TSM. Report given to bedside nurseCindy.
[2023-12-04] MEDS: tamsulosin 0.4 mg Capsule 0.800000000000000044 MG PO (20:29)
[2023-12-04] MEDS: metoprolol tartrate 25 mg Tablet PO (20:29)
[2023-12-05] VITALS (13 sets, daily range): BP systolic 115–177; BP diastolic 46–65; PULSE 64–86; RESP 15–20; TEMP 36.4–36.7; O2SAT 91–95; BMI 27.4
[2023-12-05] MEDS: linezolid premix 600 MG/300 ML PREMIX 300 MG IV ×2 (01:03→12:58)
[2023-12-05 01:51] LABS: Basophils % 0.1 %; Eosinophils # 0.1 10^3/uL (0.0-0.8); Hematocrit 25.8 % (37-53); Lymphocytes # 1.7 10^3/uL (0.8-4.8); Mean Corpuscular HGB Conc 32.6 g/dL (30-55); Mean Corpuscular Hemoglobin 31.8 pg (27-33); Mean Corpuscular Volume 97.7 fl (82-101); Mean Platelet Volume 10.6 fL (7.4-10.4); Monocytes # 1.4 10^3/uL (0.2-0.9); Monocytes % 21.4 %; Neutrophils # 3.21 10^3/uL (1.8-7.7); Neutrophils % 48.2 %; Nucleated Red Blood Cells % 0 %; Platelet Count 154 10^3/cmm (157-399); Red Blood Count 2.64 10^6/uL (3.85-5.65); Red Cell Distribution Width 11.8 % (12.1-15.1); White Blood Count 6.68 10^3/uL (3.29-11.43)
[2023-12-05 02:10] LABS: Partial Thromboplastin Time 60.2 SECONDS (23.9-36.7)
[2023-12-05 02:17] LABS: Alanine Aminotransferase 14 U/L (0-41); Albumin Level 3.1 g/dL (3.5-5.2); Alkaline Phosphatase 63 U/L (40-130); Anion Gap 15.2 (5-19); Aspartate Amino Transferase 18 U/L (0-40); Blood Urea Nitrogen 62 mg/dL (8-23); Calcium 7.7 mg/dL (8.5-10.5); Carbon Dioxide 23 mmol/L (22-29); Chloride 107 mmol/L (98-107); Creatinine Clr Calc Pharmacy 27.0465; Globulin 2.3 g/dL (1.3-4.6); Glucose 193 mg/dL (65-115); Magnesium 2.4 mg/dL (1.7-2.3); Osmolality Calculated 315 mOsm/kg (285-295); Potassium 4.2 mmol/L (3.5-5.1); Sodium 141 mmol/L (136-145); Total Bilirubin 0.3 mg/dL (0.15-1.2); Total Protein 5.4 g/dL (6.6-8.7)
[2023-12-05 02:31] LABS: NT Pro B Type Natriuretic Pept 14169 pg/mL (0-450)
[2023-12-05] MEDS: albumin 25 G/100 ML BAG 60 G IV (02:35)
[2023-12-05] MEDS: oxyCODONE 5 mg IR Tab/Cap PO ×3 (02:43→22:54)
[2023-12-05] MEDS: hyDRALAzine 10 mg Tablet 25 MG PO ×3 (06:11→21:11)
--- NOTE | 2023-12-05 07:04 | P.PN_ITS ---
Subjective 2 Subjective: Patient has blue right big toe with minimal improvement. Also has intermittent discomfort. However has stronger dorsalis pedis and posterior tibial artery Doppler signals. Vitals/I&O/Wt Last Vital Signs Temp 98.1 F 12/05/23 03:42 Pulse 72 12/05/23 03:42 Resp 18 12/05/23 03:42 BP 115/58 12/05/23 06:12 Pulse Ox 91 12/05/23 03:42 O2 Del Method Room Air 12/05/23 03:42 O2 Flow Rate 2 11/29/23 08:00 12/04/23 12/05/23 12/05/23 22:59 06:59 14:59 Intake Total 1528.25 / 2877.833 1171.25 / 4049.083 Output Total 250 / 250 Balance 1528.25 / 2877.833 921.25 / 3799.083 Weight last 48 hrs Weight 175 lb 6.4 oz Weight 167 lb 2 oz Physical Exam 2 Narrative: GENERAL: Patient is alert, awake and oriented x3. [] NECK: No jugular vein distension. [] HEENT: No cyanosis. No icterus. No pallor. [] HEART: Regular S1 and S2. No murmur, rub or gallop. [] LUNGS: Clear to auscultate bilaterally. [] CENTRAL NERVOUS SYSTEM: Grossly nonfocal. [] EXTREMITIES: Lower extremities pulses palpabale. Right foot pulse is dopplerable. Right big toe has bluish discoloration. Has some redness on the foot around it. 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 Stronger DP and posterior tibial artery biphasic doppler signals. Pulse also palpable today. Patient has developed volume overload. Stop IV hydration. Can start diuresis. Monitor renal function. Patient wants to hold off on angiogram. With improving pulses, can continue to manage medically. Continue anticoagulation with heparin. Thank you for involving us with care of this patient. we will continue to follow. Please call with questions. Attestations 2 Medical Necessity Statement*: Care expected to cross 2 midnights. 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
[2023-12-05] MEDS: HYDROmorphone 1 mg/mL INJ 1 mL IVP ×2 (07:10→15:45)
--- NOTE | 2023-12-05 07:28 | XR_ITS ---
WS: [id number] Exam: XR chest 1V portable [id number] Date/Time of Exam: 12/05/2023 7:51 AM Reason For Exam: bloody sputum Comparison 11/28/2023. The lungs are fully expanded. No consolidating infiltrates. There is pulmonary vascular congestion th at may indicate mild fluid overload. There are chronic interstitial changes throughout both lungs. Pu lmonary hyperinflation. No pleural effusion or pneumothorax. Normal cardiomediastinal silhouette. Rig ht-sided PICC line ends in the lower one third of the SVC. IMPRESSION: 1. Pulmonary vascular congestion and diffuse interstitial infiltrates which may indicate mild cardiac decompensation. Fluid overload might be considered. 2. Extensive chronic interstitial changes and pulmonary hyperinflation.
[2023-12-05] MEDS: atorvastatin 40 mg Tablet 80 MG PO (09:12)
[2023-12-05] MEDS: cilostazol 100 mg Tablet 50 MG PO ×2 (09:12→17:36)
[2023-12-05] MEDS: FUROsemide 10 mg/mL SDV 4mL 40 MG IVP ×2 (09:12→17:36)
[2023-12-05] MEDS: aspirin 81 mg EC Tablet PO (09:13)
[2023-12-05] MEDS: metoprolol tartrate 25 mg Tablet PO ×2 (09:13→21:12)
[2023-12-05 09:51] LABS: Ferritin 260 ng/mL (30-400); Iron 43 ug/dL (59-158); Percent Saturation 28.8 % (20-50); Total Iron Binding Capacity 149 mcg/dl; Unsaturated Iron Binding 106 ug/dL (112-347)
[2023-12-05 10:05] LABS: Partial Thromboplastin Time 34.2 SECONDS (23.9-36.7)
[2023-12-05 11:38] LABS: Partial Thromboplastin Time 35.3 SECONDS (23.9-36.7)
[2023-12-05 12:41] LABS: Hematocrit 26.6 % (37-53)
[2023-12-05] MEDS: acetaminophen 500 mg Tablet PO (14:03)
[2023-12-05] MEDS: cefepime 1,000 MG in sodium chloride 0.9% (plus) 50 ML 100 MG IV (14:03)
--- NOTE | 2023-12-05 16:42 | P.PN_ITS ---
Subjective 2 Subjective: Patient was seen this morning early this morning, patient had episode of scant hemoptysis associated with severe coughing, his heparin drip was stopped no recurrent hemoptysis, he denies a prior history of hemoptysis, currently on 4 L, not reporting shortness of breath he has diffuse crackles on examination, we discussed his elevated creatinine, currently he is not an ideal candidate for peripheral angiogram with intervention given his creatinine, and his respiratory failure, he has good pulses, he is likely developing fluid overload with the IV fluids he is receiving to help with his kidney function, plan would be to diurese him today help him with his respiratory failure keep an eye on his kidney function, he is agreeable, in terms of anticoagulant therapy, certainly this is a difficult situation, on the 1 hand he has a risk of worsening hemoptysis, but on the other hand he has a increased risk of developing worsening PAD and lower limb ischemia, discussed risks of holding anticoagulation, for the next few hours, if he is hemoptysis resolves, he does not have any recurrent episodes, hemoglobin stable resume anticoagulation, discussed risk and benefits, discussed morbidity and mortality, he voiced understanding, all questions answered, agreed to proceed, spoke to cardiology, spoke to nephrology will diurese today Vitals/I&O/Wt Last Vital Signs Temp 97.5 F L 12/05/23 10:36 Pulse 64 12/05/23 10:36 Resp 16 12/05/23 15:45 BP 146/54 12/05/23 10:36 Pulse Ox 94 12/05/23 10:36 O2 Del Method Nasal Cannula 12/05/23 10:36 O2 Flow Rate 3 12/05/23 10:36 12/05/23 12/05/23 12/05/23 06:59 14:59 22:59 Intake Total 1171.25 / 4049.083 542.533 / 542.533 Output Total 250 / 250 1050 / 1050 Balance 921.25 / 3799.083 -507.467 / -507.467 Weight last 48 hrs Weight 79.56 kg Weight 75.807 kg Physical Exam 2 Const: COMMON NORMALS: no acute distress and patient oriented x3 Resp: COMMON NORMALS: normal respiratory effort, No retractions and No use of accessory muscles AUSCULTATION: crackles Cardio: COMMON NORMALS: regular rate, regular rhythm, S1 normal heart sound present and S2 normal heart sound present RATE: regular rate RHYTHM: r egular rhythm HEART SOUNDS: S1 normal heart sound present and S2 normal heart sound present GI: COMMON NORMALS: Normal to inspection, nondistended, normoactive bowel sounds present and non-tender Extremity: COMMON NORMALS: no pedal edema NARRATIVE EXTREMITY EXAM: Right toe bluish hue with erythema extending below the toe, DP PT pulses palpable Neuro: COMMON NORMALS: patient oriented x3 Psych: COMMON NORMALS: mental status grossly normal Data 12/05/23 12:28 12/05/23 01:41 A&P Assessment and plan (1) Hypertension: Qualifiers: Hypertension type: essential hypertension Qualified Code(s): I10 - Essential (primary) hypertension (2) Left subclavian artery occlusion: (3) Peripheral arterial disease: (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: (5) Type 2 diabetes mellitus: Qualifiers: Diabetes mellitus long term care administrator insulin use: without custodial use Diabetes mellitus complication status: without complication Qualified Code(s): E11.9 - Type 2 diabetes mellitus without complications (6) Hyperdense renal cyst: (7) Pneumonia: Qualifiers: Laterality: right Lung location: lower lobe of lung Pneumonia type: d ue to unspecified organism Qualified Code(s): J18.9 - Pneumonia, unspecified organism (8) Pulmonary vascular congestion: (9) Acute worsening of stage 3 chronic kidney disease: (10) Acute lower limb ischemia: (11) Cellulitis: (12) Hemoptysis: Plan Community-acquired pneumonia De-escalate antibiotics to doxycycline, currently on cefepime and Zyvox due to cellulitis concerns below Patient endorsing low-grade fever at home 99.7 No signs of confusion, no fever or sepsis Acute preserved ejection fraction CHF exacerbation, doubt exacerbation secondary to fluid overload Lasix 40 mg IV twice daily Patient looks mildly fluid overloaded Blue toe syndrome Has seen Dr. Brown in the past who has started him on anticoagulating agent Eliquis Plan for aorta with runoff once creatinine is stable, Now with more erythema, extending down at the base of the toe, will start on broad-spectrum antibiotic therapy for concerns for cellulitis, ? Severe intractable pain, continue oxycodone, add on Dilaudid ? Concerns for developing acute on chronic limb ischemia ? ROBYN is 0.4 on the right ? Spoke to cardiology, will consult, ? Due to scant hemoptysis, heparin drip on hold will resume based on clinical progress ? Continue aspirin, Eliquis, add cilostazol ? Have increased oxycodone 5 mg 1 to 2 tablets every 4 hours as needed, will add on Dilaudid Acute on chronic limb ischemia Intractable pain Good DP and PT pulses bilaterally no Ischemic ulcers Oxycodone for pain control as above Acute on chronic kidney disease stage III Mild exacerbation related to cardiorenal syndrome Creatinine up to 1.9, nephrology consulted Patient lives at home Fairly active for his age Full code Cardiac diet/ Patient was seen this morning early this morning, patient had episode of scant hemoptysis associated with severe coughing, his heparin drip was stopped no recurrent hemoptysis, he denies a prior history of hemoptysis, currently on 4 L, not reporting shortness of breath he has diffuse crackles on examination, we discussed his elevated creatinine, currently he is not an ideal candidate for peripheral angiogram with intervention given his creatinine, and his respiratory failure, he has good pulses, he is likely developing fluid overload with the IV fluids he is receiving to help with his kidney function, plan would be to diurese him today help him with his respiratory failure keep an eye on his kidney function, he is agreeable, in terms of anticoagulant therapy, certainly this is a difficult situation, on the 1 hand he has a risk of worsening hemoptysis, but on the other hand he has a increased risk of developing worsening PAD and lower limb ischemia, discussed risks of holding anticoagulation, for the next few hours, if he is hemoptysis resolves, he does not have any recurrent episodes, hemoglobin stable resume anticoagulation, discussed risk and benefits, discussed morbidity and mortality, he voiced understanding, all questions answered, agreed to proceed, spoke to cardiology, spoke to nephrology will diurese today, add on antitussives for cough Attestations 2 Medical Necessity Statement*: Patient requires hospitalization for fluid overload CHF exacerbation requiring IV diuresis, elevated creatinine, blue toe syndrome with cellulitis, with scant hemoptysis Diagnoses Essential hypertension I10 Hypertension type: essential hypertension Left subclavian artery occlusion I70.8 Peripheral arterial disease I73.9 Embolism and thrombosis of arteries of the lower extremities I74.3 Type 2 diabetes mellitus without complication, without long-term current use of insulin E11.9 Diabetes mellitus long term care administrator insulin use: without custodial use Diabetes mellitus complication status: without complication Hyperdense renal cyst N28.1 Pneumonia J18.9 Laterality: right Lung location: lower lobe of lung Pneumonia type: due to unspecified organism Pulmonary vascular congestion R09.89 Acute worsening of stage 3 chronic kidney disease N18.30 Acute lower limb ischemia I99.8 Cellulitis L03.90 Hemoptysis R04.2
[2023-12-05 18:50] LABS: Hematocrit 28.1 % (37-53)
[2023-12-05 19:36] LABS: Partial Thromboplastin Time 39.4 SECONDS (23.9-36.7)
[2023-12-05 21:04] LABS: Hematocrit 26.2 % (37-53)
[2023-12-05] MEDS: tamsulosin 0.4 mg Capsule 0.800000000000000044 MG PO (21:12)
--- NOTE | 2023-12-05 23:05 | PM.PN ---
Subjective Subjective: feels better Medications: Reviewed: Yes Vitals/I&O/Wt Last Vital Signs Temp 97.9 F 12/05/23 20:48 Pulse 71 12/05/23 20:48 Resp 20 H 12/05/23 22:54 BP 177/53 12/05/23 20:48 Pulse Ox 94 12/05/23 20:48 O2 Del Method Nasal Cannula 12/05/23 20:48 O2 Flow Rate 3 12/05/23 20:09 12/05/23 12/05/23 12/06/23 14:59 22:59 06:59 Intake Total 542.533 / 542.533 120 / 662.533 Output Total 1050 / 1050 600 / 1650 Balance -507.467 / -507.467 -480 / -987.467 Weight last 48 hrs Weight 79.56 kg Weight 75.807 kg Physical Exam Const: COMMON NORMALS: no acute distress and alert Extremity: NARRATIVE EXTREMITY EXAM: no edema, discolored right great toe Neuro: SENSORIUM/ORIENTATION: Yes alert Data 12/05/23 20:29 12/05/23 01:41 A&P Assessment and plan (1) Acute kidney injury: Plan 1. Acute kidney injury: renal function stable,\ PRN IV lasix 2. 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 Nephrotic range proteinuria, hypoalbuminemia 3. Hypokalemia: resolved 4. Pneumonia: improved 5. Peripheral artery disease with ischemia left foot, will need arteriogram. , Attestations Medical Necessity Statement*: per medicine Coding Level of Care Code Acute Code for [facility] Diagnoses Acute kidney injury N17.9
[2023-12-06] VITALS (11 sets, daily range): BP systolic 111–151; BP diastolic 46–68; PULSE 65–91; RESP 16–18; TEMP 36.6–36.8; O2SAT 91–96; BMI 26.2
[2023-12-06] MEDS: linezolid premix 600 MG/300 ML PREMIX 300 MG IV ×2 (00:15→12:46)
[2023-12-06 00:36] LABS: Hematocrit 25.5 % (37-53)
[2023-12-06 00:53] LABS: Partial Thromboplastin Time 34.7 SECONDS (23.9-36.7)
[2023-12-06] MEDS: heparin 5,000 unit/mL INJ 1 mL IV ×3 (01:10→16:21)
[2023-12-06] MEDS: HYDROmorphone 1 mg/mL INJ 1 mL IVP ×2 (01:42→12:15)
[2023-12-06] MEDS: hyDRALAzine 10 mg Tablet 25 MG PO ×3 (05:23→21:04)
[2023-12-06 07:20] LABS: Basophils % 0.1 %; Eosinophils # 0.2 10^3/uL (0.0-0.8); Lymphocytes # 1.4 10^3/uL (0.8-4.8); Mean Corpuscular Hemoglobin 31.8 pg (27-33); Mean Corpuscular Volume 96.4 fl (82-101); Mean Platelet Volume 10.7 fL (7.4-10.4); Monocytes # 1.7 10^3/uL (0.2-0.9); Neutrophils # 4.18 10^3/uL (1.8-7.7); Neutrophils % 52.8 %; Nucleated Red Blood Cells % 0 %; Platelet Count 203 10^3/cmm (157-399); Red Cell Distribution Width 11.6 % (12.1-15.1); White Blood Count 7.91 10^3/uL (3.29-11.43)
--- NOTE | 2023-12-06 07:25 | PM.PN ---
Subjective Subjective: Patient's toe has improved some. Not as painful. Bluish discoloration has also improved. Renal function is still abnormal. Vitals/I&O/Wt Last Vital Signs Temp 98 F 12/06/23 04:00 Pulse 75 12/06/23 04:00 Resp 16 12/06/23 04:00 BP 129/51 12/06/23 04:00 Pulse Ox 91 12/06/23 04:00 O2 Del Method Nasal Cannula 12/06/23 04:00 O2 Flow Rate 3 12/05/23 20:09 12/05/23 12/06/23 12/06/23 22:59 06:59 14:59 Intake Total 120 / 662.533 579.8 / 1242.333 Output Total 600 / 1650 600 / 2250 Balance -480 / -987.467 -20.2 / -1007.667 Weight last 48 hrs Weight 167 lb Weight 175 lb 6.4 oz Physical Exam Narrative: GENERAL: Patient is alert, awake and oriented x3. [] NECK: No jugular vein distension. [] HEENT: No cyanosis. No icterus. No pallor. [] HEART: Regular S1 and S2. No murmur, rub or gallop. [] LUNGS: Clear to auscultate bilaterally. [] CENTRAL NERVOUS SYSTEM: Grossly nonfocal. [] EXTREMITIES: Lower extremities pulses palpabale. Right foot pulse is dopplerable. Right big toe has bluish discoloration. Has some redness on the foot around it. Data 12/08/23 04:17 12/08/23 04:17 A&P Assessment and plan (1) Limb ischemia: (2) Hypertension: Qualifiers: Hypertension type: essential hypertension Qualified Code(s): I10 - Essential (primary) hypertension (3) Left subclavian artery occlusion: (4) Peripheral arterial disease: (5) Embolism and thrombosis of arteries of the lower extremities: (6) Type 2 diabetes mellitus: Qualifiers: Diabetes mellitus termite treater helper insulin use: without fpc use Diabetes mellitus complication status: without complication Qualified Code(s): E11.9 - Type 2 diabetes mellitus without complications (7) Hyperdense renal cyst: (8) Pneumonia: Qualifiers: Laterality: right Lung location: lower lobe of lung Pneumonia type: due to unspecified organism Qualified Code(s): J18.9 - Pneumonia, unspecified organism (9) Pulmonary vascular congestion: (10) Acute worsening of stage 3 chronic kidney disease: Plan Patient's toe looks slightly improved. Continue anticoagulation with heparin. Will recommend ambulation As needed Lasix. Thank you for involving us with care of this patient. we will continue to follow. Please call with questions. Attestations Medical Necessity Statement*: Care expected to cross 2 midnights. Coding Level of Care Code Acute Code for [facility] Fwd Diagnoses Limb ischemia I99.8 Essential hypertension I10 Hypertension type: essential hypertension Left subclavian artery occlusion I70.8 Peripheral arterial disease I73.9 Embolism and thrombosis of arteries of the lower extremities I74.3 Type 2 diabetes mellitus without complication, without long-term current use of insulin E11.9 Diabetes mellitus fpc insulin use: without termite treater helper use Diabetes mellitus complication status: without complication Hyperdense renal cyst N28.1 Pneumonia J18.9 Laterality: right Lung location: lower lobe of lung Pneumonia type: due to unspecified organism Pulmonary vascular congestion R09.89 Acute worsening of stage 3 chronic kidney disease N18.30
[2023-12-06 07:34] LABS: Partial Thromboplastin Time 40.4 SECONDS (23.9-36.7)
[2023-12-06 07:42] LABS: Alanine Aminotransferase 13 U/L (0-41); Albumin Level 3.1 g/dL (3.5-5.2); Alkaline Phosphatase 67 U/L (40-130); Anion Gap 14.5 (5-19); Aspartate Amino Transferase 17 U/L (0-40); Blood Urea Nitrogen 52 mg/dL (8-23); Calcium 8.3 mg/dL (8.5-10.5); Carbon Dioxide 26 mmol/L (22-29); Chloride 106 mmol/L (98-107); Creatinine Clr Calc Pharmacy 25.9111; Globulin 2.4 g/dL (1.3-4.6); Glucose 135 mg/dL (65-115); Magnesium 2.3 mg/dL (1.7-2.3); Osmolality Calculated 312 mOsm/kg (285-295); Phosphorus 4.1 mg/dL (2.5-4.5); Potassium 3.5 mmol/L (3.5-5.1); Sodium 143 mmol/L (136-145); Total Bilirubin 0.8 mg/dL (0.15-1.2); Total Protein 5.5 g/dL (6.6-8.7)
[2023-12-06 07:44] LABS: Lactate (Lactic Acid level) 1.9 mmol/L (0.5-2.2)
[2023-12-06 07:51] LABS: Creatine Phosphokinase 43 U/L (39-308); NT Pro B Type Natriuretic Pept 8411 pg/mL (0-450)
[2023-12-06 08:01] LABS: Slide Review Slide Review Perform
[2023-12-06] MEDS: cilostazol 100 mg Tablet 50 MG PO ×2 (08:37→17:39)
[2023-12-06] MEDS: atorvastatin 40 mg Tablet 80 MG PO (08:37)
[2023-12-06] MEDS: aspirin 81 mg EC Tablet PO (08:38)
[2023-12-06] MEDS: metoprolol tartrate 25 mg Tablet PO ×2 (08:38→21:04)
[2023-12-06] MEDS: oxyCODONE 5 mg IR Tab/Cap PO ×2 (08:43→21:07)
[2023-12-06] MEDS: FUROsemide 10 mg/mL SDV 4mL 40 MG IVP ×2 (09:27→21:05)
--- NOTE | 2023-12-06 10:34 | PC.SOCIAL ---
IMM Update pg 2 of IMM updated and reviewed w/ patient. Copy provided and copy dated, initialed and placed in chart.
[2023-12-06] MEDS: cefepime 1,000 MG in sodium chloride 0.9% (plus) 50 ML 100 MG IV (14:04)
[2023-12-06 14:57] LABS: Partial Thromboplastin Time 38.8 SECONDS (23.9-36.7)
--- NOTE | 2023-12-06 15:31 | P.PN_ITS ---
Vitals/I&O/Wt Last Vital Signs Temp 98.2 F 12/06/23 12:00 Pulse 73 12/06/23 12:00 Resp 18 12/06/23 12:15 BP 151/54 12/06/23 12:00 Pulse Ox 92 12/06/23 12:00 O2 Del Method Nasal Cannula 12/06/23 12:00 O2 Flow Rate 3 12/06/23 08:35 12/06/23 12/06/23 12/06/23 06:59 14:59 22:59 Intake Total 579.8 / 6349.868 4413.683 / 1318.683 Output Total 600 / 2250 200 / 200 Balance -20.2 / -2068.258 3398.683 / 1118.683 Weight last 48 hrs Weight 75.75 kg Weight 79.56 kg Physical Exam 2 Const: COMMON NORMALS: no acute distress and patient oriented x3 Resp: COMMON NORMALS: normal respiratory effort, No retractions and No use of accessory muscles AUSCULTATION: crackles Cardio: COMMON NORMALS: regular rate, regular rhythm, S1 normal heart sound present and S2 normal heart sound present RATE: regular rate RHYTHM: r egular rhythm HEART SOUNDS: S1 normal heart sound present and S2 normal heart sound present GI: COMMON NORMALS: Normal to inspection, nondistended, normoactive bowel sounds present and non-tender Extremity: COMMON NORMALS: no pedal edema NARRATIVE EXTREMITY EXAM: right great toe is blue, slight erythema within marked borders Neuro: COMMON NORMALS: patient oriented x3 Psych: COMMON NORMALS: mental status grossly normal Data 12/06/23 07:00 12/06/23 07:00 A&P Assessment and plan (1) Hypertension: Qualifiers: Hypertension type: essential hypertension Qualified Code(s): I10 - Essential (primary) hypertension (2) Left subclavian artery occlusion: (3) Peripheral arterial disease: (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: (5) Type 2 diabetes mellitus: Qualifiers: Diabetes mellitus watermaster insulin use: without watermaster use Diabetes mellitus complication status: without complication Qualified Code(s): E11.9 - Type 2 diabetes mellitus without complications (6) Hyperdense renal cyst: (7) Pneumonia: Qualifiers: Laterality: right Lung location: lower lobe of lung Pneumonia type: d ue to unspecified organism Qualified Code(s): J18.9 - Pneumonia, unspecified organism (8) Pulmonary vascular congestion: (9) Acute worsening of stage 3 chronic kidney disease: (10) Acute lower limb ischemia: (11) Cellulitis: (12) Hemoptysis: Plan Community-acquired pneumonia De-escalate antibiotics to doxycycline, currently on cefepime and Zyvox due to cellulitis concerns below Patient endorsing low-grade fever at home 99.7 No signs of confusion, no fever or sepsis Acute preserved ejection fraction CHF exacerbation, doubt exacerbation secondary to fluid overload Lasix 40 mg IV twice daily, DIURESED 2.3L Patient looks mildly fluid overloaded Blue toe syndrome Has seen Dr. Brown in the past who has started him on anticoagulating agent Eliquis Plan for aorta with runoff once creatinine is stable, Now with more erythema, extending down at the base of the toe, will start on broad-spectrum antibiotic therapy for concerns for cellulitis, ? Severe intractable pain, continue oxycodone, add on Dilaudid ? Concerns for developing acute on chronic limb ischemia ? ROBYN is 0.4 on the right ? Spoke to cardiology, will consult, ? Due to scant hemoptysis, heparin drip on hold will resume based on clinical progress ? Continue aspirin, Eliquis, add cilostazol ? Have increased oxycodone 5 mg 1 to 2 tablets every 4 hours as needed, will add on Dilaudid Acute on chronic limb ischemia Intractable pain Good DP and PT pulses bilaterally no Ischemic ulcers Oxycodone for pain control as above Acute on chronic kidney disease stage III Mild exacerbation related to cardiorenal syndrome Creatinine up to 2.4, nephrology consulted acute on chronic -anemia 8.9 -will monitor -denies bloody or black stool hemoptysis, resolved Patient lives at home Fairly active for his age Full code Cardiac diet Attestations 2 Medical Necessity Statement*: patient requires hospitalization, for chf, fluid overload, acute on chronic limb ischemia Diagnoses Essential hypertension I10 Hypertension type: essential hypertension Left subclavian artery occlusion I70.8 Peripheral arterial disease I73.9 Embolism and thrombosis of arteries of the lower extremities I74.3 Type 2 diabetes mellitus without complication, without long-term current use of insulin E11.9 Diabetes mellitus watermaster insulin use: without senior care use Diabetes mellitus complication status: without complication Hyperdense renal cyst N28.1 Pneumonia J18.9 Laterality: right Lung location: lower lobe of lung Pneumonia type: due to unspecified organism Pulmonary vascular congestion R09.89 Acute worsening of stage 3 chronic kidney disease N18.30 Acute lower limb ischemia I99.8 Cellulitis L03.90 Hemoptysis R04.2
--- NOTE | 2023-12-06 15:52 | P.PN_ITS ---
Subjective 2 Subjective: feels better Medications: Reviewed: Yes Vitals/I&O/Wt Last Vital Signs Temp 98.2 F 12/06/23 12:00 Pulse 73 12/06/23 12:00 Resp 18 12/06/23 12:15 BP 151/54 12/06/23 12:00 Pulse Ox 92 12/06/23 12:00 O2 Del Method Nasal Cannula 12/06/23 12:00 O2 Flow Rate 3 12/06/23 08:35 12/06/23 12/06/23 12/06/23 06:59 14:59 22:59 Intake Total 579.8 / 2894.106 4365.683 / 1318.683 Output Total 600 / 2250 200 / 200 Balance -20.2 / -4920.912 0939.683 / 1118.683 Weight last 48 hrs Weight 75.75 kg Weight 79.56 kg Physical Exam 2 Const: COMMON NORMALS: no acute distress and alert Extremity: NARRATIVE EXTREMITY EXAM: no edema, discolored right great toe Neuro: SENSORIUM/ORIENTATION: Yes alert Data 12/06/23 07:00 12/06/23 07:00 A&P Assessment and plan (1) Acute kidney injury: Plan 1. Acute kidney injury: renal function stable PRN IV lasix 2. 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 Nephrotic range proteinuria, hypoalbuminemia 3. Hypokalemia: resolved 4. Pneumonia: improved 5. Peripheral artery disease with ischemia left foot, angiogram postponed due to CLOTILDE, plan to do in future Attestations 2 Medical Necessity Statement*: per miri Coding Level of Care Code Acute Code for [facility] Diagnoses Acute kidney injury N17.9
[2023-12-06] MEDS: heparin drip 25,000 UNIT/500 ML PREMIX 13 UNIT IV (19:05)
[2023-12-06] MEDS: tamsulosin 0.4 mg Capsule 0.800000000000000044 MG PO (21:04)
[2023-12-06 22:53] LABS: Partial Thromboplastin Time 115.8 SECONDS (23.9-36.7)
[2023-12-07] VITALS (13 sets, daily range): BP systolic 128–163; BP diastolic 48–54; PULSE 63–78; RESP 15–18; TEMP 36.4–36.9; O2SAT 91–95; BMI 26.2
[2023-12-07] MEDS: HYDROmorphone 1 mg/mL INJ 1 mL IVP (00:04)
[2023-12-07] MEDS: linezolid premix 600 MG/300 ML PREMIX 300 MG IV ×2 (01:18→13:40)
[2023-12-07] MEDS: oxyCODONE 5 mg IR Tab/Cap PO ×3 (04:25→20:42)
[2023-12-07 05:04] LABS: Basophils % 0.1 %; Eosinophils # 0.1 10^3/uL (0.0-0.8); Eosinophils % 1.4 %; Hematocrit 24.5 % (37-53); Lymphocytes # 1.6 10^3/uL (0.8-4.8); Lymphocytes % 21.5 %; Mean Corpuscular HGB Conc 33.5 g/dL (30-55); Mean Corpuscular Hemoglobin 31.4 pg (27-33); Mean Corpuscular Volume 93.9 fl (82-101); Mean Platelet Volume 10.4 fL (7.4-10.4); Monocytes # 1.6 10^3/uL (0.2-0.9); Monocytes % 21.2 %; Neutrophils % 53.3 %; Nucleated Red Blood Cells % 0 %; Platelet Count 206 10^3/cmm (157-399); Red Blood Count 2.61 10^6/uL (3.85-5.65); Red Cell Distribution Width 11.6 % (12.1-15.1); White Blood Count 7.31 10^3/uL (3.29-11.43)
[2023-12-07 05:18] LABS: Partial Thromboplastin Time 46.3 SECONDS (23.9-36.7)
[2023-12-07 05:26] LABS: Alanine Aminotransferase 12 U/L (0-41); Alkaline Phosphatase 63 U/L (40-130); Anion Gap 12.2 (5-19); Aspartate Amino Transferase 16 U/L (0-40); Blood Urea Nitrogen 53 mg/dL (8-23); C Reactive Protein 66.7 mg/L (0.0-4.9); Calcium 8.2 mg/dL (8.5-10.5); Carbon Dioxide 28 mmol/L (22-29); Chloride 105 mmol/L (98-107); Creatinine Clr Calc Pharmacy 24.8747; Globulin 2.4 g/dL (1.3-4.6); Glucose 151 mg/dL (65-115); Magnesium 2.2 mg/dL (1.7-2.3); Osmolality Calculated 311 mOsm/kg (285-295); Phosphorus 4.4 mg/dL (2.5-4.5); Potassium 3.2 mmol/L (3.5-5.1); Sodium 142 mmol/L (136-145); Total Bilirubin 0.7 mg/dL (0.15-1.2); Total Protein 5.4 g/dL (6.6-8.7)
[2023-12-07 05:27] LABS: Lactate (Lactic Acid level) 0.8 mmol/L (0.5-2.2)
[2023-12-07 05:37] LABS: Creatine Phosphokinase 56 U/L (39-308); NT Pro B Type Natriuretic Pept 5446 pg/mL (0-450)
[2023-12-07] MEDS: heparin 5,000 unit/mL INJ 1 mL IV ×3 (05:44→22:29)
[2023-12-07] MEDS: hyDRALAzine 10 mg Tablet 25 MG PO ×3 (05:45→22:10)
[2023-12-07] MEDS: atorvastatin 40 mg Tablet 80 MG PO (08:50)
[2023-12-07] MEDS: cilostazol 100 mg Tablet 50 MG PO ×2 (08:50→17:32)
[2023-12-07] MEDS: aspirin 81 mg EC Tablet PO (08:51)
[2023-12-07] MEDS: FUROsemide 10 mg/mL SDV 4mL 40 MG IVP (08:51)
[2023-12-07] MEDS: potassium chloride ER 20 mEq Tablet 40 MEQ PO (08:51)
[2023-12-07] MEDS: metoprolol tartrate 25 mg Tablet PO ×2 (08:51→20:42)
[2023-12-07] MEDS: sennosides-docusate Tablet 1 TAB PO (08:51)
--- NOTE | 2023-12-07 09:40 | PM.PN ---
Subjective Subjective: doing well Medications: Reviewed: Yes Vitals/I&O/Wt Last Vital Signs Temp 98.1 F 12/07/23 08:00 Pulse 70 12/07/23 08:00 Resp 17 12/07/23 08:00 BP 142/53 12/07/23 08:00 Pulse Ox 95 12/07/23 08:00 O2 Del Method Nasal Cannula 12/07/23 08:00 O2 Flow Rate 3 12/06/23 08:35 12/06/23 12/07/23 12/07/23 22:59 06:59 14:59 Intake Total 699.484 / 2068.167 412.333 / 2480.500 240 / 240 Output Total 450 / 650 Balance 249.484 / 1418.167 412.333 / 1830.500 240 / 240 Weight last 48 hrs Weight 75.75 kg Weight 75.75 kg Weight 75.75 kg Physical Exam Const: COMMON NORMALS: no acute distress and alert Extremity: NARRATIVE EXTREMITY EXAM: no edema, discolored right great toe Neuro: SENSORIUM/ORIENTATION: Yes alert Data 12/07/23 04:56 12/07/23 04:56 A&P Assessment and plan (1) Acute kidney injury: Plan 1. Acute kidney injury: renal function stable start lasix 20 mg bid 2. 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 Nephrotic range proteinuria, hypoalbuminemia 3. Hypokalemia: resolved 4. Pneumonia: improved 5. Peripheral artery disease with ischemia left foot, angiogram postponed due to CLOTILDE, plan to do in future Attestations Medical Necessity Statement*: per miri Coding Level of Care Code Acute Code for [facility] Diagnoses Acute kidney injury N17.9
[2023-12-07 12:46] LABS: Partial Thromboplastin Time 39.3 SECONDS (23.9-36.7)
[2023-12-07] MEDS: cefepime 1,000 MG in sodium chloride 0.9% (plus) 50 ML 100 MG IV (14:05)
--- NOTE | 2023-12-07 15:55 | PM.PN ---
Subjective Subjective: Patient was seen this morning, he tells me that his pain is more well-controlled, we discussed potentially transitioning him over to oxycodone extended release and then immediate release on top of that in a effort to potentially discharge him in the next few days if we can get his pain under control here in the hospital will continue antibiotics, he is creatinine is 2.5, he does tell me that his shortness of breath has improved, will continue to monitor his renal function his right toe tenderness has improved but continues to have a bluish hue, area of erythema has improved Vitals/I&O/Wt Last Vital Signs Temp 98.0 F 12/07/23 10:36 Pulse 68 12/07/23 10:36 Resp 18 12/07/23 10:54 BP 128/53 12/07/23 10:36 Pulse Ox 95 12/07/23 10:36 O2 Del Method Nasal Cannula 12/07/23 10:36 O2 Flow Rate 2 12/07/23 10:36 12/07/23 12/07/23 12/07/23 06:59 14:59 22:59 Intake Total 412.333 / 2480.500 480 / 480 350 / 830 Balance 412.333 / 1830.500 480 / 480 350 / 830 Weight last 48 hrs Weight 75.75 kg Weight 75.75 kg Weight 75.75 kg Physical Exam Const: COMMON NORMALS: no acute distress and patient oriented x3 Resp: COMMON NORMALS: normal respiratory effort, No retractions, No use of accessory muscles and clear to auscultation bilaterally AUSCULTATION: clear to auscultation bilaterally Cardio: COMMON NORMALS: regular rate, regular rhythm, S1 normal heart sound present and S2 normal heart sound present RATE: regular rate RHYTHM: regular rhythm HEART SOUNDS: S1 normal heart sound present and S2 normal heart sound present GI: COMMON NORMALS: Normal to inspection, nondistended, normoactive bowel sounds present and non-tender Extremity: NARRATIVE EXTREMITY EXAM: Right toe bluish hue area of erythema is within the marked borders, has DP PT pulses pallor present Neuro: COMMON NORMALS: patient oriented x3 Psych: COMMON NORMALS: mental status grossly normal Data 12/07/23 04:56 12/07/23 04:56 A&P Assessment and plan (1) Hypertension: Qualifiers: Hypertension type: essential hypertension Qualified Code(s): I10 - Essential (primary) hypertension (2) Left subclavian artery occlusion: (3) Peripheral arterial disease: (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: (5) Type 2 diabetes mellitus: Qualifiers: Diabetes mellitus mcfp insulin use: without mcfp use Diabetes mellitus complication status: without complication Qualified Code(s): E11.9 - Type 2 diabetes mellitus without complications (6) Hyperdense renal cyst: (7) Pneumonia: Qualifiers: Laterality: right Lung location: lower lobe of lung Pneumonia type: due to unspecified organism Qualified Code(s): J18.9 - Pneumonia, unspecified organism (8) Pulmonary vascular congestion: (9) Acute worsening of stage 3 chronic kidney disease: (10) Acute lower limb ischemia: (11) Cellulitis: (12) Hemoptysis: Plan Community-acquired pneumonia De-escalate antibiotics to doxycycline, currently on cefepime and Zyvox due to cellulitis concerns below No signs of confusion, no fever or sepsis Acute preserved ejection fraction CHF exacerbation, currently on 3 L, fluid overload is improving 1 dose IV Lasix today, creatinine 2.5 Urine output 2250 Blue toe syndrome, with cellulitis Has seen Dr. Brown in the past who has started him on anticoagulating agent Eliquis Plan for aorta with runoff once creatinine is stable, Now with more erythema, extending down at the base of the toe, on broad-spectrum antibiotic therapy for concerns for cellulitis, ? Severe intractable pain, continue oxycodone immediate release 5 to 10 mg every 4 hours as needed, scheduled oxycodone 5 mg ER twice daily, will space out Dilaudid to be used sparingly and transition for patient to have an outpatient regimen ? Concerns for developing acute on chronic limb ischemia, resolving ? ROBYN is 0.4 on the right ? Spoke to cardiology, will consult, ? Due to scant hemoptysis, heparin drip WAS on hold, BUT as hemoptysis resolved , so heparin drip has resumed, no hemoptysis since then ? Continue aspirin, Eliquis, add cilostazol Acute on chronic limb ischemia Intractable pain Good DP and PT pulses bilaterally no Ischemic ulcers Oxycodone for pain control as above Acute on chronic kidney disease stage III Mild exacerbation related to cardiorenal syndrome Creatinine up to 2.5, nephrology consulted acute on chronic -anemia 8.9 -will monitor -denies bloody or black stool hemoptysis, resolved Patient lives at home Fairly active for his age Full code Cardiac diet Attestations Medical Necessity Statement*: Patient requires hospitalization for concerns for acute on chronic limb ischemia, fluid overload requiring IV diuresis, CLOTILDE, hemoptysis Diagnoses Essential hypertension I10 Hypertension type: essential hypertension Left subclavian artery occlusion I70.8 Peripheral arterial disease I73.9 Embolism and thrombosis of arteries of the lower extremities I74.3 Type 2 diabetes mellitus without complication, without long-term current use of insulin E11.9 Diabetes 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
[2023-12-07] MEDS: FUROsemide 20 mg Tablet PO (16:24)
--- NOTE | 2023-12-07 16:28 | PM.PN ---
Subjective Subjective: Patient feels his toe is significantly better today. Pain has improved as well. Vitals/I&O/Wt Last Vital Signs Temp 97.5 F L 12/07/23 16:00 Pulse 66 12/07/23 16:00 Resp 17 12/07/23 16:00 BP 133/52 12/07/23 16:00 Pulse Ox 93 12/07/23 16:00 O2 Del Method Nasal Cannula 12/07/23 16:00 O2 Flow Rate 2 12/07/23 16:00 12/07/23 12/07/23 12/07/23 06:59 14:59 22:59 Intake Total 412.333 / 2480.500 480 / 480 456.167 / 936.167 Balance 412.333 / 1830.500 480 / 480 456.167 / 936.167 Weight last 48 hrs Weight 167 lb Weight 167 lb Weight 167 lb Physical Exam Narrative: GENERAL: Patient is alert, awake and oriented x3. [] NECK: No jugular vein distension. [] HEENT: No cyanosis. No icterus. No pallor. [] HEART: Regular S1 and S2. No murmur, rub or gallop. [] LUNGS: Clear to auscultate bilaterally. [] CENTRAL NERVOUS SYSTEM: Grossly nonfocal. [] EXTREMITIES: Lower extremities no edema. Right foot pulse is dopplerable. Right big toe has bluish discoloration. Has some redness on the foot around it. Data 12/08/23 04:17 12/08/23 04:17 A&P Assessment and plan (1) Limb ischemia: (2) Hypertension: Qualifiers: Hypertension type: essential hypertension Qualified Code(s): I10 - Essential (primary) hypertension (3) Left subclavian artery occlusion: (4) Peripheral arterial disease: (5) Embolism and thrombosis of arteries of the lower extremities: (6) Type 2 diabetes mellitus: Qualifiers: Diabetes mellitus retirement insulin use: without retirement use Diabetes mellitus complication status: without complication Qualified Code(s): E11.9 - Type 2 diabetes mellitus without complications (7) Hyperdense renal cyst: (8) Pneumonia: Qualifiers: Laterality: right Lung location: lower lobe of lung Pneumonia type: due to unspecified organism Qualified Code(s): J18.9 - Pneumonia, unspecified organism (9) Pulmonary vascular congestion: (10) Acute worsening of stage 3 chronic kidney disease: Plan Toe is improving slowly both with improved color and pain. Continue heparin. Continue ambulation Monitor renal function Thank you for involving us with care of this patient. we will continue to follow. Please call with questions. Attestations Medical Necessity Statement*: Care expected to cross 2 midnights. 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
[2023-12-07] MEDS: oxyCODONE 10 mg ER (12 HR) Tablet 5 MG PO (17:32)
[2023-12-07] MEDS: tamsulosin 0.4 mg Capsule 0.800000000000000044 MG PO (20:42)
[2023-12-07 22:16] LABS: Partial Thromboplastin Time 45.9 SECONDS (23.9-36.7)
[2023-12-08] VITALS (9 sets, daily range): BP systolic 136–153; BP diastolic 47–62; PULSE 65–75; RESP 16–18; TEMP 36.5–36.8; O2SAT 83–96
[2023-12-08] MEDS: linezolid premix 600 MG/300 ML PREMIX 300 MG IV ×2 (01:25→12:38)
[2023-12-08] MEDS: oxyCODONE 5 mg IR Tab/Cap PO ×2 (03:08→19:37)
[2023-12-08 04:24] LABS: Basophils % 0.1 %; Eosinophils # 0.2 10^3/uL (0.0-0.8); Eosinophils % 2.1 %; Hematocrit 25.3 % (37-53); Lymphocytes # 1.6 10^3/uL (0.8-4.8); Lymphocytes % 22.6 %; Mean Corpuscular HGB Conc 33.2 g/dL (30-55); Mean Corpuscular Hemoglobin 31.5 pg (27-33); Mean Corpuscular Volume 94.8 fl (82-101); Mean Platelet Volume 10.1 fL (7.4-10.4); Monocytes # 1.4 10^3/uL (0.2-0.9); Monocytes % 19.8 %; Neutrophils % 52.4 %; Nucleated Red Blood Cells % 0 %; Platelet Count 210 10^3/cmm (157-399); Red Blood Count 2.67 10^6/uL (3.85-5.65); Red Cell Distribution Width 11.7 % (12.1-15.1); White Blood Count 7.26 10^3/uL (3.29-11.43)
[2023-12-08 04:35] LABS: Partial Thromboplastin Time 48.9 SECONDS (23.9-36.7)
[2023-12-08 04:41] LABS: Alanine Aminotransferase 14 U/L (0-41); Albumin Level 2.9 g/dL (3.5-5.2); Alkaline Phosphatase 63 U/L (40-130); Anion Gap 15.4 (5-19); Aspartate Amino Transferase 17 U/L (0-40); Blood Urea Nitrogen 51 mg/dL (8-23); C Reactive Protein 49.8 mg/L (0.0-4.9); Calcium 8.3 mg/dL (8.5-10.5); Carbon Dioxide 26 mmol/L (22-29); Chloride 103 mmol/L (98-107); Creatinine Clr Calc Pharmacy 23.9179; Globulin 2.4 g/dL (1.3-4.6); Glucose 220 mg/dL (65-115); Magnesium 2.3 mg/dL (1.7-2.3); Osmolality Calculated 312 mOsm/kg (285-295); Potassium 3.4 mmol/L (3.5-5.1); Sodium 141 mmol/L (136-145); Total Bilirubin 0.6 mg/dL (0.15-1.2); Total Protein 5.3 g/dL (6.6-8.7)
[2023-12-08] MEDS: heparin 5,000 unit/mL INJ 1 mL IV (04:45)
[2023-12-08 04:55] LABS: Creatine Phosphokinase 94 U/L (39-308); NT Pro B Type Natriuretic Pept 3439 pg/mL (0-450)
[2023-12-08] MEDS: hyDRALAzine 10 mg Tablet 25 MG PO ×3 (05:55→21:04)
--- NOTE | 2023-12-08 07:02 | P.PN_ITS ---
Subjective 2 Subjective: no new complaints Medications: Reviewed: Yes Vitals/I&O/Wt Last Vital Signs Temp 98.2 F 12/08/23 03:58 Pulse 67 12/08/23 03:58 Resp 16 12/08/23 03:58 BP 149/54 12/08/23 03:58 Pulse Ox 95 12/08/23 03:58 O2 Del Method Nasal Cannula 12/08/23 03:58 O2 Flow Rate 2 12/07/23 23:46 12/07/23 12/08/23 12/08/23 22:59 06:59 14:59 Intake Total 534.460 / 1014.460 627.733 / 1642.193 Output Total 300 / 300 125 / 425 Balance 234.460 / 714.460 502.733 / 1217.193 Weight last 48 hrs Weight 78.471 kg Weight 75.75 kg Weight 75.75 kg Physical Exam 2 Const: COMMON NORMALS: no acute distress and alert Extremity: NARRATIVE EXTREMITY EXAM: no edema, discolored right great toe Neuro: SENSORIUM/ORIENTATION: Yes alert Data 12/08/23 04:17 12/08/23 04:17 A&P Assessment and plan (1) Acute kidney injury: Plan 1. Acute kidney injury: renal function stable start lasix 20 mg bid 2. 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 Nephrotic range proteinuria, hypoalbuminemia 3. Hypokalemia: resolved 4. Pneumonia: improved 5. Peripheral artery disease with ischemia left foot, angiogram postponed due to CLOTILDE, plan to do in future Attestations 2 Medical Necessity Statement*: per medicine Coding Level of Care Code Acute Code for [facility] Diagnoses Acute kidney injury N17.9
--- NOTE | 2023-12-08 08:21 | P.PN_ITS ---
Subjective 2 Subjective: Patient is stable. Ambulating. Renal function still not on baseline. Vitals/I&O/Wt Last Vital Signs Temp 98.2 F 12/08/23 03:58 Pulse 67 12/08/23 03:58 Resp 16 12/08/23 03:58 BP 149/54 12/08/23 03:58 Pulse Ox 95 12/08/23 03:58 O2 Del Method Nasal Cannula 12/08/23 03:58 O2 Flow Rate 2 12/07/23 23:46 12/07/23 12/08/23 12/08/23 22:59 06:59 14:59 Intake Total 534.460 / 1014.460 627.733 / 1642.193 Output Total 300 / 300 125 / 425 Balance 234.460 / 714.460 502.733 / 1217.193 Weight last 48 hrs Weight 173 lb Weight 167 lb Weight 167 lb Physical Exam 2 Narrative: GENERAL: Patient is alert, awake and oriented x3. [] NECK: No jugular vein distension. [] HEENT: No cyanosis. No icterus. No pallor. [] HEART: Regular S1 and S2. No murmur, rub or gallop. [] LUNGS: Clear to auscultate bilaterally. [] CENTRAL NERVOUS SYSTEM: Grossly nonfocal. [] EXTREMITIES: Lower extremities no edema. Right foot pulse is dopplerable. Right big toe has bluish discoloration. Has some redness on the foot around it. Data 12/09/23 02:29 12/09/23 02:29 A&P Assessment and plan (1) Limb ischemia: (2) Hypertension: Qualifiers: Hypertension type: essential hypertension Qualified Code(s): I10 - Essential (primary) hypertension (3) Left subclavian artery occlusion: (4) Peripheral arterial disease: (5) Embolism and thrombosis of arteries of the lower extremities: (6) Type 2 diabetes mellitus: Qualifiers: Diabetes mellitus alf insulin use: without joint terminal attack controller use Diabetes mellitus complication status: without complication Qualified Code(s): E11.9 - Type 2 diabetes mellitus without complications (7) Hyperdense renal cyst: (8) Pneumonia: Qualifiers: Laterality: right Lung location: lower lobe of lung Pneumonia type: d ue to unspecified organism Qualified Code(s): J18.9 - Pneumonia, unspecified organism (9) Pulmonary vascular congestion: (10) Acute worsening of stage 3 chronic kidney disease: Plan Continue anticoagulation. Can switch to Eliquis. Creatinine still uptrending.Decision regarding discharge per primary team and nephrology Continue ambulation. Thank you for involving us with care of this patient. we will continue to follow. Please call with questions. Attestations 2 Medical Necessity Statement*: Care expected to cross 2 midnights. Coding Level of Care Code Acute Code for [facility] Fwd Diagnoses Limb ischemia I99.8 Essential hypertension I10 Hypertension type: essential hypertension Left subclavian artery occlusion I70.8 Peripheral arterial disease I73.9 Embolism and thrombosis of arteries of the lower extremities I74.3 Type 2 diabetes mellitus without complication, without long-term current use of insulin E11.9 Diabetes mellitus alf insulin use: without joint terminal attack controller use Diabetes mellitus complication status: without complication Hyperdense renal cyst N28.1 Pneumonia J18.9 Laterality: right Lung location: lower lobe of lung Pneumonia type: due to unspecified organism Pulmonary vascular congestion R09.89 Acute worsening of stage 3 chronic kidney disease N18.30
[2023-12-08] MEDS: aspirin 81 mg EC Tablet PO (09:43)
[2023-12-08] MEDS: cilostazol 100 mg Tablet 50 MG PO ×2 (09:43→17:42)
[2023-12-08] MEDS: FUROsemide 20 mg Tablet PO ×2 (09:43→16:11)
[2023-12-08] MEDS: metoprolol tartrate 25 mg Tablet PO ×2 (09:44→21:04)
[2023-12-08] MEDS: atorvastatin 40 mg Tablet 80 MG PO (09:44)
[2023-12-08] MEDS: sennosides-docusate Tablet 1 TAB PO (09:44)
[2023-12-08] MEDS: oxyCODONE 10 mg ER (12 HR) Tablet 5 MG PO ×2 (09:48→17:41)
[2023-12-08] MEDS: apixaban 5 mg Tablet 2.5 MG PO (11:42)
--- NOTE | 2023-12-08 12:16 | PM.DCS ---
Discharge Providers Date of Admission: 11/28/23 19:38 Date of Discharge: December 08, 2023 Attending Provider at Admission: Margo Curtis MD Attending Provider at Discharge: Geronimo Curtis MD Primary Care Provider: JAMES Penn Diagnoses at Discharge Discharge Diagnosis (1) Acute kidney injury: Status: Acute Reason for Visit Reason for Visit: SOB Hospital Course Hospital Course Art Hollins is a 78 year old male with previous history of subclavian steal syndrome, peripheral vascular disease, atherosclerotic disease, right upper lobe granuloma/hematoma, blue toe syndrome, presented to hospital with chief complaint of worsening shortness of breath. Patient stating that for last few days he has been experiencing orthopnea PND and shortness of breath, he has not noticed any significant diarrhea, vomiting or nausea but endorsing low-grade fever 99.7, no sick contacts. Patient has follow-up with Dr. Brown for his blue toe syndrome, Dr. Brown has started him on Eliquis, there is plan to do an angiogram in the future once creatinine is better he carries history of chronic kidney stage III. In the ER he has been diagnosed with pneumonia and congestive heart failure. Currently not on oxygen He was complaining of right toe pain, paresthesias on clinical exam PVCs with sinus rhythm, D-dimer is high, troponin trending down BNP is high Patient had a prolonged hospitalization please look at my last progress note for details Patient was admitted. To have community-acquired pneumonia, received IV antibiotics overall clinically improved, During this hospitalization, there was concerns for worsening of his blue toe syndrome, concerns for acute on chronic limb ischemia, with developing cellulitis, requiring consultation of cardiology, IV antibiotics, ROBYN on the right was 0.4 require daily foot exams, due to patient's worsening creatinine, after shared decision making with patient and cardiology, patient has decided to forego any acute intervention. On discharge his blue toe looks significantly improved he can ambulate with improvement of his symptomatology, his area of erythema from his big toe down the lateral aspect of the foot has significantly improved, discharged him on doxycycline, for cellulitis, Eliquis 2.5 mg twice daily given his kidney function with a close follow-up with cardiology as outpatient. Patient was advised that if he suddenly has worsening pain of his great toe, or he has sudden change in coloration, or if it starts to look dark and STDs or life-threatening symptoms and for him to come to the emergency room. For his severe intractable pain, pain management was difficult during his hospitalization, due to his severe pain from his blue toe syndrome, at times severe rest pain, his acute on chronic limb ischemia, regimen that has worked is oxycodone immediate release 5 mg every 6 hours as needed, with oxycodone extended release 5 mg twice daily scheduled. Patient was advised to use medication sparingly, do not drive or operate machinery or drink while taking medication, do not use with any other medications, if there is any concerns for opiate overdose stop taking the medication and call [phone] 1 For acute kidney injury on chronic kidney disease stage III, patient developed a worsening kidney function nephrology was consulted, his creatinine was monitored over a few days, with diuresis, due to fluid overload and CHF exacerbation, his creatinine on discharge is 2.5. I had a detailed discussion with patient, his SD nurse, and also [facility]. With the patient I have discussed that we have to watch his kidney function very closely [facility] he will likely require weekly monitoring of his kidney function. [facility] terms of the [facility] I left detailed instructions with his nurse about the concerns for his fluid overload, and his CKD and his blue toe syndrome they will follow-up with him closely. For [facility] I personally called him, unfortunately after detailed discussion with him, I was able to fax over the lab results, to see if he can get a sooner appointment his schedule appointment is in May, I have not heard back from them as of yet For hemoptysis during his hospitalization, resolved, continue to monitor closely as outpatient For acute CHF exacerbation during his hospitalization with acute respiratory failure, requiring 3 L, received IV diuresis, which had to be tailored with his acute renal failure, discharged on Lasix 20 mg twice daily, monitor diuresis as outpatient through the SD monitor kidney function very closely Physical Exam Const: COMMON NORMALS: no acute distress and patient oriented x3 Resp: COMMON NORMALS: normal respiratory effort, No retractions, No use of accessory muscles and clear to auscultation bilaterally AUSCULTATION: clear to auscultation bilaterally Cardio: COMMON NORMALS: regular rate, regular rhythm, S1 normal heart sound present and S2 normal heart sound present RATE: regular rate RHYTHM: regular rhythm HEART SOUNDS: S1 normal heart sound present and S2 normal heart sound present GI: COMMON NORMALS: Normal to inspection, nondistended, normoactive bowel sounds present and non-tender Extremity: COMMON NORMALS: no pedal edema NARRATIVE EXTREMITY EXAM: Right great toe, blue, erythema base of right toe, DP PT pulses palpable Neuro: COMMON NORMALS: patient oriented x3 Psych: COMMON NORMALS: mental status grossly normal Discharge Data Studies Completed and Pending Completed Studies During Hospitalization Category Date Time Status CXRP [XR chest 1V portable [id number]] Routine Exams 12/04/23 19:05 Completed XR chest 1V portable [id number] Stat Exams 11/28/23 14:44 Completed XR chest 1V portable [id number] Stat Exams 12/05/23 07:28 Completed CV. echo complete* [id number] Routine Ultrasound 11/28/23 20:41 Completed US arterial duplex lower extremity bilat [CV arterial Ultrasound 11/29/23 09:38 [place] [id number]] Routine Pending at discharge Category Date Time Status Occult Blood Stool [Immunochemical Fecal OCB] Routine Lab 12/05/23 08:51 Uncollected PTT [Partial Thromboplastin Time] Timed Lab 12/08/23 10:45 Ordered Laboratory Results WBC 7.26 10^3/uL (3.29-11.43) 12/08/23 04:17 RBC 2.67 10^6/uL (3.85-5.65) L 12/08/23 04:17 Hgb 8.40 g/dL (11.27-16.99) L 12/08/23 04:17 Hct 25.3 % (37-53) L 12/08/23 04:17 MCV 94.8 fl (82-101) 12/08/23 04:17 MCH 31.5 pg (27-33) 12/08/23 04:17 MCHC 33.2 g/dL (30-55) 12/08/23 04:17 RDW 11.7 % (12.1-15.1) L 12/08/23 04:17 Plt Count 210 10^3/cmm (157-399) 12/08/23 04:17 MPV 10.1 fL (7.4-10.4) 12/08/23 04:17 Neut % (Auto) 52.4 % 12/08/23 04:17 Lymph % (Auto) 22.6 % 12/08/23 04:17 [place] % (Auto) 19.8 % 12/08/23 04:17 Eos % (Auto) 2.1 % 12/08/23 04:17 Baso % (Auto) 0.1 % 12/08/23 04:17 Neut # (Auto) 3.80 10^3/uL (1.8-7.7) 12/08/23 04:17 Lymph # (Auto) 1.6 10^3/uL (0.8-4.8) 12/08/23 04:17 [place] # (Auto) 1.4 10^3/uL (0.2-0.9) H 12/08/23 04:17 Eos # (Auto) 0.2 10^3/uL (0.0-0.8) 12/08/23 04:17 Baso # (Auto) 0.0 10^3/uL (0.0-0.1) 12/08/23 04:17 Nucleated RBC % (auto) 0 % 12/08/23 04:17 Total Counted 100 (0-100) 11/30/23 05:40 Atypical Lymphs % Not Reportable 11/30/23 05:40 Segmented Neutrophils 57 % 11/30/23 05:40 Abs Segm Neuts (Man) 4.0 10/cmm (1.6-7.1) 11/30/23 05:40 Band Neutrophils Not Reportable 11/30/23 05:40 Lymphocytes (Manual) 23 % 11/30/23 05:40 Monocytes (Manual) 13.0 % 11/30/23 05:40 Absolute Monocytes 0.9 10^3/cmm (0.1-0.6) H 11/30/23 05:40 Eosinophils (Manual) 2 % 11/30/23 05:40 Absolute Eosinophils 0.1 10^3/cmm (0.0-0.7) 11/30/23 05:40 Basophils (Manual) 0.0 % 11/30/23 05:40 Absolute Basophils 0.0 10^3/cmm (0.0-0.2) 11/30/23 05:40 Metamyelocytes 1.0 % 11/30/23 05:40 Myelocytes 4.0 % 11/30/23 05:40 Nucleated RBCs # 0.0 /100WBC 12/08/23 04:17 Platelet Estimate Normal (Normal) 11/30/23 05:40 APTT 48.9 SECONDS (23.9-36.7) H 12/08/23 04:17 D-Dimer 1.24 ug/mLFEU (0-0.59) H 11/28/23 14:36 Sodium 141 mmol/L (136-145) 12/08/23 04:17 Potassium 3.4 mmol/L (3.5-5.1) L 12/08/23 04:17 Chloride 103 mmol/L (98-107) 12/08/23 04:17 Carbon Dioxide 26 mmol/L (22-29) 12/08/23 04:17 Anion Gap 15.4 (5-19) 12/08/23 04:17 BUN 51 mg/dL (8-23) H 12/08/23 04:17 Creatinine 2.6 mg/dL (0.7-1.2) H 12/08/23 04:17 GFR Calculation Not Reportable 12/08/23 04:17 Glucose 220 mg/dL (65-115) H 12/08/23 04:17 Calculated Osmolality 312 mOsm/kg (285-295) H 12/08/23 04:17 Lactic Acid 1.9 mmol/L (0.5-2.2) 11/28/23 14:36 Lactate 1.0 mmol/L (0.5-2.2) 12/08/23 04:17 Calcium 8.3 mg/dL (8.5-10.5) L 12/08/23 04:17 Phosphorus 4.0 mg/dL (2.5-4.5) 12/08/23 04:17 Magnesium 2.3 mg/dL (1.7-2.3) 12/08/23 04:17 Iron 43 ug/dL (59-158) L 12/05/23 01:41 TIBC 149 mcg/dl 12/05/23 01:41 % Saturation 28.8 % (20-50) 12/05/23 01:41 Unsat Iron Binding 106 ug/dL (112-347) L 12/05/23 01:41 Ferritin 260 ng/mL (30-400) 12/05/23 01:41 Total Bilirubin 0.6 mg/dL (0.15-1.2) 12/08/23 04:17 AST 17 U/L (0-40) 12/08/23 04:17 ALT 14 U/L (0-41) 12/08/23 04:17 Alkaline Phosphatase 63 U/L (40-130) 12/08/23 04:17 Creatine Kinase 94 U/L (39-308) 12/08/23 04:17 Troponin T Baseline 52 ng/L (0-15) H 11/28/23 14:36 Troponin T 120 Minute 44.69 ng/L (0-15) H 11/28/23 17:00 Delta Troponin T -7.31 ABS# (0-10) L 11/28/23 17:00 Troponin T Hi Sens 6Hr 44.72 ng/L (0-15) H 11/28/23 21:09 Troponin T Hi Sens 6Hr Delta -7.28 ng/L (0-12) L 11/28/23 21:09 C-Reactive Protein 49.8 mg/L (0.0-4.9) H 12/08/23 04:17 NT-Pro-B Natriuret Pep 3439 pg/mL (0-450) H 12/08/23 04:17 Total Protein 5.3 g/dL (6.6-8.7) L 12/08/23 04:17 Albumin 2.9 g/dL (3.5-5.2) L 12/08/23 04:17 Globulin 2.4 g/dL (1.3-4.6) 12/08/23 04:17 Procalcitonin 0.14 ng/mL (0-0.5) 11/28/23 14:36 TSH 1.54 uIU/mL (0.27-4.20) 11/28/23 17:00 Urine Color Light yellow (Yellow) 12/01/23 19:25 Urine Appearance Sl hazy (CLEAR) A 12/01/23 19:25 Urine pH 6.5 (5-7) 12/01/23 19:25 Ur Specific [place] 1.015 (1.005-1.030) 12/01/23 19:25 Urine Protein 3+ (Negative) H 12/01/23 19:25 Urine Glucose (UA) 1+ (Normal) H 12/01/23 19:25 Urine Ketones Negative (Negative) 12/01/23 19:25 Urine Blood Neg (Negative) 12/01/23 19:25 Urine Nitrate Negative (Negative) 12/01/23 19:25 Urine Bilirubin Neg (Negative) 12/01/23 19:25 Urine Urobilinogen Neg mg/dL (Negative) 12/01/23 19:25 Ur Leukocyte Esterase Negative (Negative) 12/01/23 19:25 Urine RBC 0-4 /hpf (0-2) H 12/01/23 19:25 Urine WBC 0-4 /hpf (0-5) H 12/01/23 19:25 Ur Squamous Epith Cells 0-4 /hpf (0-5) H 12/01/23 19:25 Amorphous Sediment Trace /hpf 12/01/23 19:25 Urine Bacteria Trace /hpf (NONE) 12/01/23 19:25 Hyaline Casts 5-10 /lpf H 12/01/23 19:25 Coarse Granular Casts 0-4 /lpf H 12/01/23 19:25 Urine Mucus Trace /hpf 12/01/23 19:25 U Random Total Protein 363 mg/dL 12/01/23 19:25 Ur Random Sodium 97 mmol/L 12/01/23 19:25 Urine Creatinine 86 mg/dL (39-259) 12/01/23 19:25 Adenovirus (PCR) Not detected (NOT DETECT) 11/29/23 08:55 C. pneumoniae DNA (PCR) Not detected (NOT DETECT) 11/29/23 08:55 Coronavirus 229E (PCR) Not detected (NOT DETECT) 11/29/23 08:55 Human Metapneumovir PCR Not detected (NOT DETECT) 11/29/23 08:55 Influenza A (H1) PCR Not detected (NOT DETECT) 11/29/23 08:55 Influ A (H1/09) PCR Not detected (NOT DETECT) 11/29/23 08:55 Influenza A (H3) PCR Not detected (NOT DETECT) 11/29/23 08:55 Influenza Type A (PCR) Not detected (NOT DETECT) 11/29/23 08:55 Influenza Type B (PCR) Not detected (NOT DETECT) 11/29/23 08:55 M. pneumoniae (PCR) Not detected (NOT DETECT) 11/29/23 08:55 Parainfluenza 1 (PCR) Not detected (NOT DETECT) 11/29/23 08:55 Parainfluenza 2 (PCR) Not detected (NOT DETECT) 11/29/23 08:55 Parainfluenza 3 (PCR) Not detected (NOT DETECT) 11/29/23 08:55 Parainfluenza 4 (PCR) Not detected (NOT DETECT) 11/29/23 08:55 RSV Type A (PCR) Not detected (NOT DETECT) 11/29/23 08:55 RSV Type B (PCR) Not detected (NOT DETECT) 11/29/23 08:55 Entero/Rhino (PCR) Not detected (NOT DETECT) 11/29/23 08:55 SARS-CoV-2 (PCR) Not detected (NOT DETECT) 11/29/23 08:55 Vitals Last Vital Signs Temp 97.8 F 12/08/23 08:00 Pulse 66 12/08/23 08:00 Resp 17 12/08/23 08:00 BP 153/55 12/08/23 08:00 Pulse Ox 83 L 12/08/23 11:48 O2 Del Method Nasal Cannula 12/08/23 03:58 O2 Flow Rate 3 12/08/23 11:48 Discharge Plan Discharge Patient Disposition: Home Health Service Condition: Stable Prescriptions: New cilostazol 100 mg Tablet 50 mg PO BID 30 Days Qty: 30 0RF aspirin 81 mg Tablet,Delayed Release (Dr/Ec) 81 mg PO DAILY 30 Days Qty: 30 0RF benzonatate 100 mg Capsule 100 mg PO TID PRN (Reason: Cough) 7 Days Qty: 28 0RF furosemide 20 mg Tablet 20 mg PO BID@08,16 30 Days Qty: 30 0RF oxycodone 5 mg Tablet 5 mg PO Q6H PRN (Reason: Moderate Pain) 7 Days Qty: 28 0RF metoprolol tartrate 25 mg Tablet 25 mg PO BID@0900,2100 30 Days Qty: 60 0RF doxycycline hyclate 100 mg tablet 100 mg PO BID 7 Days Qty: 14 0RF hydralazine 25 mg tablet 25 mg PO TID 30 Days Qty: 90 0RF Miralax 17 gram/dose powder 17 g PO DAILY 30 Days Qty: 119 0RF senna 8.6 mg capsule 8.6 mg PO DAILY 30 Days Qty: 30 0RF OxyContin 10 mg tablet,oral only,ext.rel.12 hr 10 mg PO DAILY 7 Days Qty: 7 0RF Continued cholecalciferol (vitamin D3) 50 mcg (2,000 unit) capsule 50 mcg PO DAILY acetaminophen [Tylenol Extra Strength] 500 mg tablet 500 mg PO Q6H PRN (Reason: Pain) Metamucil 3.4 gram/5.4 gram powder 1 tbsp PO BID Rx Instructions: mix into at least 8 oz of water or juice before administering Centrum Silver Ultra Men's 300-600-300 mcg tablet 1 tab PO DAILY atorvastatin 80 mg tablet 80 mg PO DAILY Qty: 90 3RF tamsulosin 0.4 mg capsule 0.8 mg PO BEDTIME naloxone 0.4 mg/mL Solution 0.4 mg SUBCUT Q2M PRN (Reason: OVERDOSE) Rx Instructions: NTExceed 10 mg total dose/episode Changed apixaban 5 mg tablet 2.5 mg PO BID 30 Days Qty: 30 0RF Discontinued tramadol 50 mg tablet 50 mg PO DAILY PRN (Reason: Pain) nifedipine 30 mg tablet extended release See Rx Instructions .ROUTE .COMPLEX Rx Instructions: TAKE 2 TABLETS BY MOUTH IN THE MORNING AND 1 TABLET AT BEDTIME. chlorthalidone 25 mg tablet 25 mg PO DAILY Qty: 90 4RF oxycodone-acetaminophen 5-325 mg Tablet 1 tab PO Q4H PRN (Reason: Pain) furosemide 20 mg Tablet 20 mg PO DAILY Discharge Orders: Discharge Order (Routine); Ordered 12/10/23 Ordered By: Geronimo Curtis Other Ambulatory Orders: DME: Oxygen (Order) Location: None Selected Ordered By: Geronimo Curtis DME: Walker (Order) Location: None Selected Ordered By: Geronimo Curtis Referrals: [facility] [Outside] Loraine Salvador FNP [Primary Care Provider] - 12/18/23 9:30 am Discharge Diet: Cardiac Discharge Activity: Resume usual activity Patient Instructions: Metoprolol (By mouth) (Lopressor, Toprol XL), Hydralazine (By mouth) (Apresoline), Oxycodone, Rapid Release (By mouth) (ETH-Oxydose, Oxy IR,..., Cilostazol (By mouth) (Pletal), Oxycodone, Slow Release (By mouth) (Oxycontin, Xtampza ER), Acute Kidney Injury (DC), Cellulitis (ED), Bacterial Pneumonia (DC), Opioid Safety Activity Restrictions/Additional Instructions: - Your creatinine on discharge is 2.5, please have snow palmer to recheck your kidney function on Monday, if your creatinine is higher than 2.7, and you are having electrolyte abnormalities you might have to be admitted to [facility] for consideration of dialysis -Please monitor for shortness of breath, discharging you on oxygen therapy, if you feel more short of breath you start developing edema please come back to the emergency room ? I am discharging you on Lasix 20 mg twice daily -Your Lasix dose might be increased based upon your clinical status and your kidney function -For your blue toe syndrome, continue to monitor, if your toe is suddenly dark and dusky, and has any discharge, this could be indication of life-threatening infection please come back to the hospital -I am discharging you on antibiotic therapy -For your pain control at discharge on OxyContin 10 mg extended release once daily to control your pain throughout the day, if you feel short of breath lightheaded or dizzy please stop taking this medication ? For your breakthrough pain discharged on oxycodone 5 mg every 6 hours as needed please use sparingly, do not use with any other medications, do not drive, or drink or operate machinery while taking medication - Discharge Attestations Time Spent in Discharge Care*: greater than 30 min Quality Metrics Clinical Quality Measures [ No reported AMI, CVA or VTE this stay] Coding Level of Care Code 67041 Total time (in minutes) for Discharge: 45 Diagnoses Acute kidney injury N17.9
[2023-12-08 12:41] LABS: Partial Thromboplastin Time 34.7 SECONDS (23.9-36.7)
--- NOTE | 2023-12-08 14:45 | PC.SOCIAL ---
IMM update pg 2 of IMM updated and reviewed w/ patient. Copy provided and copy dated, initialed and placed in chart.
[2023-12-08] MEDS: cefepime 1,000 MG in sodium chloride 0.9% (plus) 50 ML 100 MG IV (15:00)
--- NOTE | 2023-12-08 15:17 | P.PN_ITS ---
Subjective 2 Subjective: Patient was seen this morning, denies any fevers, no chills, no cough he is ambulating Vitals/I&O/Wt Last Vital Signs Temp 98.1 F 12/08/23 12:00 Pulse 65 12/08/23 12:00 Resp 17 12/08/23 12:00 BP 145/56 12/08/23 12:00 Pulse Ox 94 12/08/23 12:00 O2 Del Method Nasal Cannula 12/08/23 03:58 O2 Flow Rate 3 12/08/23 11:48 12/08/23 12/08/23 12/08/23 06:59 14:59 22:59 Intake Total 627.733 / 1642.193 240 / 240 Output Total 125 / 425 Balance 502.733 / 1217.193 240 / 240 Weight last 48 hrs Weight 78.471 kg Weight 75.75 kg Weight 75.75 kg Physical Exam 2 Const: COMMON NORMALS: no acute distress and patient oriented x3 Resp: COMMON NORMALS: normal respiratory effort, No retractions, No use of accessory muscles and clear to auscultation bilaterally AUSCULTATION: clear to auscultation bilaterally Cardio: COMMON NORMALS: regular rate, regular rhythm, S1 normal heart sound present and S2 normal heart sound present RATE: regular rate RHYTHM: r egular rhythm HEART SOUNDS: S1 normal heart sound present and S2 normal heart sound present GI: COMMON NORMALS: Normal to inspection, nondistended, normoactive bowel sounds present and non-tender Extremity: NARRATIVE EXTREMITY EXAM: Right lower extremity, great toe, bluish hue, DP PT pulses palpable erythema improving Neuro: COMMON NORMALS: patient oriented x3 Psych: COMMON NORMALS: mental status grossly normal Data 12/08/23 04:17 12/08/23 04:17 A&P Assessment and plan (1) Hypertension: Qualifiers: Hypertension type: essential hypertension Qualified Code(s): I10 - Essential (primary) hypertension (2) Left subclavian artery occlusion: (3) Peripheral arterial disease: (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: (5) Type 2 diabetes mellitus: 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 Diabetes mellitus complication status: without complication Qualified Code(s): E11.9 - Type 2 diabetes mellitus without complications (6) Hyperdense renal cyst: (7) Pneumonia: Qualifiers: Laterality: right Lung location: lower lobe of lung Pneumonia type: d ue to unspecified organism Qualified Code(s): J18.9 - Pneumonia, unspecified organism (8) Pulmonary vascular congestion: (9) Acute worsening of stage 3 chronic kidney disease: (10) Acute lower limb ischemia: (11) Cellulitis: (12) Hemoptysis: Plan Community-acquired pneumonia De-escalate antibiotics to doxycycline, currently on cefepime and Zyvox due to cellulitis concerns below No signs of confusion, no fever or sepsis Acute preserved ejection fraction CHF exacerbation, currently on 3 L, fluid overload is improving 1 dose IV Lasix today, creatinine 2.5 Urine output 2250 Blue toe syndrome, with cellulitis Has seen Dr. Brown in the past who has started him on anticoagulating agent Eliquis Plan for aorta with runoff once creatinine is stable, Now with more erythema, extending down at the base of the toe, on broad- spectrum antibiotic therapy for concerns for cellulitis, ? Severe intractable pain, continue oxycodone immediate release 5 to 10 mg every 4 hours as needed, scheduled oxycodone 5 mg ER twice daily, will space out Dilaudid to be used sparingly and transition for patient to have an outpatient regimen ? Concerns for developing acute on chronic limb ischemia, resolving ? ROBYN is 0.4 on the right ? Spoke to cardiology, will consult, ? Due to scant hemoptysis, heparin drip WAS on hold, BUT as hemoptysis resolved , so heparin drip has resumed, no hemoptysis since then ? Continue aspirin, Eliquis, add cilostazol Acute on chronic limb ischemia Intractable pain Good DP and PT pulses bilaterally no Ischemic ulcers Oxycodone for pain control as above Acute on chronic kidney disease stage III Mild exacerbation related to cardiorenal syndrome Creatinine up to 2.6, nephrology consulted acute on chronic -anemia 8.9 -will monitor -denies bloody or black stool hemoptysis, resolved Patient lives at home Fairly active for his age Full code Cardiac diet Plan for today, wean off heparin drip switch to Eliquis, stop antibiotics switch to doxycycline, continue pain control, monitor for hemoptysis, continue ambulation, plan continue diuresis plan on discharging in the next 24 hours Attestations 2 Medical Necessity Statement*: Patient requires hospitalization for concerns for acute on chronic limb ischemia, blue toe syndrome, intractable pain, fluid overload, CHF, CLOTILDE Diagnoses Essential hypertension I10 Hypertension type: essential hypertension Left subclavian artery occlusion I70.8 Peripheral arterial disease I73.9 Embolism and thrombosis of arteries of the lower extremities I74.3 Type 2 diabetes mellitus without complication, without long-term current use of insulin E11.9 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
[2023-12-08] MEDS: tamsulosin 0.4 mg Capsule 0.800000000000000044 MG PO (21:04)
[2023-12-09] VITALS (11 sets, daily range): BP systolic 134–173; BP diastolic 49–55; PULSE 62–81; RESP 14–18; TEMP 36.5–36.9; O2SAT 91–96; BMI 27.3
[2023-12-09] MEDS: apixaban 5 mg Tablet 2.5 MG PO ×3 (00:08→22:34)
[2023-12-09 02:49] LABS: Basophils % 0.3 %; Eosinophils # 0.2 10^3/uL (0.0-0.8); Eosinophils % 2.1 %; Hematocrit 26.1 % (37-53); Lymphocytes # 1.6 10^3/uL (0.8-4.8); Lymphocytes % 21.7 %; Mean Corpuscular HGB Conc 32.2 g/dL (30-55); Mean Corpuscular Hemoglobin 31.2 pg (27-33); Mean Platelet Volume 10.5 fL (7.4-10.4); Monocytes # 1.2 10^3/uL (0.2-0.9); Neutrophils # 4.02 10^3/uL (1.8-7.7); Nucleated Red Blood Cells % 0 %; Platelet Count 207 10^3/cmm (157-399); Red Blood Count 2.69 10^6/uL (3.85-5.65); Red Cell Distribution Width 11.8 % (12.1-15.1); White Blood Count 7.18 10^3/uL (3.29-11.43)
[2023-12-09] MEDS: oxyCODONE 5 mg IR Tab/Cap PO ×3 (02:56→22:39)
[2023-12-09 03:10] LABS: Alanine Aminotransferase 19 U/L (0-41); Albumin Level 2.9 g/dL (3.5-5.2); Alkaline Phosphatase 68 U/L (40-130); Aspartate Amino Transferase 26 U/L (0-40); Blood Urea Nitrogen 51 mg/dL (8-23); Calcium 8.4 mg/dL (8.5-10.5); Carbon Dioxide 26 mmol/L (22-29); Chloride 106 mmol/L (98-107); Creatinine Clr Calc Pharmacy 23.3904; Globulin 2.7 g/dL (1.3-4.6); Glucose 120 mg/dL (65-115); Magnesium 2.3 mg/dL (1.7-2.3); Osmolality Calculated 311 mOsm/kg (285-295); Phosphorus 4.6 mg/dL (2.5-4.5); Sodium 143 mmol/L (136-145); Total Bilirubin 0.4 mg/dL (0.15-1.2); Total Protein 5.6 g/dL (6.6-8.7)
[2023-12-09 03:23] LABS: NT Pro B Type Natriuretic Pept 3093 pg/mL (0-450)
[2023-12-09] MEDS: hyDRALAzine 10 mg Tablet 25 MG PO ×3 (04:54→22:34)
[2023-12-09] MEDS: oxyCODONE 10 mg ER (12 HR) Tablet 5 MG PO ×2 (08:21→16:58)
[2023-12-09] MEDS: metoprolol tartrate 25 mg Tablet PO ×2 (08:22→20:29)
[2023-12-09] MEDS: aspirin 81 mg EC Tablet PO (08:23)
[2023-12-09] MEDS: doxycycline 100 mg Tablet PO ×2 (08:23→16:58)
[2023-12-09] MEDS: cilostazol 100 mg Tablet 50 MG PO ×2 (08:23→16:59)
[2023-12-09] MEDS: atorvastatin 40 mg Tablet 80 MG PO (08:23)
[2023-12-09] MEDS: FUROsemide 20 mg Tablet PO ×2 (08:23→16:58)
[2023-12-09] MEDS: sennosides-docusate Tablet 1 TAB PO (08:23)
--- NOTE | 2023-12-09 11:16 | PM.PN ---
Subjective Subjective: Patient's creatinine still uptrending. Redness on the foot has improved. Vitals/I&O/Wt Last Vital Signs Temp 98.0 F 12/09/23 08:00 Pulse 81 12/09/23 08:15 Resp 18 12/09/23 08:21 BP 155/49 12/09/23 08:00 Pulse Ox 95 12/09/23 08:21 O2 Del Method Nasal Cannula 12/09/23 08:15 O2 Flow Rate 3 12/09/23 08:15 12/08/23 12/09/23 12/09/23 22:59 06:59 14:59 Intake Total 710 / 1050.25 240 / 1290.25 120 / 120 Output Total 450 / 450 350 / 350 Balance 710 / 1050.25 -210 / 840.25 -230 / -230 Weight last 48 hrs Weight 175 lb Weight 173 lb Physical Exam Narrative: GENERAL: Patient is alert, awake and oriented x3. [] NECK: No jugular vein distension. [] HEENT: No cyanosis. No icterus. No pallor. [] HEART: Regular S1 and S2. No murmur, rub or gallop. [] LUNGS: Clear to auscultate bilaterally. [] CENTRAL NERVOUS SYSTEM: Grossly nonfocal. [] EXTREMITIES: Lower extremities no edema. Right foot pulse is dopplerable. Right big toe has bluish discoloration. Redness on foot improved. 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 Bluish discoloration on the dorsum of the toe still there but tenderness is improving. Sensation and movement intact. Continue anticoagulation. Continue with ambulation. Creatinine worsened. Continue monitoring. Nephrology on board Thank you for involving us with care of this patient. we will continue to follow. Please call with questions. Attestations Medical Necessity Statement*: Care expected to cross 2 midnights. Coding Level of Care Code Acute Code for [facility] Diagnoses Limb ischemia I99.8 Essential hypertension I10 Hypertension type: essential hypertension Left subclavian artery occlusion I70.8 Peripheral arterial disease I73.9 Embolism and thrombosis of arteries of the lower extremities I74.3 Type 2 diabetes mellitus without complication, without long-term current use of insulin E11.9 Diabetes mellitus care home insulin use: without terminal clerk use Diabetes mellitus complication status: without complication Hyperdense renal cyst N28.1 Pneumonia J18.9 Laterality: right Lung location: lower lobe of lung Pneumonia type: due to unspecified organism Pulmonary vascular congestion R09.89 Acute worsening of stage 3 chronic kidney disease N18.30
--- NOTE | 2023-12-09 14:12 | PM.PN ---
Subjective Subjective: Patient was seen this morning, he reports feeling fatigued and tired, feels a bit short of breath, currently on 2 L, afebrile overnight, he is erythema around his right foot great toe has improved, his pain is starting to worsen he tells me Vitals/I&O/Wt Last Vital Signs Temp 98.0 F 12/09/23 11:39 Pulse 70 12/09/23 11:39 Resp 15 12/09/23 11:39 BP 161/52 12/09/23 11:39 Pulse Ox 91 12/09/23 11:39 O2 Del Method Nasal Cannula 12/09/23 11:39 O2 Flow Rate 3 12/09/23 08:15 12/08/23 12/09/23 12/09/23 22:59 06:59 14:59 Intake Total 710 / 1050.25 240 / 1290.25 480 / 480 Output Total 450 / 450 550 / 550 Balance 710 / 1050.25 -210 / 840.25 -70 / -70 Weight last 48 hrs Weight 79.379 kg Weight 78.471 kg Physical Exam Const: COMMON NORMALS: no acute distress and patient oriented x3 Resp: COMMON NORMALS: normal respiratory effort, No retractions and No use of accessory muscles AUSCULTATION: crackles Cardio: COMMON NORMALS: regular rate, regular rhythm, S1 normal heart sound present and S2 normal heart sound present RATE: regular rate RHYTHM: regular rhythm HEART SOUNDS: S1 normal heart sound present and S2 normal heart sound present GI: COMMON NORMALS: Normal to inspection, nondistended, normoactive bowel sounds present, non-tender and no bruits Extremity: COMMON NORMALS: no pedal edema Neuro: COMMON NORMALS: patient oriented x3 Psych: COMMON NORMALS: mental status grossly normal Skin: NARRATIVE SKIN EXAM: Area of erythema improving Data 12/09/23 02:29 12/09/23 02:29 A&P Assessment and plan (1) Hypertension: Qualifiers: Hypertension type: essential hypertension Qualified Code(s): I10 - Essential (primary) hypertension (2) Left subclavian artery occlusion: (3) Peripheral arterial disease: (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: (5) Type 2 diabetes mellitus: Qualifiers: Diabetes mellitus buttermaker helper insulin use: without halfway use Diabetes mellitus complication status: without complication Qualified Code(s): E11.9 - Type 2 diabetes mellitus without complications (6) Hyperdense renal cyst: (7) Pneumonia: Qualifiers: Laterality: right Lung location: lower lobe of lung Pneumonia type: due to unspecified organism Qualified Code(s): J18.9 - Pneumonia, unspecified organism (8) Pulmonary vascular congestion: (9) Acute worsening of stage 3 chronic kidney disease: (10) Acute lower limb ischemia: (11) Cellulitis: (12) Hemoptysis: (13) Acute renal failure: Plan Acute renal failure, creatinine up to 2.7, urine output lackluster at 425, need to watch acute creatinine urine output, with fatigue, malaise possibly related to uremia, monitor recheck BMP this afternoon Community-acquired pneumonia De-escalate antibiotics to doxycyclin No signs of confusion, no fever or sepsis Acute preserved ejection fraction CHF exacerbation, currently on 3 L, fluid overload is improving Currently on Lasix p.o. 20 mg twice daily creatinine 2.7 Blue toe syndrome, with cellulitis Has seen Dr. Brown in the past who has started him on anticoagulating agent Eliquis Plan for aorta with runoff once creatinine is stable, Now with more erythema, extending down at the base of the toe, on broad-spectrum antibiotic therapy for concerns for cellulitis, ? Severe intractable pain, continue oxycodone immediate release 5 to 10 mg every 4 hours as needed, scheduled oxycodone 5 mg ER twice daily, will space out Dilaudid to be used sparingly and transition for patient to have an outpatient regimen ? Concerns for developing acute on chronic limb ischemia, resolving ? ROBYN is 0.4 on the right ? Spoke to cardiology, will consult, ? Due to scant hemoptysis, resolved ? Continue aspirin, cilostazol, Eliquis Acute on chronic limb ischemia Intractable pain Good DP and PT pulses bilaterally no Ischemic ulcers Oxycodone for pain control as above Acute on chronic kidney disease stage III Mild exacerbation related to cardiorenal syndrome Creatinine up to 2.6, nephrology consulted acute on chronic -anemia 8.9 -will monitor -denies bloody or black stool hemoptysis, resolved Patient lives at home Fairly active for his age Full code Cardiac diet Plan for today, watch creatinine, watch urine output, Attestations Medical Necessity Statement*: Patient requires hospitalization for acute renal failure, with acute on chronic limb ischemia, acute on chronic anemia, blue toe syndrome Diagnoses Essential hypertension I10 Hypertension type: essential hypertension Left subclavian artery occlusion I70.8 Peripheral arterial disease I73.9 Embolism and thrombosis of arteries of the lower extremities I74.3 Type 2 diabetes mellitus without complication, without long-term current use of insulin E11.9 Diabetes mellitus buttermaker helper insulin use: without halfway use Diabetes mellitus complication status: without complication Hyperdense renal cyst N28.1 Pneumonia J18.9 Laterality: right Lung location: lower lobe of lung Pneumonia type: due to unspecified organism Pulmonary vascular congestion R09.89 Acute worsening of stage 3 chronic kidney disease N18.30 Acute lower limb ischemia I99.8 Cellulitis L03.90 Hemoptysis R04.2 Acute renal failure N17.9
[2023-12-09 14:48] LABS: Anion Gap 15.9 (5-19); Blood Urea Nitrogen 52 mg/dL (8-23); Calcium 8.8 mg/dL (8.5-10.5); Carbon Dioxide 26 mmol/L (22-29); Chloride 105 mmol/L (98-107); Glucose 219 mg/dL (65-115); Osmolality Calculated 317 mOsm/kg (285-295); Potassium 3.9 mmol/L (3.5-5.1); Sodium 143 mmol/L (136-145)
[2023-12-09 14:55] LABS: Creatinine Clr Calc Pharmacy 21.8886
--- NOTE | 2023-12-09 18:04 | P.PN_ITS ---
Subjective 2 Subjective: feels weak Medications: Reviewed: Yes Vitals/I&O/Wt Last Vital Signs Temp 98.3 F 12/09/23 16:00 Pulse 69 12/09/23 16:00 Resp 18 12/09/23 16:58 BP 134/50 12/09/23 16:00 Pulse Ox 96 12/09/23 16:58 O2 Del Method Nasal Cannula 12/09/23 16:00 O2 Flow Rate 3 12/09/23 08:15 12/09/23 12/09/23 12/09/23 06:59 14:59 22:59 Intake Total 240 / 1290.25 480 / 480 240 / 720 Output Total 450 / 450 550 / 550 Balance -210 / 840.25 -70 / -70 240 / 170 Weight last 48 hrs Weight 79.379 kg Weight 78.471 kg Physical Exam 2 Const: COMMON NORMALS: no acute distress and alert Extremity: NARRATIVE EXTREMITY EXAM: no edema, discolored right great toe Neuro: SENSORIUM/ORIENTATION: Yes alert Data 12/09/23 02:29 12/09/23 14:21 A&P Assessment and plan (1) Acute kidney injury: Plan 1. Acute kidney injury: renal function slightly worse hold lasix 2. 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 Nephrotic range proteinuria, hypoalbuminemia 3. Hypokalemia: resolved 4. Pneumonia: improved 5. Peripheral artery disease with ischemia left foot, angiogram postponed due to CLOTILDE, plan to do in future Attestations 2 Medical Necessity Statement*: per miri Coding Level of Care Code Acute Code for [facility] Diagnoses Acute kidney injury N17.9
[2023-12-09] MEDS: tamsulosin 0.4 mg Capsule 0.800000000000000044 MG PO (20:28)
[2023-12-10] VITALS (11 sets, daily range): BP systolic 131–175; BP diastolic 46–63; PULSE 63–84; RESP 16–18; TEMP 36.4–36.9; O2SAT 92–96
[2023-12-10 02:42] LABS: Basophils % 0.3 %; Eosinophils # 0.1 10^3/uL (0.0-0.8); Hematocrit 27.5 % (37-53); Lymphocytes # 1.7 10^3/uL (0.8-4.8); Lymphocytes % 24.6 %; Mean Corpuscular HGB Conc 31.6 g/dL (30-55); Mean Corpuscular Hemoglobin 31.3 pg (27-33); Mean Corpuscular Volume 98.9 fl (82-101); Mean Platelet Volume 10.3 fL (7.4-10.4); Monocytes # 1.1 10^3/uL (0.2-0.9); Monocytes % 15.2 %; Neutrophils # 3.73 10^3/uL (1.8-7.7); Nucleated Red Blood Cells % 0 %; Platelet Count 196 10^3/cmm (157-399); Red Blood Count 2.78 10^6/uL (3.85-5.65); Red Cell Distribution Width 11.8 % (12.1-15.1); White Blood Count 6.91 10^3/uL (3.29-11.43)
[2023-12-10 03:05] LABS: Alanine Aminotransferase 30 U/L (0-41); Alkaline Phosphatase 73 U/L (40-130); Anion Gap 14.9 (5-19); Aspartate Amino Transferase 35 U/L (0-40); Blood Urea Nitrogen 49 mg/dL (8-23); Calcium 8.6 mg/dL (8.5-10.5); Carbon Dioxide 25 mmol/L (22-29); Chloride 106 mmol/L (98-107); Creatinine Clr Calc Pharmacy 25.3908; Globulin 2.8 g/dL (1.3-4.6); Glucose 172 mg/dL (65-115); Magnesium 2.2 mg/dL (1.7-2.3); Osmolality Calculated 311 mOsm/kg (285-295); Phosphorus 4.2 mg/dL (2.5-4.5); Potassium 3.9 mmol/L (3.5-5.1); Sodium 142 mmol/L (136-145); Total Bilirubin 0.5 mg/dL (0.15-1.2); Total Protein 5.8 g/dL (6.6-8.7)
[2023-12-10 03:16] LABS: NT Pro B Type Natriuretic Pept 2439 pg/mL (0-450)
[2023-12-10] MEDS: hyDRALAzine 10 mg Tablet 25 MG PO ×3 (06:15→23:51)
--- NOTE | 2023-12-10 07:38 | PM.PN ---
Subjective Subjective: Patient's creatinine improving. Foot appearance also improving. Vitals/I&O/Wt Last Vital Signs Temp 98.3 F 12/10/23 04:00 Pulse 79 12/10/23 04:00 Resp 17 12/10/23 04:00 BP 131/53 12/10/23 04:00 Pulse Ox 94 12/10/23 04:00 O2 Del Method Nasal Cannula 12/10/23 04:00 O2 Flow Rate 2 12/09/23 19:46 12/09/23 12/10/23 12/10/23 22:59 06:59 14:59 Intake Total 240 / 720 Output Total 400 / 950 200 / 1150 Balance -160 / -230 -200 / -430 Weight last 48 hrs Weight 173 lb 9 oz Weight 175 lb Physical Exam Narrative: GENERAL: Patient is alert, awake and oriented x3. [] NECK: No jugular vein distension. [] HEENT: No cyanosis. No icterus. No pallor. [] HEART: Regular S1 and S2. No murmur, rub or gallop. [] LUNGS: Clear to auscultate bilaterally. [] CENTRAL NERVOUS SYSTEM: Grossly nonfocal. [] EXTREMITIES: Lower extremities no edema. Right foot pulse is dopplerable. Right big toe has bluish discoloration. Redness on foot improved. Data 12/10/23 02:29 12/10/23 02:29 A&P Assessment and plan (1) Limb ischemia: (2) Hypertension: Qualifiers: Hypertension type: essential hypertension Qualified Code(s): I10 - Essential (primary) hypertension (3) Left subclavian artery occlusion: (4) Peripheral arterial disease: (5) Embolism and thrombosis of arteries of the lower extremities: (6) Type 2 diabetes mellitus: Qualifiers: Diabetes mellitus intermediate school teacher insulin use: without intermediate school teacher use Diabetes mellitus complication status: without complication Qualified Code(s): E11.9 - Type 2 diabetes mellitus without complications (7) Hyperdense renal cyst: (8) Pneumonia: Qualifiers: Laterality: right Lung location: lower lobe of lung Pneumonia type: due to unspecified organism Qualified Code(s): J18.9 - Pneumonia, unspecified organism (9) Pulmonary vascular congestion: (10) Acute worsening of stage 3 chronic kidney disease: Plan Creatinine is improving. Foot appearance and pain improving. Continue eliquis. patient did not invasive procedures at this time secondary to risk for CATHIE. Thank you for involving us with care of this patient. Please call with questions. Attestations Medical Necessity Statement*: Care expected to cross 2 midnights. Coding Level of Care Code Acute Code for [facility] Diagnoses Limb ischemia I99.8 Essential hypertension I10 Hypertension type: essential hypertension Left subclavian artery occlusion I70.8 Peripheral arterial disease I73.9 Embolism and thrombosis of arteries of the lower extremities I74.3 Type 2 diabetes mellitus without complication, without long-term current use of insulin E11.9 Diabetes mellitus intermediate school teacher insulin use: without nursing home use Diabetes mellitus complication status: without complication Hyperdense renal cyst N28.1 Pneumonia J18.9 Laterality: right Lung location: lower lobe of lung Pneumonia type: due to unspecified organism Pulmonary vascular congestion R09.89 Acute worsening of stage 3 chronic kidney disease N18.30
[2023-12-10] MEDS: oxyCODONE 10 mg ER (12 HR) Tablet 5 MG PO ×2 (09:28→17:21)
[2023-12-10] MEDS: atorvastatin 40 mg Tablet 80 MG PO (09:29)
[2023-12-10] MEDS: sennosides-docusate Tablet 1 TAB PO (09:29)
[2023-12-10] MEDS: cilostazol 100 mg Tablet 50 MG PO ×2 (09:29→17:22)
[2023-12-10] MEDS: doxycycline 100 mg Tablet PO ×2 (09:29→17:22)
[2023-12-10] MEDS: aspirin 81 mg EC Tablet PO (09:30)
[2023-12-10] MEDS: metoprolol tartrate 25 mg Tablet PO ×2 (09:32→20:12)
--- NOTE | 2023-12-10 12:13 | PM.PN ---
Subjective Subjective: feels better Medications: Reviewed: Yes Vitals/I&O/Wt Last Vital Signs Temp 98.3 F 12/10/23 11:49 Pulse 71 12/10/23 11:49 Resp 16 12/10/23 11:49 BP 139/46 12/10/23 11:49 Pulse Ox 95 12/10/23 11:49 O2 Del Method Nasal Cannula 12/10/23 11:49 O2 Flow Rate 2 12/10/23 10:00 12/09/23 12/10/23 12/10/23 22:59 06:59 14:59 Intake Total 240 / 720 600 / 600 Output Total 400 / 950 200 / 1150 200 / 200 Balance -160 / -230 -200 / -430 400 / 400 Weight last 48 hrs Weight 78.727 kg Weight 79.379 kg Physical Exam Const: COMMON NORMALS: no acute distress and alert Extremity: NARRATIVE EXTREMITY EXAM: no edema, discolored right great toe Neuro: SENSORIUM/ORIENTATION: Yes alert Data 12/10/23 02:29 12/10/23 02:29 A&P Assessment and plan (1) Acute kidney injury: Plan 1. Acute kidney injury: renal function stable , can restart po lasix 20 mg daily 2. 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 Nephrotic range proteinuria, hypoalbuminemia 3. Hypokalemia: resolved 4. Pneumonia: improved 5. Peripheral artery disease with ischemia left foot, angiogram postponed due to CLOTILDE, plan to do in future Attestations Medical Necessity Statement*: per miri Coding Level of Care Code Acute Code for [facility] Diagnoses Acute kidney injury N17.9
[2023-12-10] MEDS: apixaban 5 mg Tablet 2.5 MG PO ×2 (12:40→23:51)
--- NOTE | 2023-12-10 14:41 | PM.PN ---
Subjective Subjective: Patient was seen this morning, he feels better this morning, creatinine 2.5 no fevers, chills, no cough, his right foot erythema significantly improved, no significant blue hue to the right toe, DP PT pulses present Vitals/I&O/Wt Last Vital Signs Temp 98.3 F 12/10/23 11:49 Pulse 71 12/10/23 11:49 Resp 16 12/10/23 11:49 BP 139/46 12/10/23 11:49 Pulse Ox 95 12/10/23 11:49 O2 Del Method Nasal Cannula 12/10/23 11:49 O2 Flow Rate 2 12/10/23 10:00 12/09/23 12/10/23 12/10/23 22:59 06:59 14:59 Intake Total 240 / 720 1080 / 1080 Output Total 400 / 950 200 / 1150 300 / 300 Balance -160 / -230 -200 / -430 780 / 780 Weight last 48 hrs Weight 78.727 kg Weight 79.379 kg Physical Exam Const: COMMON NORMALS: no acute distress and patient oriented x3 Resp: COMMON NORMALS: normal respiratory effort, No retractions, No use of accessory muscles and clear to auscultation bilaterally AUSCULTATION: clear to auscultation bilaterally Cardio: COMMON NORMALS: regular rate, regular rhythm, S1 normal heart sound present and S2 normal heart sound present RATE: regular rate RHYTHM: regular rhythm HEART SOUNDS: S1 normal heart sound present and S2 normal heart sound present GI: COMMON NORMALS: Normal to inspection, nondistended, normoactive bowel sounds present and non-tender Extremity: COMMON NORMALS: no pedal edema Neuro: COMMON NORMALS: patient oriented x3 Psych: COMMON NORMALS: mental status grossly normal Data 12/10/23 02:29 12/10/23 02:29 A&P Assessment and plan (1) Hypertension: Qualifiers: Hypertension type: essential hypertension Qualified Code(s): I10 - Essential (primary) hypertension (2) Left subclavian artery occlusion: (3) Peripheral arterial disease: (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: (5) Type 2 diabetes mellitus: Qualifiers: Diabetes mellitus long distance operator insulin use: without long distance operator use Diabetes mellitus complication status: without complication Qualified Code(s): E11.9 - Type 2 diabetes mellitus without complications (6) Hyperdense renal cyst: (7) Pneumonia: Qualifiers: Laterality: right Lung location: lower lobe of lung Pneumonia type: due to unspecified organism Qualified Code(s): J18.9 - Pneumonia, unspecified organism (8) Pulmonary vascular congestion: (9) Acute worsening of stage 3 chronic kidney disease: (10) Acute lower limb ischemia: (11) Cellulitis: (12) Hemoptysis: (13) Acute renal failure: Plan Acute renal failure, creatinine up to2.5, urine output lackluster at900, need to watch acute creatinine urine output, with fatigue, malaise possibly related to uremia, monitor recheck BMP this afternoon Community-acquired pneumonia De-escalate antibiotics to doxycyclin No signs of confusion, no fever or sepsis Acute preserved ejection fraction CHF exacerbation, currently on 3 L, fluid overload is improving Currently on Lasix p.o. 20 mg twice daily creatinine 2.5 Blue toe syndrome, with cellulitis Has seen Dr. Brown in the past who has started him on anticoagulating agent Eliquis Plan for aorta with runoff once creatinine is stable, Now with more erythema, extending down at the base of the toe, on broad-spectrum antibiotic therapy for concerns for cellulitis, ? Severe intractable pain, continue oxycodone immediate release 5 to 10 mg every 4 hours as needed, scheduled oxycodone 5 mg ER twice daily, will space out Dilaudid to be used sparingly and transition for patient to have an outpatient regimen ? Concerns for developing acute on chronic limb ischemia, resolving ? ROBYN is 0.4 on the right ? Spoke to cardiology, will consult, ? Due to scant hemoptysis, resolved ? Continue aspirin, cilostazol, Eliquis Acute on chronic limb ischemia Intractable pain Good DP and PT pulses bilaterally no Ischemic ulcers Oxycodone for pain control as above Acute on chronic kidney disease stage III Mild exacerbation related to cardiorenal syndrome Creatinine up to 2.6, nephrology consulted acute on chronic -anemia 8.9 -will monitor -denies bloody or black stool hemoptysis, resolved Patient lives at home Fairly active for his age Full code Cardiac diet Plan for today, watch creatinine, watch urine output, Attestations Medical Necessity Statement*: Patient requires hospitalization for acute renal failure Diagnoses Essential hypertension I10 Hypertension type: essential hypertension Left subclavian artery occlusion I70.8 Peripheral arterial disease I73.9 Embolism and thrombosis of arteries of the lower extremities I74.3 Type 2 diabetes mellitus without complication, without long-term current use of insulin E11.9 Diabetes mellitus long distance operator insulin use: without longterm use Diabetes mellitus complication status: without complication Hyperdense renal cyst N28.1 Pneumonia J18.9 Laterality: right Lung location: lower lobe of lung Pneumonia type: due to unspecified organism Pulmonary vascular congestion R09.89 Acute worsening of stage 3 chronic kidney disease N18.30 Acute lower limb ischemia I99.8 Cellulitis L03.90 Hemoptysis R04.2 Acute renal failure N17.9
[2023-12-10] MEDS: oxyCODONE 5 mg IR Tab/Cap PO (20:09)
[2023-12-10] MEDS: tamsulosin 0.4 mg Capsule 0.800000000000000044 MG PO (20:12)
[2023-12-11 03:30] LABS: Basophils % 0.3 %; Eosinophils # 0.1 10^3/uL (0.0-0.8); Eosinophils % 1.9 %; Hematocrit 25.7 % (37-53); Lymphocytes # 1.5 10^3/uL (0.8-4.8); Lymphocytes % 21.5 %; Mean Corpuscular HGB Conc 31.5 g/dL (30-55); Mean Corpuscular Hemoglobin 31.2 pg (27-33); Mean Corpuscular Volume 98.8 fl (82-101); Mean Platelet Volume 10.3 fL (7.4-10.4); Monocytes # 1.2 10^3/uL (0.2-0.9); Monocytes % 17.8 %; Neutrophils # 3.83 10^3/uL (1.8-7.7); Neutrophils % 56.9 %; Nucleated Red Blood Cells % 0 %; Platelet Count 190 10^3/cmm (157-399); Red Cell Distribution Width 11.7 % (12.1-15.1); White Blood Count 6.74 10^3/uL (3.29-11.43)
[2023-12-11 03:49] VITALS: BP 163/61; PULSE 79; RESP 17; TEMP 36.8; O2SAT 93
[2023-12-11 03:52] LABS: Alanine Aminotransferase 30 U/L (0-41); Albumin Level 3.1 g/dL (3.5-5.2); Alkaline Phosphatase 70 U/L (40-130); Anion Gap 14.1 (5-19); Aspartate Amino Transferase 30 U/L (0-40); Blood Urea Nitrogen 53 mg/dL (8-23); Calcium 8.1 mg/dL (8.5-10.5); Carbon Dioxide 26 mmol/L (22-29); Chloride 108 mmol/L (98-107); Creatinine Clr Calc Pharmacy 26.3521; Globulin 1.7 g/dL (1.3-4.6); Glucose 159 mg/dL (65-115); Magnesium 2.3 mg/dL (1.7-2.3); Osmolality Calculated 316 mOsm/kg (285-295); Phosphorus 3.4 mg/dL (2.5-4.5); Potassium 4.1 mmol/L (3.5-5.1); Sodium 144 mmol/L (136-145); Total Bilirubin 0.3 mg/dL (0.15-1.2); Total Protein 4.8 g/dL (6.6-8.7)
[2023-12-11 04:06] LABS: NT Pro B Type Natriuretic Pept 3310 pg/mL (0-450)
[2023-12-11 04:50] VITALS: RESP 17; O2SAT 93
[2023-12-11] MEDS: oxyCODONE 5 mg IR Tab/Cap PO (04:50)
[2023-12-11] MEDS: hyDRALAzine 10 mg Tablet 25 MG PO (06:28)
[2023-12-11 08:00] VITALS: BP 145/54; PULSE 75; RESP 16; TEMP 36.8; O2SAT 94
[2023-12-11 08:18] VITALS: PULSE 82; RESP 16; O2SAT 93
--- NOTE | 2023-12-11 08:55 | P.PN_ITS ---
Subjective 2 Subjective: DOINGNWELL Medications: Reviewed: Yes Vitals/I&O/Wt Last Vital Signs Temp 98.3 F 12/11/23 08:00 Pulse 82 12/11/23 08:18 Resp 16 12/11/23 08:18 BP 145/54 12/11/23 08:00 Pulse Ox 93 12/11/23 08:18 O2 Del Method Nasal Cannula 12/11/23 08:18 O2 Flow Rate 2 12/11/23 08:18 12/10/23 12/11/23 12/11/23 22:59 06:59 14:59 Intake Total 240 / 1320 222 / 1542 480 / 480 Output Total 450 / 450 Balance 240 / 1020 222 / 1242 30 / 30 Weight last 48 hrs Weight 78.608 kg Weight 78.727 kg Physical Exam 2 Const: COMMON NORMALS: no acute distress and alert Extremity: NARRATIVE EXTREMITY EXAM: no edema, discolored right great toe Neuro: SENSORIUM/ORIENTATION: Yes alert Data 12/11/23 03:07 12/11/23 03:07 A&P Assessment and plan (1) Acute kidney injury: Plan 1. Acute kidney injury: baseline Cr 1.5 to 2 range . renal function currently , stable , can restart po lasix 20 mg daily .stable for DC from renal standpoint and arrange follow up labs in 1-2 weeks . 2. 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 Nephrotic range proteinuria, hypoalbuminemia 3. Hypokalemia: resolved 4. Pneumonia: improved 5. Peripheral artery disease with ischemia left foot, angiogram postponed due to CLOTILDE, plan to do in future Attestations 2 Medical Necessity Statement*: per miri Coding Level of Care Code Acute Code for [facility] Diagnoses Acute kidney injury N17.9
[2023-12-11 09:01] VITALS: RESP 16; O2SAT 93
[2023-12-11] MEDS: aspirin 81 mg EC Tablet PO (09:01)
[2023-12-11] MEDS: oxyCODONE 10 mg ER (12 HR) Tablet 5 MG PO (09:01)
[2023-12-11] MEDS: atorvastatin 40 mg Tablet 80 MG PO (09:01)
[2023-12-11] MEDS: cilostazol 100 mg Tablet 50 MG PO (09:02)
[2023-12-11] MEDS: doxycycline 100 mg Tablet PO (09:03)
[2023-12-11] MEDS: metoprolol tartrate 25 mg Tablet PO (09:03)
--- NOTE | 2023-12-11 09:06 | P.PN_ITS ---
Subjective 2 Subjective: Patient is overall doing well. Breathing is better. Toe color is improving Vitals/I&O/Wt Last Vital Signs Temp 98.3 F 12/11/23 08:00 Pulse 82 12/11/23 08:18 Resp 16 12/11/23 09:01 BP 145/54 12/11/23 08:00 Pulse Ox 93 12/11/23 09:01 O2 Del Method Nasal Cannula 12/11/23 08:18 O2 Flow Rate 2 12/11/23 08:18 12/10/23 12/11/23 12/11/23 22:59 06:59 14:59 Intake Total 240 / 1320 222 / 1542 480 / 480 Output Total 450 / 450 Balance 240 / 1020 222 / 1242 30 / 30 Weight last 48 hrs Weight 173 lb 4.8 oz Weight 173 lb 9 oz Physical Exam 2 Narrative: GENERAL: Patient is alert, awake and oriented x3. [] NECK: No jugular vein distension. [] HEENT: No cyanosis. No icterus. No pallor. [] HEART: Regular S1 and S2. No murmur, rub or gallop. [] LUNGS: Clear to auscultate bilaterally. [] CENTRAL NERVOUS SYSTEM: Grossly nonfocal. [] EXTREMITIES: Lower extremities no edema. Right foot pulse is dopplerable. Right big toe has bluish discoloration. Redness on foot improved. Data 12/11/23 03:07 12/11/23 03:07 A&P Assessment and plan (1) Limb ischemia: (2) Hypertension: Qualifiers: Hypertension type: essential hypertension Qualified Code(s): I10 - Essential (primary) hypertension (3) Left subclavian artery occlusion: (4) Peripheral arterial disease: (5) Embolism and thrombosis of arteries of the lower extremities: (6) Type 2 diabetes mellitus: Qualifiers: Diabetes mellitus skilled nursing insulin use: without skilled nursing use Diabetes mellitus complication status: without complication Qualified Code(s): E11.9 - Type 2 diabetes mellitus without complications (7) Hyperdense renal cyst: (8) Pneumonia: Qualifiers: Laterality: right Lung location: lower lobe of lung Pneumonia type: d ue to unspecified organism Qualified Code(s): J18.9 - Pneumonia, unspecified organism (9) Pulmonary vascular congestion: (10) Acute worsening of stage 3 chronic kidney disease: Plan Patient is overall stable. Creatinine is improving. Continue Eliquis. Outpatient cardiology follow-up. Attestations 2 Medical Necessity Statement*: Care expected to cross 2 midnights. Coding Level of Care Code Acute Code for [facility] Diagnoses Limb ischemia I99.8 Essential hypertension I10 Hypertension type: essential hypertension Left subclavian artery occlusion I70.8 Peripheral arterial disease I73.9 Embolism and thrombosis of arteries of the lower extremities I74.3 Type 2 diabetes mellitus without complication, without long-term current use of insulin E11.9 Diabetes mellitus skilled nursing insulin use: without termite control technician use Diabetes mellitus complication status: without complication Hyperdense renal cyst N28.1 Pneumonia J18.9 Laterality: right Lung location: lower lobe of lung Pneumonia type: due to unspecified organism Pulmonary vascular congestion R09.89 Acute worsening of stage 3 chronic kidney disease N18.30
[2023-12-11] MEDS: sennosides-docusate Tablet 1 TAB PO (09:38)
[2023-12-11 11:25] VITALS: BP 180/61; PULSE 69; RESP 18; TEMP 36.8; O2SAT 91
--- NOTE | 2023-12-11 13:48 | PC.NURSE ---
PICC LINE REMOVAL PICC line removed. Catheter intact upon removal and patient tolerated well.
== END 2023-12-11 14:24 | disposition home health service (06) | DRG 299 ==
LOC: ER 18:26 → MEDSURG 19:38
PROVIDERS: Family Medicine; Internal Medicine; Admitting Provider Student in an Organized Health Care Education/Training Program; Emergency Provider Internal Medicine; PCP Nurse Practitioner; Visit Provider Internal Medicine
DX: E11.51 Type 2 diabetes mellitus with diabetic peripheral angiopathy without gangrene (principal); I50.31 Acute diastolic (congestive) heart failure; J18.9 Pneumonia, unspecified organism; J44.0 Chronic obstructive pulmonary disease with (acute) lower respiratory infection; R04.2 Hemoptysis; L03.115 Cellulitis of right lower limb; N17.9 Acute kidney failure, unspecified; I75.021 Atheroembolism of right lower extremity; E11.22 Type 2 diabetes mellitus with diabetic chronic kidney disease; N18.30 Chronic kidney disease, stage 3 unspecified; I25.10 Atherosclerotic heart disease of native coronary artery without angina pectoris; I11.0 Hypertensive heart disease with heart failure; E78.5 Hyperlipidemia, unspecified; M54.50 Low back pain, unspecified; E55.9 Vitamin D deficiency, unspecified; K44.9 Diaphragmatic hernia without obstruction or gangrene; E88.09 Other disorders of plasma-protein metabolism, not elsewhere classified; E87.6 Hypokalemia; H35.039 Hypertensive retinopathy, unspecified eye; N28.1 Cyst of kidney, acquired; Z79.01 Long term (current) use of anticoagulants; Z11.52 Encounter for screening for COVID-19; Z85.828 Personal history of other malignant neoplasm of skin; Z86.718 Personal history of other venous thrombosis and embolism; Z87.891 Personal history of nicotine dependence; Z90.49 Acquired absence of other specified parts of digestive tract
CPT/HCPCS: 36415; 36573; 36592; 71045; 80048; 80053; 81001; 82550; 82575; 82728; 83540; 83550; 83605; 83735; 83880; 84100; 84145; 84156; 84300; 84443; 84484; 85007; 85014; 85018; 85025; 85378; 85730; 86140; 87040; 87486; 87581; 87633; 93005; 93306; 93925; 94760; 96365; 97116; 97161; 97162; 97165; 99285; C1751; J0360; J0692; J0696; J1170; J1644; J1940; J2020; J2270; J7030; J7040; J7070; P9046; Q0144; Q3014

== ENCOUNTER 2024-03-11 06:00 | Outpatient (RCR) | payer OTHER, SELFPAY | END 2024-04-10 23:59 | disposition home or self-care (01) | LOC: WPT 06:00 | PROVIDERS: Visit Provider Nurse Practitioner | DX: J44.9 Chronic obstructive pulmonary disease, unspecified (principal) | CPT/HCPCS: 97110; 97112; 97161 ==

== ENCOUNTER 2024-04-11 06:00 | Outpatient (RCR) | payer OTHER, SELFPAY | END 2024-05-11 23:59 | disposition home or self-care (01) | LOC: WPT 06:00 | PROVIDERS: Visit Provider Nurse Practitioner | DX: J44.9 Chronic obstructive pulmonary disease, unspecified (principal) | CPT/HCPCS: 97110; 97112; 97530 ==

== ENCOUNTER → 2024-05-15 08:25 | Outpatient (BNVA) | payer OTHER, SELFPAY | PROVIDERS: Visit Provider Nurse Practitioner Family | DX: L30.9 Dermatitis, unspecified (principal); D48.5 Neoplasm of uncertain behavior of skin; L57.0 Actinic keratosis; L81.4 Other melanin hyperpigmentation; Z85.828 Personal history of other malignant neoplasm of skin | CPT/HCPCS: 11102; 17000; 99214 ==

== ENCOUNTER → 2024-05-30 14:14 | Outpatient (BNVA) | payer OTHER, SELFPAY | PROVIDERS: Visit Provider Nurse Practitioner Family | DX: D04.39 Carcinoma in situ of skin of other parts of face (principal); L23.9 Allergic contact dermatitis, unspecified cause | CPT/HCPCS: 99213 ==

== ENCOUNTER → 2024-06-18 10:51 | Outpatient (BNVA) | payer OTHER, SELFPAY | PROVIDERS: Visit Provider Dermatology | DX: D04.39 Carcinoma in situ of skin of other parts of face (principal); D48.5 Neoplasm of uncertain behavior of skin; L81.4 Other melanin hyperpigmentation; L57.8 Other skin changes due to chronic exposure to nonionizing radiation; L23.9 Allergic contact dermatitis, unspecified cause | CPT/HCPCS: 17280; 69100; 99213 ==

== ENCOUNTER 2024-06-25 11:58 | Outpatient (CLI) | payer OTHER, SELFPAY ==
[2024-06-25 12:48] LABS: Albumin Level 4.4 g/dL (3.5-5.2); Anion Gap 13.3 (5-19); Blood Urea Nitrogen 58 mg/dL (8-23); Calcium 8.7 mg/dL (8.5-10.5); Carbon Dioxide 27 mmol/L (22-29); Chloride 106 mmol/L (98-107); Glucose 108 mg/dL (65-115); Phosphorus 4.5 mg/dL (2.5-4.5); Potassium 4.3 mmol/L (3.5-5.1); Sodium 142 mmol/L (136-145)
== END 2024-06-25 11:59 | disposition home or self-care (01) ==
LOC: LAB 12:01
PROVIDERS: PCP Nurse Practitioner; Visit Provider Registered Nurse
DX: N18.31 Chronic kidney disease, stage 3a (principal)
CPT/HCPCS: 36415; 80069

== ENCOUNTER → 2024-10-03 11:40 | Outpatient (BNVA) | payer OTHER, SELFPAY | PROVIDERS: PCP Nurse Practitioner Family; Visit Provider Registered Nurse | DX: N17.9 Acute kidney failure, unspecified (principal); N18.30 Chronic kidney disease, stage 3 unspecified | CPT/HCPCS: 80069; 82043; 82310; 83970; 85025 ==

== ENCOUNTER → 2024-10-10 12:22 | Outpatient (BNVA) | payer OTHER, SELFPAY | PROVIDERS: PCP Nurse Practitioner Family; Visit Provider Nurse Practitioner Family | DX: L81.4 Other melanin hyperpigmentation (principal); Z08 Encounter for follow-up examination after completed treatment for malignant neoplasm; Z85.828 Personal history of other malignant neoplasm of skin; L82.0 Inflamed seborrheic keratosis; Z78.9 Other specified health status; R20.8 Other disturbances of skin sensation; D48.5 Neoplasm of uncertain behavior of skin; L57.0 Actinic keratosis | CPT/HCPCS: 11102; 17000; 17110; 99213 ==

== ENCOUNTER → 2024-11-26 09:04 | Outpatient (BNVA) | payer OTHER, SELFPAY | PROVIDERS: PCP Nurse Practitioner Family; Visit Provider Dermatology | DX: C44.319 Basal cell carcinoma of skin of other parts of face (principal); D04.39 Carcinoma in situ of skin of other parts of face; L57.0 Actinic keratosis | CPT/HCPCS: 17000; 17282 ==

== ENCOUNTER 2024-12-26 16:15 | Outpatient (CLI) | payer OTHER, SELFPAY ==
[2024-12-26 17:03] LABS: Erythrocyte Sedimentation Rate < 1 mm/hr (0-10)
== END 2024-12-26 16:16 | disposition home or self-care (01) ==
LOC: LAB 16:33
PROVIDERS: PCP Nurse Practitioner Family; Visit Provider Student in an Organized Health Care Education/Training Program
DX: H34.8320 Tributary (branch) retinal vein occlusion, left eye, with macular edema (principal)
CPT/HCPCS: 36415; 85651; 86140

== ENCOUNTER 2025-01-29 11:52 | Outpatient (CLI) | payer OTHER, SELFPAY ==
[2025-01-29 12:30] LABS: Basophils % 0.2 %; Eosinophils % 0.7 %; Hematocrit 39.4 % (37-53); Lymphocytes # 1.5 10^3/uL (0.8-4.8); Lymphocytes % 32.2 %; Mean Corpuscular HGB Conc 34.3 g/dL (30-55); Mean Corpuscular Hemoglobin 31.5 pg (27-33); Mean Corpuscular Volume 92.1 fl (82-101); Mean Platelet Volume 10.6 fL (7.4-10.4); Monocytes # 0.8 10^3/uL (0.2-0.9); Monocytes % 17.5 %; Neutrophils # 2.17 10^3/uL (1.8-7.7); Neutrophils % 47.6 %; Nucleated Red Blood Cells % 0 %; Platelet Count 150 10^3/cmm (157-399); Red Blood Count 4.28 10^6/uL (3.85-5.65); Red Cell Distribution Width 11.7 % (12.1-15.1); White Blood Count 4.56 10^3/uL (3.29-11.43)
[2025-01-29 12:45] LABS: Creatinine Urine, Random 34 mg/dL (39-259); Microalbum Creatinine Ratio Ur 588 mg/dL (0-20); Microalbumin Random Urine 20 ug/dL (0-20)
[2025-01-29 12:48] LABS: Albumin Level 4.4 g/dL (3.5-5.2); Anion Gap 18.9 (5-19); Blood Urea Nitrogen 53 mg/dL (8-23); Calcium 8.8 mg/dL (8.5-10.5); Carbon Dioxide 20 mmol/L (22-29); Chloride 105 mmol/L (98-107); Glucose 118 mg/dL (65-115); Phosphorus 4.5 mg/dL (2.5-4.5); Potassium 3.9 mmol/L (3.5-5.1); Sodium 140 mmol/L (136-145)
[2025-01-29 12:51] LABS: Calcium 8.8 mg/dL (8.5-10.5)
[2025-01-29 12:54] LABS: Parathyroid Hormone 112.7 pg/mL (15-65)
== END 2025-01-29 11:53 | disposition home or self-care (01) ==
LOC: LAB 11:56
PROVIDERS: PCP Nurse Practitioner; Visit Provider Registered Nurse
DX: N18.4 Chronic kidney disease, stage 4 (severe) (principal)
CPT/HCPCS: 36415; 80069; 82044; 82310; 83970; 85025

== ENCOUNTER → 2025-02-06 13:39 | Outpatient (BNVA) | payer OTHER, SELFPAY | PROVIDERS: PCP Nurse Practitioner; Visit Provider Nurse Practitioner Family | DX: F42.4 Excoriation (skin-picking) disorder (principal); L82.1 Other seborrheic keratosis; L81.4 Other melanin hyperpigmentation; L57.8 Other skin changes due to chronic exposure to nonionizing radiation; X32.XXXA Exposure to sunlight, initial encounter; L57.0 Actinic keratosis; Z08 Encounter for follow-up examination after completed treatment for malignant neoplasm; Z85.828 Personal history of other malignant neoplasm of skin; D48.5 Neoplasm of uncertain behavior of skin | CPT/HCPCS: 11102; 17000; 99214 ==

== ENCOUNTER → 2025-03-12 13:59 | Outpatient (BNVA) | payer OTHER, SELFPAY | PROVIDERS: PCP Nurse Practitioner; Visit Provider Nurse Practitioner Family | DX: F42.4 Excoriation (skin-picking) disorder (principal); L57.8 Other skin changes due to chronic exposure to nonionizing radiation; X32.XXXA Exposure to sunlight, initial encounter; L57.0 Actinic keratosis; L81.4 Other melanin hyperpigmentation; Z08 Encounter for follow-up examination after completed treatment for malignant neoplasm; Z85.828 Personal history of other malignant neoplasm of skin; D48.5 Neoplasm of uncertain behavior of skin | CPT/HCPCS: 11102; 17000; 99213 ==

== ENCOUNTER → 2025-04-03 08:04 | Outpatient (BNVA) | payer OTHER, SELFPAY | PROVIDERS: PCP Nurse Practitioner; Visit Provider Dermatology | DX: S50.812A Abrasion of left forearm, initial encounter (principal); D69.2 Other nonthrombocytopenic purpura; Z08 Encounter for follow-up examination after completed treatment for malignant neoplasm; Z85.828 Personal history of other malignant neoplasm of skin; C44.319 Basal cell carcinoma of skin of other parts of face; D48.5 Neoplasm of uncertain behavior of skin; L57.0 Actinic keratosis | CPT/HCPCS: 11102; 17000; 17280; 17282; 99213 ==

== ENCOUNTER 2025-04-29 12:10 | Outpatient (CLI) | payer OTHER, SELFPAY ==
[2025-04-29 12:57] LABS: Hematocrit 35.9 % (37-53); Hemoglobin 12.10 g/dL (11.27-16.99); Mean Corpuscular HGB Conc 33.7 g/dL (30-55); Mean Corpuscular Hemoglobin 30.6 pg (27-33); Mean Corpuscular Volume 90.9 fl (82-101); Nucleated Red Blood Cells % 0 %; Platelet Count 135 10^3/cmm (157-399); Red Blood Count 3.95 10^6/uL (3.85-5.65); White Blood Count 4.19 10^3/uL (3.29-11.43)
[2025-04-29 13:18] LABS: Calcium 8.3 mg/dL (8.5-10.5)
[2025-04-29 13:21] LABS: Creatinine Urine, Random 28 mg/dL (39-259)
[2025-04-29 13:22] LABS: Microalbum Creatinine Ratio Ur 714 mg/dL (0-20)
[2025-04-29 13:25] LABS: Albumin Level 4.2 g/dL (3.5-5.2); Anion Gap 17.3 (5-19); Blood Urea Nitrogen 54 mg/dL (8-23); Calcium 8.3 mg/dL (8.5-10.5); Carbon Dioxide 22 mmol/L (22-29); Chloride 107 mmol/L (98-107); Glucose 100 mg/dL (65-115); Potassium 4.3 mmol/L (3.5-5.1); Sodium 142 mmol/L (136-145)
== END 2025-04-29 12:11 | disposition home or self-care (01) ==
LOC: LAB 12:11
PROVIDERS: PCP Nurse Practitioner; Visit Provider Registered Nurse
DX: N18.4 Chronic kidney disease, stage 4 (severe) (principal)
CPT/HCPCS: 36415; 80069; 82044; 82310; 83970; 85025

== ENCOUNTER 2025-07-23 11:10 | Outpatient (CLI) | payer OTHER, SELFPAY ==
[2025-07-23 12:20] LABS: Hematocrit 41.3 % (37-53); Hemoglobin 13.80 g/dL (11.27-16.99); Mean Corpuscular HGB Conc 33.4 g/dL (30-55); Mean Corpuscular Hemoglobin 30.3 pg (27-33); Mean Corpuscular Volume 90.8 fl (82-101); Nucleated Red Blood Cells % 0 %; Platelet Count 152 10^3/cmm (157-399); Red Blood Count 4.55 10^6/uL (3.85-5.65); White Blood Count 5.24 10^3/uL (3.29-11.43)
[2025-07-23 12:37] LABS: Calcium 8.6 mg/dL (8.5-10.5)
[2025-07-23 12:38] LABS: Creatinine Urine, Random 28 mg/dL (39-259)
[2025-07-23 12:39] LABS: Microalbum Creatinine Ratio Ur 643 mg/dL (0-20)
[2025-07-23 12:45] LABS: Albumin Level 4.5 g/dL (3.5-5.2); Anion Gap 17.2 (5-19); Blood Urea Nitrogen 63 mg/dL (8-23); Calcium 8.8 mg/dL (8.5-10.5); Carbon Dioxide 24 mmol/L (22-29); Chloride 105 mmol/L (98-107); Glucose 105 mg/dL (65-115); Potassium 4.2 mmol/L (3.5-5.1); Sodium 142 mmol/L (136-145)
== END 2025-07-23 11:11 | disposition home or self-care (01) ==
PROVIDERS: PCP Nurse Practitioner; Visit Provider Registered Nurse
DX: N18.4 Chronic kidney disease, stage 4 (severe) (principal)
CPT/HCPCS: 36415; 80069; 82044; 82306; 82310; 83970; 85025

== ENCOUNTER → 2025-07-24 13:50 | Outpatient (BNVA) | payer OTHER, SELFPAY | PROVIDERS: PCP Nurse Practitioner; Visit Provider Nurse Practitioner Family | DX: D18.01 Hemangioma of skin and subcutaneous tissue (principal); L81.4 Other melanin hyperpigmentation; L57.8 Other skin changes due to chronic exposure to nonionizing radiation; Z08 Encounter for follow-up examination after completed treatment for malignant neoplasm; Z85.828 Personal history of other malignant neoplasm of skin; L72.0 Epidermal cyst; L57.0 Actinic keratosis | CPT/HCPCS: 10060; 17000; 99213 ==